=== PATIENT | female | born 1930 | race Caucasian/White ===

== ENCOUNTER 2017-08-23 10:41 | Inpatient (IN) | payer MEDICARE ==
[2017-08-23] MEDS ORDERED: NS 0.9% 1000 ML* 1,000 ML IV ONE (11:23)
[2017-08-23 11:59] LABS: ABS Basophils 0.1 10^3/ul (0-0.2); ABS Eosinophils 0 10^3/ul (0-0.6); ABS Lymphocytes 0.5 10^3/ul (1.0-4.8); ABS Monocytes 0.7 10^3/ul (0-0.8); ABS Neutrophils 13.7 10^3/ul (1.5-7.7); ABS Nucleated RBC 0 10^3/ul; Eosinophil % 0 % (0-6); Hematocrit 39 % (35-47); Hemoglobin 13.1 g/dl (12.0-16.0); Lymphocyte % 3.6 % (25-47); Mean Corpuscular HGB Conc 34 g/dl (31-36); Mean Corpuscular Hemoglobin 29 pg (27-31); Mean Corpuscular Volume 85 fL (80-97); Mean Platelet Volume 8 um3 (7.4-10.4); Nucleated Red Blood Cells % 0; Platelet Count 341 10^3/ul (150-450); Red Blood Count 4.55 10^6/ul (4.0-5.4); Red Cell Distribution Width 15 % (10.5-15)
[2017-08-23 12:14] LABS: EGFR Non-African American 61.3 (>60)
[2017-08-23 12:41] LABS: Urine Appearance Cloudy; Urine Blood 1+ (Negative); Urine Color Yellow; Urine Ketones 2+ (Negative); Urine Protein 2+(100 mg/dL) (Negative); Urine Urobilinogen Negative (Negative)
[2017-08-23] MEDS: KCL 10 MEQ/50 ML IVPREMIX* 10 MEQ/50 ML BAG IV SCH ×2 (13:21→22:58)
--- NOTE | 2017-08-23 13:22 | RAD ---
INDICATION: Abdominal pain COMPARISON: None TECHNIQUE: Decubitus and supine views of the abdomen are submitted. FINDINGS: Bones: There are no acute bony findings. Soft tissues: The soft tissues appear normal. The psoas margins are sharp. Bowel gas pattern: There are scattered air-filled loops small bowel but there is air within in the colon and there is no bowel dilatation. The findings could be related to an earlier partial small bowel obstruction. Suggest follow-up as clinically indicated. Calcifications: There are no abnormal calcifications. Other: None IMPRESSION: POSSIBLE EARLY OR PARTIAL SMALL BOWEL OBSTRUCTION. SUGGEST A FOLLOW-UP ABDOMINAL SERIES.
[2017-08-23] MEDS ORDERED: Potassium Chlor TAB* 20 MEQ TAB.ER PO ONE (16:09)
[2017-08-23] MEDS ORDERED: Magnesium Sulfate 1 GM IV* 1 GM/100 ML BAG IV ONE (16:09)
[2017-08-23] MEDS ORDERED: NS 0.9% 1000 ML* 1,000 ML IV SCH (16:15)
--- NOTE | 2017-08-23 17:00 | RAD ---
INDICATION: Cough. COMPARISON: Comparison is made with prior study from April 20, 2005. TECHNIQUE: A portable view of the chest was obtained. FINDINGS: Cardiac and mediastinal contours appear to be within normal limits. The lungs are hyperinflated and clear. No pleural effusion is seen. IMPRESSION: FINDINGS SUGGESTIVE OF COPD, NO EVIDENCE FOR ACUTE FINDING.
--- NOTE | 2017-08-23 18:18 | ED ---
Emmanuel Gan Nilda, scribed for Esteban Collins MD on 08/23/17 at 1123 . GI/ HPI - HPI Summary HPI Summary: This patient is an 87 year old F presenting to [facility] accompanied by daughter with a chief complaint of UTI symptoms for the past couple of days. The patient rates the pain 0/10 in severity. Symptoms aggravated and alleviated by nothing. Daughter reports nausea, vomiting (2x, today), lower abd pain, urinary retention (past couple of days), and increased confusion, but denies cough and fever. Pt states no PMHx UTI. - History of Current Complaint Chief Complaint: EDAbdPain Time Seen by Provider: 08/23/17 11:08 Stated Complaint: VOMITING Hx Obtained From: Patient, Family/Heat Treat Operator - daughter Onset/Duration: Started Days Ago, Still Present Timing: Constant Pain Intensity: 0 Location of Pain: LLQ Additional Signs & Symptoms: Positive: Other: - nausea, vomiting (2x), lower abd pain, urinary retention, and increased confusion, but denies cough and fever Aggravating Factor(s): Nothing Alleviating Factor(s): Nothing - Allergy/Home Medications Allergies/Adverse Reactions: Allergies Allergy/AdvReac Type Severity Reaction Status Date / Time No Known Allergies Allergy Verified 10/02/12 17:24 Home Medications: Home Medications NK [No Home Medications Reported] 08/23/17 [History Confirmed 08/23/17] PMH/Surg Hx/FS Hx/Imm Hx Endocrine/Hematology History: Denies: Hx Diabetes, Hx Thyroid Disease Cardiovascular History: Reports: Hx Hypertension Respiratory History: Denies: Hx Asthma, Hx Chronic Obstructive Pulmonary Disease (COPD) GI History: Denies: Hx Ulcer Infectious Disease History: No Infectious Disease History: Denies: Hx Hepatitis, Hx Human Immunodeficiency Virus (HIV), Traveled Outside the [place] in Last 30 Days - Family History Known Family History: Positive: Other - negative abd issues - Social History Occupation: Retired Lives: Alone Substance Use Type: Reports: None Review of Systems Negative: Fever Negative: Cough Positive: Abdominal Pain - LLQ, Vomiting, Nausea Positive: other - retention Neurological: Other - increased confusion All Other Systems Reviewed And Are Negative: Yes Physical Exam - Summary Physical Exam Summary: VITAL SIGNS: Reviewed. GENERAL: Patient is fragile, cachectic, unkept-appearing, elderly female who is lying comfortable in the stretcher. Patient is not in any acute respiratory distress. HEAD AND FACE: No signs of trauma. No ecchymosis, hematomas or skull depressions. No sinus tenderness. EYES: PERRLA, EOMI x 2, No injected conjunctiva, no nystagmus. EARS: Hearing grossly intact. Ear canals and tympanic membranes are within normal limits. MOUTH: Oropharynx within normal limits except for dry oral mucosa. NECK: Supple, trachea is midline, no adenopathy, no JVD, no carotid bruit, no c- spine tenderness, neck with full ROM. CHEST: Symmetric, no tenderness at palpation LUNGS: Clear to auscultation bilaterally. No wheezing or crackles. CVS: Regular rate and rhythm, S1 and S2 present, no murmurs or gallops appreciated. ABDOMEN: Soft, LLQ tenderness. No signs of distention. No rebound no guarding, and no masses palpated. Bowel sounds are normal. EXTREMITIES: FROM in all major joints, no edema, no cyanosis or clubbing. NEURO: Alert and oriented x 3. No acute neurological deficits. Speech is normal and follows commands. SKIN: Dry and warm Triage Information Reviewed: Yes Vital Signs On Initial Exam: Initial Vitals Temp Pulse Resp BP Pulse Ox 98.1 F 92 16 132/66 94 08/23/17 10:42 08/23/17 10:42 08/23/17 10:42 08/23/17 10:42 08/23/17 10:42 Vital Signs Reviewed: Yes Diagnostics - Vital Signs Vital Signs Temp Pulse Resp BP Pulse Ox 08/23/17 10:42 98.1 F 92 16 132/66 94 - Laboratory Lab Results: Lab Results 08/23/17 08/23/17 08/23/17 Range/Units 11:35 11:35 11:35 WBC 15.0 H (3.5-10.8) 10^3/ul RBC 4.55 (4.0-5.4) 10^6/ul Hgb 13.1 (12.0-16.0) g/dl Hct 39 (35-47) % MCV 85 (80-97) fL MCH 29 (27-31) pg MCHC 34 (31-36) g/dl RDW 15 (10.5-15) % Plt Count 341 (150-450) 10^3/ul MPV 8 (7.4-10.4) um3 Neut % (Auto) 91.0 H (38-83) % Lymph % (Auto) 3.6 L (25-47) % Gentry % (Auto) 4.9 (1-9) % Eos % (Auto) 0 (0-6) % Baso % (Auto) 0.5 (0-2) % Absolute Neuts (auto) 13.7 H (1.5-7.7) 10^3/ul Absolute Lymphs (auto) 0.5 L (1.0-4.8) 10^3/ul Absolute Monos (auto) 0.7 (0-0.8) 10^3/ul Absolute Eos (auto) 0 (0-0.6) 10^3/ul Absolute Basos (auto) 0.1 (0-0.2) 10^3/ul Absolute Nucleated RBC 0 10^3/ul Nucleated RBC % 0 APTT (26.0-36.3) seconds Sodium 129 L (133-145) mmol/L Potassium 3.1 L (3.5-5.0) mmol/L Chloride 92 L (101-111) mmol/L Carbon Dioxide 24 (22-32) mmol/L Anion Gap 13 H (2-11) mmol/L BUN 24 (6-24) mg/dL Creatinine 0.87 (0.51-0.95) mg/dL Est GFR ( Amer) 78.8 (>60) Est GFR (Non-Af Amer) 61.3 (>60) BUN/Creatinine Ratio 27.6 H (8-20) Glucose 91 (70-100) mg/dL Lactic Acid 0.9 (0.5-2.0) mmol/L Calcium 9.5 (8.6-10.3) mg/dL Magnesium 1.9 (1.9-2.7) mg/dL Total Bilirubin 2.70 H (0.2-1.0) mg/dL AST 32 (13-39) U/L ALT 12 (7-52) U/L Alkaline Phosphatase 59 (34-104) U/L Ammonia Total Creatine Kinase 631 H (10-223) U/L Troponin I 0.19 H* (<0.04) ng/mL C-Reactive Protein 147.52 H (< 5.00) mg/L B-Natriuretic Peptide ( - 100) pg/mL Total Protein 7.0 (6.4-8.9) g/dL Albumin 3.5 (3.2-5.2) g/dL Globulin 3.5 (2-4) g/dL Albumin/Globulin Ratio 1.0 (1-3) Lipase 11 (11.0-82.0) U/L Urine Color Urine Appearance Urine pH (5-9) Ur Specific [place] (1.010-1.030) Urine Protein (Negative) Urine Ketones (Negative) Urine Blood (Negative) Urine Nitrate (Negative) Urine Bilirubin (Negative) Urine Urobilinogen (Negative) Ur Leukocyte Esterase (Negative) Urine WBC (Auto) (Absent) Urine RBC (Auto) (Absent) Ur Squamous Epith Cells (Absent) Urine Bacteria (Absent) Hyaline Casts (Absent) Urine Glucose (Negative) 08/23/17 08/23/17 08/23/17 Range/Units 11:35 11:35 12:05 WBC (3.5-10.8) 10^3/ul RBC (4.0-5.4) 10^6/ul Hgb (12.0-16.0) g/dl Hct (35-47) % MCV (80-97) fL MCH (27-31) pg MCHC (31-36) g/dl RDW (10.5-15) % Plt Count (150-450) 10^3/ul MPV (7.4-10.4) um3 Neut % (Auto) (38-83) % Lymph % (Auto) (25-47) % Gentry % (Auto) (1-9) % Eos % (Auto) (0-6) % Baso % (Auto) (0-2) % Absolute Neuts (auto) (1.5-7.7) 10^3/ul Absolute Lymphs (auto) (1.0-4.8) 10^3/ul Absolute Monos (auto) (0-0.8) 10^3/ul Absolute Eos (auto) (0-0.6) 10^3/ul Absolute Basos (auto) (0-0.2) 10^3/ul Absolute Nucleated RBC 10^3/ul Nucleated RBC % APTT 27.7 (26.0-36.3) seconds Sodium (133-145) mmol/L Potassium (3.5-5.0) mmol/L Chloride (101-111) mmol/L Carbon Dioxide (22-32) mmol/L Anion Gap (2-11) mmol/L BUN (6-24) mg/dL Creatinine (0.51-0.95) mg/dL Est GFR ( Amer) (>60) Est GFR (Non-Af Amer) (>60) BUN/Creatinine Ratio (8-20) Glucose (70-100) mg/dL Lactic Acid (0.5-2.0) mmol/L Calcium (8.6-10.3) mg/dL Magnesium (1.9-2.7) mg/dL Total Bilirubin (0.2-1.0) mg/dL AST (13-39) U/L ALT (7-52) U/L Alkaline Phosphatase (34-104) U/L Ammonia TNP Total Creatine Kinase (10-223) U/L Troponin I (<0.04) ng/mL C-Reactive Protein (< 5.00) mg/L B-Natriuretic Peptide 287 H ( - 100) pg/mL Total Protein (6.4-8.9) g/dL Albumin (3.2-5.2) g/dL Globulin (2-4) g/dL Albumin/Globulin Ratio (1-3) Lipase (11.0-82.0) U/L Urine Color Yellow Urine Appearance Cloudy Urine pH 6.0 (5-9) Ur Specific [place] 1.020 (1.010-1.030) Urine Protein 2+(100 mg/dl) H (Negative) Urine Ketones 2+ H (Negative) Urine Blood 1+ H (Negative) Urine Nitrate Negative (Negative) Urine Bilirubin Negative (Negative) Urine Urobilinogen Negative (Negative) Ur Leukocyte Esterase Negative (Negative) Urine WBC (Auto) Trace(0-5/hpf) (Absent) Urine RBC (Auto) 3+(>10/hpf) H (Absent) Ur Squamous Epith Cells Present H (Absent) Urine Bacteria Absent (Absent) Hyaline Casts Present H (Absent) Urine Glucose Negative (Negative) 08/23/17 Range/Units 12:29 WBC (3.5-10.8) 10^3/ul RBC (4.0-5.4) 10^6/ul Hgb (12.0-16.0) g/dl Hct (35-47) % MCV (80-97) fL MCH (27-31) pg MCHC (31-36) g/dl RDW (10.5-15) % Plt Count (150-450) 10^3/ul MPV (7.4-10.4) um3 Neut % (Auto) (38-83) % Lymph % (Auto) (25-47) % Gentry % (Auto) (1-9) % Eos % (Auto) (0-6) % Baso % (Auto) (0-2) % Absolute Neuts (auto) (1.5-7.7) 10^3/ul Absolute Lymphs (auto) (1.0-4.8) 10^3/ul Absolute Monos (auto) (0-0.8) 10^3/ul Absolute Eos (auto) (0-0.6) 10^3/ul Absolute Basos (auto) (0-0.2) 10^3/ul Absolute Nucleated RBC 10^3/ul Nucleated RBC % APTT (26.0-36.3) seconds Sodium (133-145) mmol/L Potassium (3.5-5.0) mmol/L Chloride (101-111) mmol/L Carbon Dioxide (22-32) mmol/L Anion Gap (2-11) mmol/L BUN (6-24) mg/dL Creatinine (0.51-0.95) mg/dL Est GFR ( Amer) (>60) Est GFR (Non-Af Amer) (>60) BUN/Creatinine Ratio (8-20) Glucose (70-100) mg/dL Lactic Acid (0.5-2.0) mmol/L Calcium (8.6-10.3) mg/dL Magnesium (1.9-2.7) mg/dL Total Bilirubin (0.2-1.0) mg/dL AST (13-39) U/L ALT (7-52) U/L Alkaline Phosphatase (34-104) U/L Ammonia 38 Total Creatine Kinase (10-223) U/L Troponin I (<0.04) ng/mL C-Reactive Protein (< 5.00) mg/L B-Natriuretic Peptide ( - 100) pg/mL Total Protein (6.4-8.9) g/dL Albumin (3.2-5.2) g/dL Globulin (2-4) g/dL Albumin/Globulin Ratio (1-3) Lipase (11.0-82.0) U/L Urine Color Urine Appearance Urine pH (5-9) Ur Specific [place] (1.010-1.030) Urine Protein (Negative) Urine Ketones (Negative) Urine Blood (Negative) Urine Nitrate (Negative) Urine Bilirubin (Negative) Urine Urobilinogen (Negative) Ur Leukocyte Esterase (Negative) Urine WBC (Auto) (Absent) Urine RBC (Auto) (Absent) Ur Squamous Epith Cells (Absent) Urine Bacteria (Absent) Hyaline Casts (Absent) Urine Glucose (Negative) Result Diagrams: 08/23/17 11:35 08/23/17 11:35 Lab Statement: Any lab studies that have been ordered have been reviewed, and results considered in the medical decision making process. - Radiology CXR Radiology Interpretation Completed By: Radiologist - CXR, per radiologist, reveals findings suggestive of COPD. No evidence for acute finding. Dr. Collins has reviewed this radiology report. Abd XR Radiology Interpretation Completed By: Radiologist - Abd XR, per radiologist, reveals possible early or partial small bowel obstruction. Suggest a follow up abdominal series. Dr. Collins has reviewed this radiology report. - EKG 1129 Cardiac Rate: NL EKG Rhythm: Sinus Rhythm EKG Interpretation: no ST elevations GIGU Course/Dx - Course Assessment/Plan: In the ED course an IV access was obtained. Patient was placed in a pleasure craft sailor. Patient was started with IV fluids since she seem to be very dehydrated and cachectic. Labs without any significant abnormality except for increased WBCs Hyponatremia, hypokalemia, CPK 631, troponin 0.19 and BNP 287. UA negative for UTI but positive for dehydration. EKG shows a NSR w/o ST elevations. CXR impression: No acute pathology, but suggestive of COPD. In the ED course she is unable to urinate. Bladder scan more than 500 cc. She was placed in a urinary bladder catheter for he urinary retention. She was given potassium and magnesium. She was given ASA. I discuss my physical exam, findings and test results with Dr. Yoder from the hospitalist services and she agrees to admit patient to his services. Patient is hemodynamically stable alert. - Diagnoses Differential Diagnoses - Female: ACS, SC, Urinary Tract Infection Provider Diagnoses: increased troponin r/o ACS, FTT (failure to thrive) in adult, Hypokalemia, Hyponatremia - Physician Notifications Discussed Care Of Patient With: Taz Yoder - hospitalist Time Discussed With Above Provider: 13:03 Instructed by Provider To: Admit As Inpatient Discharge - Discharge Plan Condition: Stable Disposition: ADMITTED TO [facility] The documentation as recorded by the Emmanuel ortiz Nilda accurately reflects the service I personally performed and the decisions made by Dennis dowell Walter, MD.
[2017-08-23] MEDS: Haloperidol INJ IV/IM* 5 MG/ML AMP IM PRN (19:35)
[2017-08-23] MEDS ORDERED: Haloperidol INJ IV/IM* 5 MG/ML AMP IV ONE (20:14)
--- NOTE | 2017-08-23 21:22 | HP ---
AMENDED REPORT NOW INCLUDES COSIGNER DESIGNATION - ESIGNED BEFORE ADJUSTMENT ADMISSION HISTORY AND PHYSICAL: DATE OF ADMISSION: 08/23/17. PRIMARY CARE PHYSICIAN: Dr. Snow. ATTENDING PROVIDER: Dr. Yoder * (DICTATED BY EMERSON LORD, JULISSA) CHIEF COMPLAINT: Altered mental status and abdominal pain. HISTORY OF PRESENT ILLNESS: This is an 87-year-old female patient, who was brought in by her daughter for a complaint of acute change in mental status. I am not able to get a review of systems from the patient herself, she is quite confused at this time. However, I did call the daughter and tried to piece together from what the ER notes were and from what the daughter tells me. So, the patient approximately 24 to 36 hours ago began to have hallucinations and had several falls at home. Initially, she had called Dr. Snow's office to bring her in for a visit to her primary care provider; however, she became again additionally acutely confused. The patient was brought into the emergency department and found to be retaining urine with her abdominal pain and it looks like on her x-ray of her abdomen that maybe there was an old partial small bowel obstruction. She had a Yung catheter placed, which produced a large amount of urine which is now flowing freely. However, the patient has remained persistently confused. I have ordered a chest x- ray on the patient, which appears to be clear, some hyperinflation. She also has a white cell count and likely UTI. PAST MEDICAL HISTORY: None, as per the daughter. PAST SURGICAL HISTORY: None. PAST MEDICATIONS: None. ALLERGIES: No known drug allergies. REVIEW OF SYSTEMS: Unable to obtain secondary to the patient's mental status. PHYSICAL EXAMINATION GENERAL: Again, difficult to obtain, the patient is quite anxious, agitated at times trying to get out of the bed. VITAL SIGNS: Temperature 98.9, heart rate 88, respiratory rate 16, O2 saturation 96%, blood pressure 138/86. HEENT: The patient is atraumatic, normocephalic. PERRLA with nonicteric sclerae. NECK: Supple. No thyromegaly appreciated. No carotid bruit auscultated. LUNGS: Diminished at the bases. No adventitious breath sounds noted. CARDIOVASCULAR: S1, S2 present. No murmurs, gallops, or rubs. Rate and rhythm are regular. ABDOMEN: The patient would not let me palpate her abdomen. MUSCULOSKELETAL: She appears to have gross motor and sensation intact. However , she is weak when she stands up. She is trying to climb out of bed. NEUROLOGIC: She is grossly confused and hallucinating. LABORATORY DATA: WBC is 15.0, RBC is 4.55, hemoglobin 13.1, hematocrit 39, platelets 341. Sodium 129, potassium 3.1, chloride 92, CO2 24, BUN 24, creatinine 0.87, total bilirubin 2.70, AST 32, ALT 12, alk phos 59, ammonia 38, total creatinine kinase is 631, troponin I is 0.19 and 0.12. CRP 147.52, BNP 287. Protein 7.0, albumin 3.5. Urinalysis shows yellow cloudy urine, pH of 6, specific gravity 1.020, 2+ protein, 2+ ketones, 1+ blood, negative for nitrites or bilirubin, negative for leukocyte esterase, trace wbc's, 3+ rbc's, squamous epithelial cells, absent bacteria, and she does have hyaline casts. IMAGING: Chest x-ray does not appear to have any acute cardiopulmonary process. Abdomen appears to have either an old small bowel obstruction or a small bowel obstruction that is resolving. IMPRESSION: This is an acutely confused 87-year-old female that in the last 24 to 48 hours, that although she has had some history of some short-term memory deficit is now presenting with bizarre behavior. She has been admitted inpatient. PLAN: She has a Yung catheter inserted now. We will continue to screen her urine and may give her some ceftriaxone now to cover her urine. Follow cultures as needed. Her blood pressure is stable. She does not appear septic at this point. However, I am very concerned that with the falls and the patient does live at home by herself. She does appear to be very cachectic. Her BMI is only 18. She is 5 feet tall and weighs only 97 pounds. I am concerned that her nutritional status has been poor as well. The daughter tells me that she prepare meals for her, but she is not sure if she is eating them and with the falls, I think it is warranted that she should have a CAT scan of her head to make sure there is no acute intracranial process. Beyond that, we will see what these results reveal and then continue to treat accordingly. Right now, I would like to give the patient a little bit of Haldol. She is interfering with her care and climbing out of the bed, I am concerned that she may fall again, so she can have that every 6 hours as needed. The daughter, Angelica, who is her medical proxy will also bring her advanced directives and any paper work regarding code status. For now, she will stay full code until we hear otherwise. Rest of the patient's course will be determined by further diagnostics, laboratories, and any other input from other providers as warranted during this admission. We will continue to monitor the patient's status closely. This has been discussed with Dr. Darrion Yoder, the attending on this case. EMERSON LORD, TUMBLING BARREL PAINTER [id number]/CPS #: [id number] DARI
--- NOTE | 2017-08-23 22:09 | RAD ---
INDICATION: Altered mental status fall's. COMPARISON: There are no prior studies available for comparison. TECHNIQUE: Contiguous axial sections of the brain were obtained from the skull base to the vertex without contrast. The exam is extremely limited due to motion artifact. The patient was uncooperative for the study. FINDINGS: The ventricles and sulci are prominent consistent with diffuse atrophy. No gross focal abnormality or mass effect is seen. The paranasal sinuses and mastoid air cells appear clear. IMPRESSION: EXTREMELY LIMITED STUDY DUE TO MOTION ARTIFACT. NO GROSS ABNORMALITY OR MASS EFFECT IS SEEN.
[2017-08-23] MEDS: Acetaminophen TAB* 325 MG PO PRN (22:52)
[2017-08-24] MEDS: traMADol TAB* 50 MG PO PRN (00:36)
[2017-08-24 06:58] LABS: Hematocrit 34 % (35-47); Hemoglobin 11.4 g/dl (12.0-16.0); Mean Corpuscular HGB Conc 34 g/dl (31-36); Mean Corpuscular Hemoglobin 29 pg (27-31); Mean Corpuscular Volume 86 fL (80-97); Mean Platelet Volume 8 um3 (7.4-10.4); Platelet Count 315 10^3/ul (150-450); Red Blood Count 3.96 10^6/ul (4.0-5.4); Red Cell Distribution Width 15 % (10.5-15); White Blood Count 11.3 10^3/ul (3.5-10.8)
[2017-08-24 07:04] LABS: ABS Basophils 0.1 10^3/ul (0-0.2); ABS Eosinophils 0 10^3/ul (0-0.6); ABS Monocytes 0.9 10^3/ul (0-0.8); ABS Neutrophils 9.4 10^3/ul (1.5-7.7); ABS Nucleated RBC 0 10^3/ul; Eosinophil % 0.4 % (0-6); Lymphocyte % 8.6 % (25-47); Nucleated Red Blood Cells % 0.1
[2017-08-24 07:14] LABS: EGFR Non-African American 77.5 (>60)
--- NOTE | 2017-08-24 11:07 | RAD ---
INDICATION: Follow-up small bowel obstruction COMPARISON: Similar examination August 23, 2017 TECHNIQUE: Supine, upright and left lateral decubitus views of the abdomen were obtained. FINDINGS: The small bowel and colon do not appear to be pathologically distended. There is stool noted overlying the rectum measuring 5.3 cm in diameter. No free intraperitoneal air is seen. No grossly abnormal or pathologic appearing calcifications are noted. Visualized bones are within normal limits for the patient's age. IMPRESSION: Gas and stool is seen throughout the colon but there is no radiographic appearance of pathologic dilatation or free intraperitoneal air.
--- NOTE | 2017-08-24 11:30 | PN ---
Subjective Date of Service: 08/24/17 Interval History: Pt c/o sore throat. Objective Active Medications: Acetaminophen (Tylenol Tab*) 650 mg PO Q6H PRN PRN Reason: FEVER/PAIN Last Admin: 08/23/17 22:52 Dose: 650 mg Haloperidol Lactate (Haldol Inj Iv/Im*) 0.5 mg IM Q6H PRN PRN Reason: AGITATION Last Admin: 08/23/17 19:35 Dose: 0.5 mg Sodium Chloride (Ns 0.9% 1000 Ml*) 1,000 mls @ 75 mls/hr IV PER RATE JOSE M Last Admin: 08/23/17 16:33 Dose: 75 mls/hr Tramadol HCl (Ultram*) 50 mg PO Q6H PRN PRN Reason: PAIN Last Admin: 08/24/17 00:36 Dose: 50 mg Vital Signs - 8 hr 08/24/17 08/24/17 08/24/17 03:45 04:04 08:11 Temperature 97.8 F 98.2 F Pulse Rate 85 93 75 Respiratory 20 16 Rate Blood Pressure 172/98 144/64 151/68 (mmHg) O2 Sat by Pulse 99 97 Oximetry Oxygen Devices in Use Now: None Appearance: Alert, partly up in bed. In good spirits. Looks comfortable. Eyes: No Scleral Icterus Ears/Nose/Mouth/Throat: Clear Oropharnyx, Mucous Membranes Moist Neck: NL Appearance and Movements; NL JVP, No Thyroid Enlargement, Masses Respiratory: Symmetrical Chest Expansion and Respiratory Effort, Clear to Auscultation, Clear to Percussion Cardiovascular: RRR, No Edema, - - soft systolic murmur RSB Extremities: No Edema, No Clubbing, Cyanosis, - Skin: No Rash or Ulcers, No Nodules or Sclerosis, - Neurological: NL Sensation - Disoriented. Fair verbal skills. She did know her age. LIAO. No tremor. Result Diagrams: 08/24/17 06:27 08/24/17 06:27 Additional Lab and Data: Lab Results 08/23/17 08/23/17 08/23/17 Range/Units 11:35 11:35 11:35 WBC 15.0 H (3.5-10.8) 10^3/ul RBC 4.55 (4.0-5.4) 10^6/ul Hgb 13.1 (12.0-16.0) g/dl Hct 39 (35-47) % MCV 85 (80-97) fL MCH 29 (27-31) pg MCHC 34 (31-36) g/dl RDW 15 (10.5-15) % Plt Count 341 (150-450) 10^3/ul MPV 8 (7.4-10.4) um3 Neut % (Auto) 91.0 H (38-83) % Lymph % (Auto) 3.6 L (25-47) % [place] % (Auto) 4.9 (1-9) % Eos % (Auto) 0 (0-6) % Baso % (Auto) 0.5 (0-2) % Absolute Neuts (auto) 13.7 H (1.5-7.7) 10^3/ul Absolute Lymphs (auto) 0.5 L (1.0-4.8) 10^3/ul Absolute Monos (auto) 0.7 (0-0.8) 10^3/ul Absolute Eos (auto) 0 (0-0.6) 10^3/ul Absolute Basos (auto) 0.1 (0-0.2) 10^3/ul Absolute Nucleated RBC 0 10^3/ul Nucleated RBC % 0 APTT (26.0-36.3) seconds Sodium 129 L (133-145) mmol/L Potassium 3.1 L (3.5-5.0) mmol/L Chloride 92 L (101-111) mmol/L Carbon Dioxide 24 (22-32) mmol/L Anion Gap 13 H (2-11) mmol/L BUN 24 (6-24) mg/dL Creatinine 0.87 (0.51-0.95) mg/dL Est GFR ( Amer) 78.8 (>60) Est GFR (Non-Af Amer) 61.3 (>60) BUN/Creatinine Ratio 27.6 H (8-20) Glucose 91 (70-100) mg/dL Lactic Acid 0.9 (0.5-2.0) mmol/L Calcium 9.5 (8.6-10.3) mg/dL Magnesium 1.9 (1.9-2.7) mg/dL Total Bilirubin 2.70 H (0.2-1.0) mg/dL AST 32 (13-39) U/L ALT 12 (7-52) U/L Alkaline Phosphatase 59 (34-104) U/L Ammonia Total Creatine Kinase 631 H (10-223) U/L Troponin I 0.19 H* (<0.04) ng/mL C-Reactive Protein 147.52 H (< 5.00) mg/L B-Natriuretic Peptide ( - 100) pg/mL Total Protein 7.0 (6.4-8.9) g/dL Albumin 3.5 (3.2-5.2) g/dL Globulin 3.5 (2-4) g/dL Albumin/Globulin Ratio 1.0 (1-3) Lipase 11 (11.0-82.0) U/L Urine Color Urine Appearance Urine pH (5-9) Ur Specific [place] (1.010-1.030) Urine Protein (Negative) Urine Ketones (Negative) Urine Blood (Negative) Urine Nitrate (Negative) Urine Bilirubin (Negative) Urine Urobilinogen (Negative) Ur Leukocyte Esterase (Negative) Urine WBC (Auto) (Absent) Urine RBC (Auto) (Absent) Ur Squamous Epith Cells (Absent) Urine Bacteria (Absent) Hyaline Casts (Absent) Urine Glucose (Negative) 08/23/17 08/23/17 08/23/17 Range/Units 11:35 11:35 12:05 WBC (3.5-10.8) 10^3/ul RBC (4.0-5.4) 10^6/ul Hgb (12.0-16.0) g/dl Hct (35-47) % MCV (80-97) fL MCH (27-31) pg MCHC (31-36) g/dl RDW (10.5-15) % Plt Count (150-450) 10^3/ul MPV (7.4-10.4) um3 Neut % (Auto) (38-83) % Lymph % (Auto) (25-47) % [place] % (Auto) (1-9) % Eos % (Auto) (0-6) % Baso % (Auto) (0-2) % Absolute Neuts (auto) (1.5-7.7) 10^3/ul Absolute Lymphs (auto) (1.0-4.8) 10^3/ul Absolute Monos (auto) (0-0.8) 10^3/ul Absolute Eos (auto) (0-0.6) 10^3/ul Absolute Basos (auto) (0-0.2) 10^3/ul Absolute Nucleated RBC 10^3/ul Nucleated RBC % APTT 27.7 (26.0-36.3) seconds Sodium (133-145) mmol/L Potassium (3.5-5.0) mmol/L Chloride (101-111) mmol/L Carbon Dioxide (22-32) mmol/L Anion Gap (2-11) mmol/L BUN (6-24) mg/dL Creatinine (0.51-0.95) mg/dL Est GFR ( Amer) (>60) Est GFR (Non-Af Amer) (>60) BUN/Creatinine Ratio (8-20) Glucose (70-100) mg/dL Lactic Acid (0.5-2.0) mmol/L Calcium (8.6-10.3) mg/dL Magnesium (1.9-2.7) mg/dL Total Bilirubin (0.2-1.0) mg/dL AST (13-39) U/L ALT (7-52) U/L Alkaline Phosphatase (34-104) U/L Ammonia TNP Total Creatine Kinase (10-223) U/L Troponin I (<0.04) ng/mL C-Reactive Protein (< 5.00) mg/L B-Natriuretic Peptide 287 H ( - 100) pg/mL Total Protein (6.4-8.9) g/dL Albumin (3.2-5.2) g/dL Globulin (2-4) g/dL Albumin/Globulin Ratio (1-3) Lipase (11.0-82.0) U/L Urine Color Yellow Urine Appearance Cloudy Urine pH 6.0 (5-9) Ur Specific [place] 1.020 (1.010-1.030) Urine Protein 2+(100 mg/dl) H (Negative) Urine Ketones 2+ H (Negative) Urine Blood 1+ H (Negative) Urine Nitrate Negative (Negative) Urine Bilirubin Negative (Negative) Urine Urobilinogen Negative (Negative) Ur Leukocyte Esterase Negative (Negative) Urine WBC (Auto) Trace(0-5/hpf) (Absent) Urine RBC (Auto) 3+(>10/hpf) H (Absent) Ur Squamous Epith Cells Present H (Absent) Urine Bacteria Absent (Absent) Hyaline Casts Present H (Absent) Urine Glucose Negative (Negative) 08/23/17 Range/Units 12:29 WBC (3.5-10.8) 10^3/ul RBC (4.0-5.4) 10^6/ul Hgb (12.0-16.0) g/dl Hct (35-47) % MCV (80-97) fL MCH (27-31) pg MCHC (31-36) g/dl RDW (10.5-15) % Plt Count (150-450) 10^3/ul MPV (7.4-10.4) um3 Neut % (Auto) (38-83) % Lymph % (Auto) (25-47) % [place] % (Auto) (1-9) % Eos % (Auto) (0-6) % Baso % (Auto) (0-2) % Absolute Neuts (auto) (1.5-7.7) 10^3/ul Absolute Lymphs (auto) (1.0-4.8) 10^3/ul Absolute Monos (auto) (0-0.8) 10^3/ul Absolute Eos (auto) (0-0.6) 10^3/ul Absolute Basos (auto) (0-0.2) 10^3/ul Absolute Nucleated RBC 10^3/ul Nucleated RBC % APTT (26.0-36.3) seconds Sodium (133-145) mmol/L Potassium (3.5-5.0) mmol/L Chloride (101-111) mmol/L Carbon Dioxide (22-32) mmol/L Anion Gap (2-11) mmol/L BUN (6-24) mg/dL Creatinine (0.51-0.95) mg/dL Est GFR ( Amer) (>60) Est GFR (Non-Af Amer) (>60) BUN/Creatinine Ratio (8-20) Glucose (70-100) mg/dL Lactic Acid (0.5-2.0) mmol/L Calcium (8.6-10.3) mg/dL Magnesium (1.9-2.7) mg/dL Total Bilirubin (0.2-1.0) mg/dL AST (13-39) U/L ALT (7-52) U/L Alkaline Phosphatase (34-104) U/L Ammonia 38 Total Creatine Kinase (10-223) U/L Troponin I (<0.04) ng/mL C-Reactive Protein (< 5.00) mg/L B-Natriuretic Peptide ( - 100) pg/mL Total Protein (6.4-8.9) g/dL Albumin (3.2-5.2) g/dL Globulin (2-4) g/dL Albumin/Globulin Ratio (1-3) Lipase (11.0-82.0) U/L Urine Color Urine Appearance Urine pH (5-9) Ur Specific [place] (1.010-1.030) Urine Protein (Negative) Urine Ketones (Negative) Urine Blood (Negative) Urine Nitrate (Negative) Urine Bilirubin (Negative) Urine Urobilinogen (Negative) Ur Leukocyte Esterase (Negative) Urine WBC (Auto) (Absent) Urine RBC (Auto) (Absent) Ur Squamous Epith Cells (Absent) Urine Bacteria (Absent) Hyaline Casts (Absent) Urine Glucose (Negative) Assess/Plan/Problems-Billing Assessment: - Patient Problems (1) Dementia Current Visit: Yes Status: Acute Code(s): F03.90 - UNSPECIFIED DEMENTIA WITHOUT BEHAVIORAL DISTURBANCE SNOMED Code(s): 46065537 Comment: 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 Start quetiapine 25 mg q 6 PM. OT/PT eval. MRI brain to evaluate for possible CVA or other cause of somewhat abrupt increase in confusion. (2) Urinary retention Current Visit: Yes Status: Acute Code(s): R33.9 - RETENTION OF URINE, UNSPECIFIED SNOMED Code(s): 940525204 Comment: Patient had straight cath in ED with 600 ml drained, then Yung inserted. Urine C&S requested 2/3. Continue ceftriaxone for now.
[2017-08-24] MEDS ORDERED: QUEtiapine TAB* 25 MG PO SCH (18:00)
[2017-08-24] MEDS: Acetaminophen TAB* 325 MG PO PRN (22:48)
[2017-08-24] MEDS: QUEtiapine TAB* 25 MG PO SCH (22:50)
[2017-08-25] MEDS ORDERED: Magnesium Hydroxide LIQ* 30 ML UDC PO ONE (08:05)
--- NOTE | 2017-08-25 08:10 | PN ---
Subjective Date of Service: 08/25/17 Interval History: No c/o. Not clear if she would remember her problems. Objective Active Medications: Acetaminophen (Tylenol Tab*) 650 mg PO Q6H PRN PRN Reason: FEVER/PAIN Last Admin: 08/24/17 22:48 Dose: 650 mg Haloperidol Lactate (Haldol Inj Iv/Im*) 0.5 mg IM Q6H PRN PRN Reason: AGITATION Last Admin: 08/23/17 19:35 Dose: 0.5 mg Quetiapine Fumarate (Seroquel Tab*) 25 mg PO BEDTIME JOSE M Last Admin: 08/24/17 22:50 Dose: 25 mg Tramadol HCl (Ultram*) 50 mg PO Q6H PRN PRN Reason: PAIN Last Admin: 08/24/17 00:36 Dose: 50 mg Vital Signs - 8 hr 08/25/17 08/25/17 00:20 03:56 Temperature 98.2 F 98.3 F Pulse Rate 98 90 Respiratory 16 16 Rate Blood Pressure 148/51 146/67 (mmHg) O2 Sat by Pulse 92 95 Oximetry Oxygen Devices in Use Now: None Appearance: Alert, supine in bed. Neutral affect, passive. Looks comfortable. Eyes: No Scleral Icterus Respiratory: Clear to Auscultation, Clear to Percussion, Clear to Palpation Cardiovascular: NL Sounds; No Murmurs; No JVD, RRR, No Edema, - Abdominal: No Hepatosplenomegaly, - - scaphoid, soft, mild LUQ tenderness. Nl BS. No mass Extremities: No Edema, No Clubbing, Cyanosis, - Skin: No Rash or Ulcers, No Nodules or Sclerosis, - Neurological: NL Sensation - She gave her age as 37, could not name the present month. No tremor. Result Diagrams: 08/24/17 06:27 08/24/17 06:27 Additional Lab and Data: Lab Results 08/23/17 08/23/17 08/23/17 Range/Units 11:35 11:35 11:35 WBC 15.0 H (3.5-10.8) 10^3/ul RBC 4.55 (4.0-5.4) 10^6/ul Hgb 13.1 (12.0-16.0) g/dl Hct 39 (35-47) % MCV 85 (80-97) fL MCH 29 (27-31) pg MCHC 34 (31-36) g/dl RDW 15 (10.5-15) % Plt Count 341 (150-450) 10^3/ul MPV 8 (7.4-10.4) um3 Neut % (Auto) 91.0 H (38-83) % Lymph % (Auto) 3.6 L (25-47) % [place] % (Auto) 4.9 (1-9) % Eos % (Auto) 0 (0-6) % Baso % (Auto) 0.5 (0-2) % Absolute Neuts (auto) 13.7 H (1.5-7.7) 10^3/ul Absolute Lymphs (auto) 0.5 L (1.0-4.8) 10^3/ul Absolute Monos (auto) 0.7 (0-0.8) 10^3/ul Absolute Eos (auto) 0 (0-0.6) 10^3/ul Absolute Basos (auto) 0.1 (0-0.2) 10^3/ul Absolute Nucleated RBC 0 10^3/ul Nucleated RBC % 0 APTT (26.0-36.3) seconds Sodium 129 L (133-145) mmol/L Potassium 3.1 L (3.5-5.0) mmol/L Chloride 92 L (101-111) mmol/L Carbon Dioxide 24 (22-32) mmol/L Anion Gap 13 H (2-11) mmol/L BUN 24 (6-24) mg/dL Creatinine 0.87 (0.51-0.95) mg/dL Est GFR ( Amer) 78.8 (>60) Est GFR (Non-Af Amer) 61.3 (>60) BUN/Creatinine Ratio 27.6 H (8-20) Glucose 91 (70-100) mg/dL Lactic Acid 0.9 (0.5-2.0) mmol/L Calcium 9.5 (8.6-10.3) mg/dL Magnesium 1.9 (1.9-2.7) mg/dL Total Bilirubin 2.70 H (0.2-1.0) mg/dL AST 32 (13-39) U/L ALT 12 (7-52) U/L Alkaline Phosphatase 59 (34-104) U/L Ammonia Total Creatine Kinase 631 H (10-223) U/L Troponin I 0.19 H* (<0.04) ng/mL C-Reactive Protein 147.52 H (< 5.00) mg/L B-Natriuretic Peptide ( - 100) pg/mL Total Protein 7.0 (6.4-8.9) g/dL Albumin 3.5 (3.2-5.2) g/dL Globulin 3.5 (2-4) g/dL Albumin/Globulin Ratio 1.0 (1-3) Lipase 11 (11.0-82.0) U/L Urine Color Urine Appearance Urine pH (5-9) Ur Specific [place] (1.010-1.030) Urine Protein (Negative) Urine Ketones (Negative) Urine Blood (Negative) Urine Nitrate (Negative) Urine Bilirubin (Negative) Urine Urobilinogen (Negative) Ur Leukocyte Esterase (Negative) Urine WBC (Auto) (Absent) Urine RBC (Auto) (Absent) Ur Squamous Epith Cells (Absent) Urine Bacteria (Absent) Hyaline Casts (Absent) Urine Glucose (Negative) 08/23/17 08/23/17 08/23/17 Range/Units 11:35 11:35 12:05 WBC (3.5-10.8) 10^3/ul RBC (4.0-5.4) 10^6/ul Hgb (12.0-16.0) g/dl Hct (35-47) % MCV (80-97) fL MCH (27-31) pg MCHC (31-36) g/dl RDW (10.5-15) % Plt Count (150-450) 10^3/ul MPV (7.4-10.4) um3 Neut % (Auto) (38-83) % Lymph % (Auto) (25-47) % [place] % (Auto) (1-9) % Eos % (Auto) (0-6) % Baso % (Auto) (0-2) % Absolute Neuts (auto) (1.5-7.7) 10^3/ul Absolute Lymphs (auto) (1.0-4.8) 10^3/ul Absolute Monos (auto) (0-0.8) 10^3/ul Absolute Eos (auto) (0-0.6) 10^3/ul Absolute Basos (auto) (0-0.2) 10^3/ul Absolute Nucleated RBC 10^3/ul Nucleated RBC % APTT 27.7 (26.0-36.3) seconds Sodium (133-145) mmol/L Potassium (3.5-5.0) mmol/L Chloride (101-111) mmol/L Carbon Dioxide (22-32) mmol/L Anion Gap (2-11) mmol/L BUN (6-24) mg/dL Creatinine (0.51-0.95) mg/dL Est GFR ( Amer) (>60) Est GFR (Non-Af Amer) (>60) BUN/Creatinine Ratio (8-20) Glucose (70-100) mg/dL Lactic Acid (0.5-2.0) mmol/L Calcium (8.6-10.3) mg/dL Magnesium (1.9-2.7) mg/dL Total Bilirubin (0.2-1.0) mg/dL AST (13-39) U/L ALT (7-52) U/L Alkaline Phosphatase (34-104) U/L Ammonia TNP Total Creatine Kinase (10-223) U/L Troponin I (<0.04) ng/mL C-Reactive Protein (< 5.00) mg/L B-Natriuretic Peptide 287 H ( - 100) pg/mL Total Protein (6.4-8.9) g/dL Albumin (3.2-5.2) g/dL Globulin (2-4) g/dL Albumin/Globulin Ratio (1-3) Lipase (11.0-82.0) U/L Urine Color Yellow Urine Appearance Cloudy Urine pH 6.0 (5-9) Ur Specific [place] 1.020 (1.010-1.030) Urine Protein 2+(100 mg/dl) H (Negative) Urine Ketones 2+ H (Negative) Urine Blood 1+ H (Negative) Urine Nitrate Negative (Negative) Urine Bilirubin Negative (Negative) Urine Urobilinogen Negative (Negative) Ur Leukocyte Esterase Negative (Negative) Urine WBC (Auto) Trace(0-5/hpf) (Absent) Urine RBC (Auto) 3+(>10/hpf) H (Absent) Ur Squamous Epith Cells Present H (Absent) Urine Bacteria Absent (Absent) Hyaline Casts Present H (Absent) Urine Glucose Negative (Negative) 08/23/17 Range/Units 12:29 WBC (3.5-10.8) 10^3/ul RBC (4.0-5.4) 10^6/ul Hgb (12.0-16.0) g/dl Hct (35-47) % MCV (80-97) fL MCH (27-31) pg MCHC (31-36) g/dl RDW (10.5-15) % Plt Count (150-450) 10^3/ul MPV (7.4-10.4) um3 Neut % (Auto) (38-83) % Lymph % (Auto) (25-47) % [place] % (Auto) (1-9) % Eos % (Auto) (0-6) % Baso % (Auto) (0-2) % Absolute Neuts (auto) (1.5-7.7) 10^3/ul Absolute Lymphs (auto) (1.0-4.8) 10^3/ul Absolute Monos (auto) (0-0.8) 10^3/ul Absolute Eos (auto) (0-0.6) 10^3/ul Absolute Basos (auto) (0-0.2) 10^3/ul Absolute Nucleated RBC 10^3/ul Nucleated RBC % APTT (26.0-36.3) seconds Sodium (133-145) mmol/L Potassium (3.5-5.0) mmol/L Chloride (101-111) mmol/L Carbon Dioxide (22-32) mmol/L Anion Gap (2-11) mmol/L BUN (6-24) mg/dL Creatinine (0.51-0.95) mg/dL Est GFR ( Amer) (>60) Est GFR (Non-Af Amer) (>60) BUN/Creatinine Ratio (8-20) Glucose (70-100) mg/dL Lactic Acid (0.5-2.0) mmol/L Calcium (8.6-10.3) mg/dL Magnesium (1.9-2.7) mg/dL Total Bilirubin (0.2-1.0) mg/dL AST (13-39) U/L ALT (7-52) U/L Alkaline Phosphatase (34-104) U/L Ammonia 38 Total Creatine Kinase (10-223) U/L Troponin I (<0.04) ng/mL C-Reactive Protein (< 5.00) mg/L B-Natriuretic Peptide ( - 100) pg/mL Total Protein (6.4-8.9) g/dL Albumin (3.2-5.2) g/dL Globulin (2-4) g/dL Albumin/Globulin Ratio (1-3) Lipase (11.0-82.0) U/L Urine Color Urine Appearance Urine pH (5-9) Ur Specific [place] (1.010-1.030) Urine Protein (Negative) Urine Ketones (Negative) Urine Blood (Negative) Urine Nitrate (Negative) Urine Bilirubin (Negative) Urine Urobilinogen (Negative) Ur Leukocyte Esterase (Negative) Urine WBC (Auto) (Absent) Urine RBC (Auto) (Absent) Ur Squamous Epith Cells (Absent) Urine Bacteria (Absent) Hyaline Casts (Absent) Urine Glucose (Negative) Assess/Plan/Problems-Billing Assessment: - Patient Problems (1) Dementia Current Visit: Yes Status: Acute Code(s): F03.90 - UNSPECIFIED DEMENTIA WITHOUT BEHAVIORAL DISTURBANCE SNOMED Code(s): 23532534 Comment: 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 Start quetiapine 25 mg q 6 PM. OT/PT eval. MRI brain to evaluate for possible CVA or other cause of somewhat abrupt increase in confusion. (2) Urinary retention Current Visit: Yes Status: Acute Code(s): R33.9 - RETENTION OF URINE, UNSPECIFIED SNOMED Code(s): 815451452 Comment: Patient had straight cath in ED with 600 ml drained, then Yung inserted. Urine C&S requested 2/3. Continue ceftriaxone for now. (3) Constipation Current Visit: Yes Status: Acute Code(s): K59.00 - CONSTIPATION, UNSPECIFIED SNOMED Code(s): 88345126 Comment: Unknown date of last BM. MOM once, then PEG 17 gm q hs. This may be the cause of he abdominal tenderness.
[2017-08-25] MEDS ORDERED: Magnesium CITRATE* 300 ML BTL PO ONE (13:09)
[2017-08-25] MEDS: QUEtiapine TAB* 25 MG PO SCH (20:23)
[2017-08-25] MEDS: Acetaminophen TAB* 325 MG PO PRN (20:24)
[2017-08-25] MEDS: traMADol TAB* 50 MG PO PRN (22:50)
[2017-08-26 05:41] LABS: ABS Basophils 0.2 10^3/ul (0-0.2); ABS Eosinophils 0.1 10^3/ul (0-0.6); ABS Neutrophils 8.3 10^3/ul (1.5-7.7); ABS Nucleated RBC 0 10^3/ul; Eosinophil % 0.9 % (0-6); Hematocrit 33 % (35-47); Lymphocyte % 9.4 % (25-47); Mean Corpuscular HGB Conc 34 g/dl (31-36); Mean Corpuscular Hemoglobin 29 pg (27-31); Mean Corpuscular Volume 85 fL (80-97); Mean Platelet Volume 8 um3 (7.4-10.4); Nucleated Red Blood Cells % 0.1; Platelet Count 313 10^3/ul (150-450); Red Blood Count 3.85 10^6/ul (4.0-5.4); Red Cell Distribution Width 14 % (10.5-15); White Blood Count 10.6 10^3/ul (3.5-10.8)
[2017-08-26 05:55] LABS: EGFR Non-African American 99.9 (>60)
[2017-08-26] MEDS ORDERED: Potassium Chlor TAB* 20 MEQ TAB.ER PO SCH (09:45)
--- NOTE | 2017-08-26 09:48 | PN ---
Subjective Date of Service: 08/26/17 Interval History: No c/o. No major behavior problems reported by the edging machine feeder. Objective Active Medications: Acetaminophen (Tylenol Tab*) 650 mg PO Q6H PRN PRN Reason: FEVER/PAIN Last Admin: 08/25/17 20:24 Dose: 650 mg Haloperidol Lactate (Haldol Inj Iv/Im*) 0.5 mg IM Q6H PRN PRN Reason: AGITATION Last Admin: 08/23/17 19:35 Dose: 0.5 mg Polyethylene Glycol/Electrolytes (Miralax*) 17 gm PO BEDTIME PRN PRN Reason: CONSTIPATION Potassium Chloride (Klor Con Er Tab*) 20 meq PO BID JOSE M Quetiapine Fumarate (Seroquel Tab*) 12.5 mg PO BEDTIME JOSE M Tramadol HCl (Ultram*) 50 mg PO Q6H PRN PRN Reason: PAIN Last Admin: 08/25/17 22:50 Dose: 50 mg Vital Signs - 8 hr 08/26/17 08/26/17 07:30 08:19 Temperature 98.5 F Pulse Rate 69 Respiratory 16 16 Rate Blood Pressure 107/46 (mmHg) O2 Sat by Pulse 98 Oximetry Oxygen Devices in Use Now: None Appearance: Alert, partly up in bed. In good spirits but passive. Looks comfortable. Eyes: No Scleral Icterus Extremities: No Edema, No Clubbing, Cyanosis Skin: No Rash or Ulcers, No Nodules or Sclerosis Neurological: NL Sensation - LIAO. Fair verbal skills. No tremor. Disoriented. Result Diagrams: 08/26/17 04:44 08/26/17 04:44 Additional Lab and Data: Lab Results 08/23/17 08/23/17 08/23/17 Range/Units 11:35 11:35 11:35 WBC 15.0 H (3.5-10.8) 10^3/ul RBC 4.55 (4.0-5.4) 10^6/ul Hgb 13.1 (12.0-16.0) g/dl Hct 39 (35-47) % MCV 85 (80-97) fL MCH 29 (27-31) pg MCHC 34 (31-36) g/dl RDW 15 (10.5-15) % Plt Count 341 (150-450) 10^3/ul MPV 8 (7.4-10.4) um3 Neut % (Auto) 91.0 H (38-83) % Lymph % (Auto) 3.6 L (25-47) % [place] % (Auto) 4.9 (1-9) % Eos % (Auto) 0 (0-6) % Baso % (Auto) 0.5 (0-2) % Absolute Neuts (auto) 13.7 H (1.5-7.7) 10^3/ul Absolute Lymphs (auto) 0.5 L (1.0-4.8) 10^3/ul Absolute Monos (auto) 0.7 (0-0.8) 10^3/ul Absolute Eos (auto) 0 (0-0.6) 10^3/ul Absolute Basos (auto) 0.1 (0-0.2) 10^3/ul Absolute Nucleated RBC 0 10^3/ul Nucleated RBC % 0 APTT (26.0-36.3) seconds Sodium 129 L (133-145) mmol/L Potassium 3.1 L (3.5-5.0) mmol/L Chloride 92 L (101-111) mmol/L Carbon Dioxide 24 (22-32) mmol/L Anion Gap 13 H (2-11) mmol/L BUN 24 (6-24) mg/dL Creatinine 0.87 (0.51-0.95) mg/dL Est GFR ( Amer) 78.8 (>60) Est GFR (Non-Af Amer) 61.3 (>60) BUN/Creatinine Ratio 27.6 H (8-20) Glucose 91 (70-100) mg/dL Lactic Acid 0.9 (0.5-2.0) mmol/L Calcium 9.5 (8.6-10.3) mg/dL Magnesium 1.9 (1.9-2.7) mg/dL Total Bilirubin 2.70 H (0.2-1.0) mg/dL AST 32 (13-39) U/L ALT 12 (7-52) U/L Alkaline Phosphatase 59 (34-104) U/L Ammonia Total Creatine Kinase 631 H (10-223) U/L Troponin I 0.19 H* (<0.04) ng/mL C-Reactive Protein 147.52 H (< 5.00) mg/L B-Natriuretic Peptide ( - 100) pg/mL Total Protein 7.0 (6.4-8.9) g/dL Albumin 3.5 (3.2-5.2) g/dL Globulin 3.5 (2-4) g/dL Albumin/Globulin Ratio 1.0 (1-3) Lipase 11 (11.0-82.0) U/L Urine Color Urine Appearance Urine pH (5-9) Ur Specific [place] (1.010-1.030) Urine Protein (Negative) Urine Ketones (Negative) Urine Blood (Negative) Urine Nitrate (Negative) Urine Bilirubin (Negative) Urine Urobilinogen (Negative) Ur Leukocyte Esterase (Negative) Urine WBC (Auto) (Absent) Urine RBC (Auto) (Absent) Ur Squamous Epith Cells (Absent) Urine Bacteria (Absent) Hyaline Casts (Absent) Urine Glucose (Negative) 08/23/17 08/23/17 08/23/17 Range/Units 11:35 11:35 12:05 WBC (3.5-10.8) 10^3/ul RBC (4.0-5.4) 10^6/ul Hgb (12.0-16.0) g/dl Hct (35-47) % MCV (80-97) fL MCH (27-31) pg MCHC (31-36) g/dl RDW (10.5-15) % Plt Count (150-450) 10^3/ul MPV (7.4-10.4) um3 Neut % (Auto) (38-83) % Lymph % (Auto) (25-47) % [place] % (Auto) (1-9) % Eos % (Auto) (0-6) % Baso % (Auto) (0-2) % Absolute Neuts (auto) (1.5-7.7) 10^3/ul Absolute Lymphs (auto) (1.0-4.8) 10^3/ul Absolute Monos (auto) (0-0.8) 10^3/ul Absolute Eos (auto) (0-0.6) 10^3/ul Absolute Basos (auto) (0-0.2) 10^3/ul Absolute Nucleated RBC 10^3/ul Nucleated RBC % APTT 27.7 (26.0-36.3) seconds Sodium (133-145) mmol/L Potassium (3.5-5.0) mmol/L Chloride (101-111) mmol/L Carbon Dioxide (22-32) mmol/L Anion Gap (2-11) mmol/L BUN (6-24) mg/dL Creatinine (0.51-0.95) mg/dL Est GFR ( Amer) (>60) Est GFR (Non-Af Amer) (>60) BUN/Creatinine Ratio (8-20) Glucose (70-100) mg/dL Lactic Acid (0.5-2.0) mmol/L Calcium (8.6-10.3) mg/dL Magnesium (1.9-2.7) mg/dL Total Bilirubin (0.2-1.0) mg/dL AST (13-39) U/L ALT (7-52) U/L Alkaline Phosphatase (34-104) U/L Ammonia TNP Total Creatine Kinase (10-223) U/L Troponin I (<0.04) ng/mL C-Reactive Protein (< 5.00) mg/L B-Natriuretic Peptide 287 H ( - 100) pg/mL Total Protein (6.4-8.9) g/dL Albumin (3.2-5.2) g/dL Globulin (2-4) g/dL Albumin/Globulin Ratio (1-3) Lipase (11.0-82.0) U/L Urine Color Yellow Urine Appearance Cloudy Urine pH 6.0 (5-9) Ur Specific [place] 1.020 (1.010-1.030) Urine Protein 2+(100 mg/dl) H (Negative) Urine Ketones 2+ H (Negative) Urine Blood 1+ H (Negative) Urine Nitrate Negative (Negative) Urine Bilirubin Negative (Negative) Urine Urobilinogen Negative (Negative) Ur Leukocyte Esterase Negative (Negative) Urine WBC (Auto) Trace(0-5/hpf) (Absent) Urine RBC (Auto) 3+(>10/hpf) H (Absent) Ur Squamous Epith Cells Present H (Absent) Urine Bacteria Absent (Absent) Hyaline Casts Present H (Absent) Urine Glucose Negative (Negative) 08/23/17 Range/Units 12:29 WBC (3.5-10.8) 10^3/ul RBC (4.0-5.4) 10^6/ul Hgb (12.0-16.0) g/dl Hct (35-47) % MCV (80-97) fL MCH (27-31) pg MCHC (31-36) g/dl RDW (10.5-15) % Plt Count (150-450) 10^3/ul MPV (7.4-10.4) um3 Neut % (Auto) (38-83) % Lymph % (Auto) (25-47) % [place] % (Auto) (1-9) % Eos % (Auto) (0-6) % Baso % (Auto) (0-2) % Absolute Neuts (auto) (1.5-7.7) 10^3/ul Absolute Lymphs (auto) (1.0-4.8) 10^3/ul Absolute Monos (auto) (0-0.8) 10^3/ul Absolute Eos (auto) (0-0.6) 10^3/ul Absolute Basos (auto) (0-0.2) 10^3/ul Absolute Nucleated RBC 10^3/ul Nucleated RBC % APTT (26.0-36.3) seconds Sodium (133-145) mmol/L Potassium (3.5-5.0) mmol/L Chloride (101-111) mmol/L Carbon Dioxide (22-32) mmol/L Anion Gap (2-11) mmol/L BUN (6-24) mg/dL Creatinine (0.51-0.95) mg/dL Est GFR ( Amer) (>60) Est GFR (Non-Af Amer) (>60) BUN/Creatinine Ratio (8-20) Glucose (70-100) mg/dL Lactic Acid (0.5-2.0) mmol/L Calcium (8.6-10.3) mg/dL Magnesium (1.9-2.7) mg/dL Total Bilirubin (0.2-1.0) mg/dL AST (13-39) U/L ALT (7-52) U/L Alkaline Phosphatase (34-104) U/L Ammonia 38 Total Creatine Kinase (10-223) U/L Troponin I (<0.04) ng/mL C-Reactive Protein (< 5.00) mg/L B-Natriuretic Peptide ( - 100) pg/mL Total Protein (6.4-8.9) g/dL Albumin (3.2-5.2) g/dL Globulin (2-4) g/dL Albumin/Globulin Ratio (1-3) Lipase (11.0-82.0) U/L Urine Color Urine Appearance Urine pH (5-9) Ur Specific [place] (1.010-1.030) Urine Protein (Negative) Urine Ketones (Negative) Urine Blood (Negative) Urine Nitrate (Negative) Urine Bilirubin (Negative) Urine Urobilinogen (Negative) Ur Leukocyte Esterase (Negative) Urine WBC (Auto) (Absent) Urine RBC (Auto) (Absent) Ur Squamous Epith Cells (Absent) Urine Bacteria (Absent) Hyaline Casts (Absent) Urine Glucose (Negative) Microbiology and Other Data: Microbiology 08/24/17 11:30 Urine Culture - Final Urine No Growth (<1,000 CFU/mL) Assess/Plan/Problems-Billing Assessment: - Patient Problems (1) Dementia Current Visit: Yes Status: Acute Code(s): F03.90 - UNSPECIFIED DEMENTIA WITHOUT BEHAVIORAL DISTURBANCE SNOMED Code(s): 45289357 Comment: 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 Received quetiapine 25 mg hs 2/, will decrease to 12. 5 mg. OT/ PT eval. MRI brain to evaluate for possible CVA or other cause of somewhat abrupt increase in confusion. (2) Urinary retention Current Visit: Yes Status: Acute Code(s): R33.9 - RETENTION OF URINE, UNSPECIFIED SNOMED Code(s): 085278982 Comment: Patient had straight cath in ED with 600 ml drained, then Yung inserted. Urine C&S no growth. She did not get an antibiotic. (3) Constipation Current Visit: Yes Status: Acute Code(s): K59.00 - CONSTIPATION, UNSPECIFIED SNOMED Code(s): 31786540 Comment: BM after 300 ml magnesium citrate. PEG 17 gm q hs.
--- NOTE | 2017-08-26 15:50 | PN ---
Progress Note - Progress Note Date of Service: 08/26/17 Note: I spoke to the daughter in person about end of life.care. The daughter understands that the best treatment for the patient is comfort measures only. She will need some time to adjust to this news but does accept Hospice referral. The nurse will addres DNR with the daughter.
--- NOTE | 2017-08-26 16:36 | RAD ---
HISTORY: Change in mental status, hallucinations COMPARISONS: None TECHNIQUE: The following sequences were obtained of the head: Sagittal T1-weighted images, axial T2-weighted images, axial FLAIR images, axial susceptibility weighted images, axial T1-weighted images. Additionally, axial diffusion-weighted images were obtained with calculated apparent diffusion coefficients. FINDINGS: HEMORRHAGE/INFARCT: There is no hemorrhage or acute infarct. MASSES/SHIFT: There is no mass or shift. EXTRA-AXIAL SPACES/MENINGES: There are no extra-axial fluid collections. SULCI AND VENTRICLES: There is diffuse and proportional enlargement of the sulci and ventricles. CEREBRUM: There are multiple scattered small foci of elevated T2/FLAIR signal within the periventricular and subcortical white matter. BRAINSTEM: There are no focal parenchymal abnormalities. CEREBELLUM: There are no focal parenchymal abnormalities. The cerebellar tonsils are normal in size and position. SELLA: The sella is normal. PINEAL: The pineal region is clear. CP ANGLE/TEMPORAL BONES: The labyrinthine structures are grossly normal. VESSELS: Normal flow-voids are noted within the visualized vertebral vasculature. DIFFUSION ABNORMALITIES: There are no diffusion abnormalities. PARANASAL SINUSES/MASTOIDS: The paranasal sinuses are clear. ORBITS: The orbits are unremarkable. BONES AND SOFT TISSUE: No bone or soft tissue abnormalities are noted. OTHER: None IMPRESSION: 1. DIFFUSE INVOLUTIONAL CHANGE. 2. THERE ARE MULTIPLE FOCI OF ELEVATED T2/FLAIR SIGNAL WITHIN THE PERIVENTRICULAR AND SUBCORTICAL WHITE MATTER. WHILE THESE FINDINGS ARE NONSPECIFIC, THEY CAN BE SEEN IN ASSOCIATION WITH MIGRAINE HEADACHE, THE SEQUELA OF PREVIOUS INFECTION OR INFLAMMATION, AND CHRONIC SMALL VESSEL ISCHEMIA. DEMYELINATING DISEASE IS ALSO WITHIN THE DIFFERENTIAL, BUT IS CONSIDERED LESS LIKELY IN THE ABSENCE OF THE APPROPRIATE CLINICAL PRESENTATION.
[2017-08-26] MEDS: QUEtiapine TAB* 25 MG PO SCH (20:10)
[2017-08-27] MEDS: Potassium Chlor TAB* 20 MEQ TAB.ER PO SCH (09:35)
[2017-08-27] MEDS: Acetaminophen TAB* 325 MG PO PRN (09:45)
--- NOTE | 2017-08-27 18:26 | PN ---
Subjective Date of Service: 08/27/17 Interval History: Feels "okay" today but doesn't know what is wrong with her. Cannot localize pain. Family History: Unchanged from Admission Social History: Unchanged from Admission Past Medical History: Unchanged from Admission Objective Active Medications: Acetaminophen (Tylenol Tab*) 650 mg PO Q6H PRN PRN Reason: FEVER/PAIN Last Admin: 08/27/17 09:45 Dose: 650 mg Haloperidol Lactate (Haldol Inj Iv/Im*) 0.5 mg IM Q6H PRN PRN Reason: AGITATION Last Admin: 08/23/17 19:35 Dose: 0.5 mg Polyethylene Glycol/Electrolytes (Miralax*) 17 gm PO BEDTIME PRN PRN Reason: CONSTIPATION Potassium Chloride (Klor Con Er Tab*) 20 meq PO DAILY JOSE M Last Admin: 08/27/17 09:35 Dose: 20 meq Quetiapine Fumarate (Seroquel Tab*) 12.5 mg PO BEDTIME JOSE M Last Admin: 08/26/17 20:10 Dose: 12.5 mg Tramadol HCl (Ultram*) 50 mg PO Q6H PRN PRN Reason: PAIN Last Admin: 08/25/17 22:50 Dose: 50 mg Vital Signs - 8 hr 08/27/17 15:27 Temperature 97.8 F Pulse Rate 77 Respiratory 18 Rate Blood Pressure 123/53 (mmHg) O2 Sat by Pulse 98 Oximetry Oxygen Devices in Use Now: None Appearance: alert, oriented x 2 Eyes: No Scleral Icterus Ears/Nose/Mouth/Throat: NL Teeth, Lips, Gums Neck: NL Appearance and Movements; NL JVP Respiratory: Symmetrical Chest Expansion and Respiratory Effort, Clear to Auscultation Cardiovascular: NL Sounds; No Murmurs; No JVD, RRR Abdominal: - - mildly tender to palpation diffusely Lymphatic: No Cervical Adenopathy Extremities: No Edema Skin: No Rash or Ulcers Neurological: - - forgetful Result Diagrams: 08/26/17 04:44 08/26/17 04:44 Additional Lab and Data: Lab Results 08/23/17 08/23/17 08/23/17 Range/Units 11:35 11:35 11:35 WBC 15.0 H (3.5-10.8) 10^3/ul RBC 4.55 (4.0-5.4) 10^6/ul Hgb 13.1 (12.0-16.0) g/dl Hct 39 (35-47) % MCV 85 (80-97) fL MCH 29 (27-31) pg MCHC 34 (31-36) g/dl RDW 15 (10.5-15) % Plt Count 341 (150-450) 10^3/ul MPV 8 (7.4-10.4) um3 Neut % (Auto) 91.0 H (38-83) % Lymph % (Auto) 3.6 L (25-47) % [place] % (Auto) 4.9 (1-9) % Eos % (Auto) 0 (0-6) % Baso % (Auto) 0.5 (0-2) % Absolute Neuts (auto) 13.7 H (1.5-7.7) 10^3/ul Absolute Lymphs (auto) 0.5 L (1.0-4.8) 10^3/ul Absolute Monos (auto) 0.7 (0-0.8) 10^3/ul Absolute Eos (auto) 0 (0-0.6) 10^3/ul Absolute Basos (auto) 0.1 (0-0.2) 10^3/ul Absolute Nucleated RBC 0 10^3/ul Nucleated RBC % 0 APTT (26.0-36.3) seconds Sodium 129 L (133-145) mmol/L Potassium 3.1 L (3.5-5.0) mmol/L Chloride 92 L (101-111) mmol/L Carbon Dioxide 24 (22-32) mmol/L Anion Gap 13 H (2-11) mmol/L BUN 24 (6-24) mg/dL Creatinine 0.87 (0.51-0.95) mg/dL Est GFR ( Amer) 78.8 (>60) Est GFR (Non-Af Amer) 61.3 (>60) BUN/Creatinine Ratio 27.6 H (8-20) Glucose 91 (70-100) mg/dL Lactic Acid 0.9 (0.5-2.0) mmol/L Calcium 9.5 (8.6-10.3) mg/dL Magnesium 1.9 (1.9-2.7) mg/dL Total Bilirubin 2.70 H (0.2-1.0) mg/dL AST 32 (13-39) U/L ALT 12 (7-52) U/L Alkaline Phosphatase 59 (34-104) U/L Ammonia Total Creatine Kinase 631 H (10-223) U/L Troponin I 0.19 H* (<0.04) ng/mL C-Reactive Protein 147.52 H (< 5.00) mg/L B-Natriuretic Peptide ( - 100) pg/mL Total Protein 7.0 (6.4-8.9) g/dL Albumin 3.5 (3.2-5.2) g/dL Globulin 3.5 (2-4) g/dL Albumin/Globulin Ratio 1.0 (1-3) Lipase 11 (11.0-82.0) U/L Urine Color Urine Appearance Urine pH (5-9) Ur Specific [place] (1.010-1.030) Urine Protein (Negative) Urine Ketones (Negative) Urine Blood (Negative) Urine Nitrate (Negative) Urine Bilirubin (Negative) Urine Urobilinogen (Negative) Ur Leukocyte Esterase (Negative) Urine WBC (Auto) (Absent) Urine RBC (Auto) (Absent) Ur Squamous Epith Cells (Absent) Urine Bacteria (Absent) Hyaline Casts (Absent) Urine Glucose (Negative) 08/23/17 08/23/17 08/23/17 Range/Units 11:35 11:35 12:05 WBC (3.5-10.8) 10^3/ul RBC (4.0-5.4) 10^6/ul Hgb (12.0-16.0) g/dl Hct (35-47) % MCV (80-97) fL MCH (27-31) pg MCHC (31-36) g/dl RDW (10.5-15) % Plt Count (150-450) 10^3/ul MPV (7.4-10.4) um3 Neut % (Auto) (38-83) % Lymph % (Auto) (25-47) % [place] % (Auto) (1-9) % Eos % (Auto) (0-6) % Baso % (Auto) (0-2) % Absolute Neuts (auto) (1.5-7.7) 10^3/ul Absolute Lymphs (auto) (1.0-4.8) 10^3/ul Absolute Monos (auto) (0-0.8) 10^3/ul Absolute Eos (auto) (0-0.6) 10^3/ul Absolute Basos (auto) (0-0.2) 10^3/ul Absolute Nucleated RBC 10^3/ul Nucleated RBC % APTT 27.7 (26.0-36.3) seconds Sodium (133-145) mmol/L Potassium (3.5-5.0) mmol/L Chloride (101-111) mmol/L Carbon Dioxide (22-32) mmol/L Anion Gap (2-11) mmol/L BUN (6-24) mg/dL Creatinine (0.51-0.95) mg/dL Est GFR ( Amer) (>60) Est GFR (Non-Af Amer) (>60) BUN/Creatinine Ratio (8-20) Glucose (70-100) mg/dL Lactic Acid (0.5-2.0) mmol/L Calcium (8.6-10.3) mg/dL Magnesium (1.9-2.7) mg/dL Total Bilirubin (0.2-1.0) mg/dL AST (13-39) U/L ALT (7-52) U/L Alkaline Phosphatase (34-104) U/L Ammonia TNP Total Creatine Kinase (10-223) U/L Troponin I (<0.04) ng/mL C-Reactive Protein (< 5.00) mg/L B-Natriuretic Peptide 287 H ( - 100) pg/mL Total Protein (6.4-8.9) g/dL Albumin (3.2-5.2) g/dL Globulin (2-4) g/dL Albumin/Globulin Ratio (1-3) Lipase (11.0-82.0) U/L Urine Color Yellow Urine Appearance Cloudy Urine pH 6.0 (5-9) Ur Specific [place] 1.020 (1.010-1.030) Urine Protein 2+(100 mg/dl) H (Negative) Urine Ketones 2+ H (Negative) Urine Blood 1+ H (Negative) Urine Nitrate Negative (Negative) Urine Bilirubin Negative (Negative) Urine Urobilinogen Negative (Negative) Ur Leukocyte Esterase Negative (Negative) Urine WBC (Auto) Trace(0-5/hpf) (Absent) Urine RBC (Auto) 3+(>10/hpf) H (Absent) Ur Squamous Epith Cells Present H (Absent) Urine Bacteria Absent (Absent) Hyaline Casts Present H (Absent) Urine Glucose Negative (Negative) 08/23/17 Range/Units 12:29 WBC (3.5-10.8) 10^3/ul RBC (4.0-5.4) 10^6/ul Hgb (12.0-16.0) g/dl Hct (35-47) % MCV (80-97) fL MCH (27-31) pg MCHC (31-36) g/dl RDW (10.5-15) % Plt Count (150-450) 10^3/ul MPV (7.4-10.4) um3 Neut % (Auto) (38-83) % Lymph % (Auto) (25-47) % [place] % (Auto) (1-9) % Eos % (Auto) (0-6) % Baso % (Auto) (0-2) % Absolute Neuts (auto) (1.5-7.7) 10^3/ul Absolute Lymphs (auto) (1.0-4.8) 10^3/ul Absolute Monos (auto) (0-0.8) 10^3/ul Absolute Eos (auto) (0-0.6) 10^3/ul Absolute Basos (auto) (0-0.2) 10^3/ul Absolute Nucleated RBC 10^3/ul Nucleated RBC % APTT (26.0-36.3) seconds Sodium (133-145) mmol/L Potassium (3.5-5.0) mmol/L Chloride (101-111) mmol/L Carbon Dioxide (22-32) mmol/L Anion Gap (2-11) mmol/L BUN (6-24) mg/dL Creatinine (0.51-0.95) mg/dL Est GFR ( Amer) (>60) Est GFR (Non-Af Amer) (>60) BUN/Creatinine Ratio (8-20) Glucose (70-100) mg/dL Lactic Acid (0.5-2.0) mmol/L Calcium (8.6-10.3) mg/dL Magnesium (1.9-2.7) mg/dL Total Bilirubin (0.2-1.0) mg/dL AST (13-39) U/L ALT (7-52) U/L Alkaline Phosphatase (34-104) U/L Ammonia 38 Total Creatine Kinase (10-223) U/L Troponin I (<0.04) ng/mL C-Reactive Protein (< 5.00) mg/L B-Natriuretic Peptide ( - 100) pg/mL Total Protein (6.4-8.9) g/dL Albumin (3.2-5.2) g/dL Globulin (2-4) g/dL Albumin/Globulin Ratio (1-3) Lipase (11.0-82.0) U/L Urine Color Urine Appearance Urine pH (5-9) Ur Specific [place] (1.010-1.030) Urine Protein (Negative) Urine Ketones (Negative) Urine Blood (Negative) Urine Nitrate (Negative) Urine Bilirubin (Negative) Urine Urobilinogen (Negative) Ur Leukocyte Esterase (Negative) Urine WBC (Auto) (Absent) Urine RBC (Auto) (Absent) Ur Squamous Epith Cells (Absent) Urine Bacteria (Absent) Hyaline Casts (Absent) Urine Glucose (Negative) Microbiology and Other Data: Microbiology 08/24/17 11:30 Urine Culture - Final Urine No Growth (<1,000 CFU/mL) Assess/Plan/Problems-Billing Assessment: - Patient Problems (1) Vascular dementia Current Visit: Yes Status: Acute Code(s): F01.50 - VASCULAR DEMENTIA WITHOUT BEHAVIORAL DISTURBANCE SNOMED Code(s): 066135284 Comment: MRI supports findings of likely vascular dementia, and her history of a sudden decline recently fits the picture of a "stepwise" decline. Still, we will rule out a infectious or metabolic etiology, as her daughter is not yet satisfied with a "comfort care" approach until we do so. (2) Abdominal pain Current Visit: Yes Status: Acute Code(s): R10.9 - UNSPECIFIED ABDOMINAL PAIN SNOMED Code(s): 63991189 Comment: Check lactate, stool studies (has been drinking water from the cistern with a green film on it). (3) Urinary retention Current Visit: Yes Status: Acute Code(s): R33.9 - RETENTION OF URINE, UNSPECIFIED SNOMED Code(s): 125180804 Comment: Patient had straight cath in ED with 600 ml drained, then Yung inserted. Urine C&S no growth. She did not get an antibiotic.
[2017-08-27] MEDS: QUEtiapine TAB* 25 MG PO SCH (20:19)
--- NOTE | 2017-08-27 21:19 | CONSULT ---
Palliative / Hospice Consult Ordering Provider: Taz Yoder - Subjective Code Status: DNR Advance Directives Location: In Chart [facility] Part A Completed: Yes Date: 08/27/17 [facility] Part E Completed:: Yes Date: 08/27/17 HCP Completed: Yes - daughter Nola Ambrose - History or Present Illness History or Present Illness: This 87 year old woman was brought to the ER 08/23/16 with AMS including hallucinations, falling and abdominal pain, and was found to have urinary retention relieved with Yung cath, as well as a suspected partial or old small bowel obstruction. The bladder and bowel problem have resolved, but the patient' s mental status has not significantly improved, and she is taking almost nothing p.o.. Palliative consult was requested to consider hospice enrolment. 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 She has been living independently in her home, with some meals prepared by her daughter, until a week ago. She has no PMH other than HTN, for which she was started on antihpertensive medication 5 years ago, but these were discontinued as her daughter thought they might be causing problems with her memory and mentation. It was about that time that the patient began to have difficulty with word finding, and and she has also been frustrated by some physical limitations in trying to maintain her usual active lifestyle. Her daughter does report a istory of migrane headaches. THe patient' s brain MRI, done yesterday, shows involutional change as well as multiple foci of T2/flair signal compatible with migraines, infection, inflammation, demyelinating disease, ischemic events, etc. The patient has an albumin of 3.1, and a weight of 97 lb. at 5'0", for a BMI of 18. She has been losing weight slowly over the past few years, according to her daughter, but this has not been monitored, as Mrs. Vidal was a patient of Dr. Biggs, and apparently his records have not been delivered to her new PCP, Dr. Snow. Lab Values: Laboratory Last Values WBC 10.6 10^3/ul (3.5-10.8) 08/26/17 04:44 RBC 3.85 10^6/ul (4.0-5.4) L 08/26/17 04:44 Hgb 11.0 g/dl (12.0-16.0) L 08/26/17 04:44 Hct 33 % (35-47) L 08/26/17 04:44 MCV 85 fL (80-97) 08/26/17 04:44 MCH 29 pg (27-31) 08/26/17 04:44 MCHC 34 g/dl (31-36) 08/26/17 04:44 RDW 14 % (10.5-15) 08/26/17 04:44 Plt Count 313 10^3/ul (150-450) 08/26/17 04:44 MPV 8 um3 (7.4-10.4) 08/26/17 04:44 Neut % (Auto) 78.7 % (38-83) 08/26/17 04:44 Lymph % (Auto) 9.4 % (25-47) L 08/26/17 04:44 [place] % (Auto) 9.5 % (1-9) H 08/26/17 04:44 Eos % (Auto) 0.9 % (0-6) 08/26/17 04:44 Baso % (Auto) 1.5 % (0-2) 08/26/17 04:44 Absolute Neuts (auto) 8.3 10^3/ul (1.5-7.7) H 08/26/17 04:44 Absolute Lymphs (auto) 1.0 10^3/ul (1.0-4.8) 08/26/17 04:44 Absolute Monos (auto) 1.0 10^3/ul (0-0.8) H 08/26/17 04:44 Absolute Eos (auto) 0.1 10^3/ul (0-0.6) 08/26/17 04:44 Absolute Basos (auto) 0.2 10^3/ul (0-0.2) 08/26/17 04:44 Absolute Nucleated RBC 0 10^3/ul 08/26/17 04:44 Nucleated RBC % 0.1 08/26/17 04:44 APTT 27.7 seconds (26.0-36.3) 08/23/17 11:35 Sodium 139 mmol/L (133-145) 08/26/17 04:44 Potassium 3.1 mmol/L (3.5-5.0) L 08/26/17 04:44 Chloride 102 mmol/L (101-111) 08/26/17 04:44 Carbon Dioxide 33 mmol/L (22-32) H 08/26/17 04:44 Anion Gap 4 mmol/L (2-11) 08/26/17 04:44 BUN 17 mg/dL (6-24) 08/26/17 04:44 Creatinine 0.57 mg/dL (0.51-0.95) 08/26/17 04:44 Est GFR ( Amer) 128.4 (>60) 08/26/17 04:44 Est GFR (Non-Af Amer) 99.9 (>60) 08/26/17 04:44 BUN/Creatinine Ratio 29.8 (8-20) H 08/26/17 04:44 Glucose 111 mg/dL (70-100) H 08/26/17 04:44 Lactic Acid 0.9 mmol/L (0.5-2.0) 08/23/17 11:35 Calcium 8.5 mg/dL (8.6-10.3) L 08/26/17 04:44 Magnesium 1.9 mg/dL (1.9-2.7) 08/23/17 11:35 Total Bilirubin 2.00 mg/dL (0.2-1.0) H 08/24/17 06:27 AST 31 U/L (13-39) 08/24/17 06:27 ALT 12 U/L (7-52) 08/24/17 06:27 Alkaline Phosphatase 55 U/L (34-104) 08/24/17 06:27 Ammonia 38 mol/L (16-53) 08/23/17 12:29 Total Creatine Kinase 631 U/L (10-223) H 08/23/17 11:35 Troponin I 0.12 ng/mL (<0.04) H* 08/23/17 14:43 C-Reactive Protein 147.52 mg/L (< 5.00) H 08/23/17 11:35 B-Natriuretic Peptide 287 pg/mL (-100) H 08/23/17 11:35 Total Protein 6.0 g/dL (6.4-8.9) L 08/24/17 06:27 Albumin 3.1 g/dL (3.2-5.2) L 08/24/17 06:27 Globulin 2.9 g/dL (2-4) 08/24/17 06:27 Albumin/Globulin Ratio 1.1 (1-3) 08/24/17 06:27 Lipase 11 U/L (11.0-82.0) 08/23/17 11:35 Urine Color Yellow 08/23/17 12:05 Urine Appearance Cloudy 08/23/17 12:05 Urine pH 6.0 (5-9) 08/23/17 12:05 Ur Specific [place] 1.020 (1.010-1.030) 08/23/17 12:05 Urine Protein 2+(100 mg/dl) (Negative) H 08/23/17 12:05 Urine Ketones 2+ (Negative) H 08/23/17 12:05 Urine Blood 1+ (Negative) H 08/23/17 12:05 Urine Nitrate Negative (Negative) 08/23/17 12:05 Urine Bilirubin Negative (Negative) 08/23/17 12:05 Urine Urobilinogen Negative (Negative) 08/23/17 12:05 Ur Leukocyte Esterase Negative (Negative) 08/23/17 12:05 Urine WBC (Auto) Trace(0-5/hpf) (Absent) 08/23/17 12:05 Urine RBC (Auto) 3+(>10/hpf) (Absent) H 08/23/17 12:05 Ur Squamous Epith Cells Present (Absent) H 08/23/17 12:05 Urine Bacteria Absent (Absent) 08/23/17 12:05 Hyaline Casts Present (Absent) H 08/23/17 12:05 Urine Glucose Negative (Negative) 08/23/17 12:05 - Objective Active Medications: Acetaminophen (Tylenol Tab*) 650 mg PO Q6H PRN PRN Reason: FEVER/PAIN Last Admin: 08/27/17 09:45 Dose: 650 mg Haloperidol Lactate (Haldol Inj Iv/Im*) 0.5 mg IM Q6H PRN PRN Reason: AGITATION Last Admin: 08/23/17 19:35 Dose: 0.5 mg Polyethylene Glycol/Electrolytes (Miralax*) 17 gm PO BEDTIME PRN PRN Reason: CONSTIPATION Potassium Chloride (Klor Con Er Tab*) 20 meq PO DAILY JOSE M Last Admin: 08/27/17 09:35 Dose: 20 meq Quetiapine Fumarate (Seroquel Tab*) 12.5 mg PO BEDTIME JOSE M Last Admin: 08/27/17 20:19 Dose: 12.5 mg Tramadol HCl (Ultram*) 50 mg PO Q6H PRN PRN Reason: PAIN Last Admin: 08/25/17 22:50 Dose: 50 mg Vital Signs: Vital Signs: Temp Pulse Resp BP Pulse Ox 97.8 F 77 18 123/53 98 08/27/17 15:27 08/27/17 15:27 08/27/17 15:27 08/27/17 15:27 08/27/17 15:27 Patient Weight: Weight 97 lb Intake and Output: Intake & Output 08/25/17 08/26/17 08/27/17 08/28/17 06:59 06:59 06:59 06:59 Intake Total 1845 1220 337 657 Output Total 1075 350 200 200 Balance 770 870 137 457 Weight 97 lb Intake: IV Fluids 1015 Oral 830 1220 337 657 Output: Yung 1075 350 200 200 Other: Estimated Void Medium # Bowel Movements 0 2 Estimated Stool Amount Large ADLs: Meal Record Start: 08/23/17 14: 54 Freq: DAILY@0900,1400,1800 Status: Active Protocol: Document 08/23/17 21:52 [id number] (Rec: 08/23/17 21:53 [id number] TELE-C11) Document 08/24/17 09:00 [id number] (Rec: 08/24/17 18:35 [id number] TELE-C03) Document 08/24/17 14:00 [id number] (Rec: 08/24/17 18:35 [id number] TELE-C03) Document 08/24/17 18:00 [id number] (Rec: 08/24/17 23:07 [id number] TELE-C03) Document 08/25/17 09:00 [id number] (Rec: 08/25/17 10:19 [id number] TELE-C03) Document 08/25/17 14:00 [id number] (Rec: 08/25/17 17:07 [id number] TELE-C06) Document 08/25/17 18:00 [id number] (Rec: 08/25/17 20:17 [id number] TELE-C03) Document 08/26/17 09:00 [id number] (Rec: 08/26/17 12:51 [id number] TELE-C03) Document 08/26/17 12:52 [id number] (Rec: 08/26/17 12:52 [id number] TELE-C03) Document 08/26/17 18:00 [id number] (Rec: 08/26/17 18:19 [id number] TELE-C07) Document 08/27/17 09:00 [id number] (Rec: 08/27/17 12:11 [id number] TELE-C11) Document 08/27/17 13:22 [id number] (Rec: 08/27/17 13:22 [id number] TELE-C11) Document 08/27/17 18:00 [id number] (Rec: 08/27/17 18:57 [id number] TELE-C01) Intake and Output Start: 08/23/17 14: 54 Freq: DAILY@0600,1400,2200 Status: Active Protocol: Document 08/23/17 22:00 [id number] (Rec: 08/23/17 22:33 [id number] TELE-C11) Document 08/24/17 06:00 [id number] (Rec: 08/24/17 06:26 [id number] TELE-C32) Document 08/24/17 14:00 [id number] (Rec: 08/24/17 19:15 [id number] TELE-C03) Document 08/24/17 22:00 [id number] (Rec: 08/24/17 23:10 [id number] TELE-C03) Document 08/25/17 04:56 [id number] (Rec: 08/25/17 04:56 [id number] TELE-C35) Document 08/25/17 14:00 [id number] (Rec: 08/25/17 17:07 [id number] TELE-C06) Document 08/25/17 18:59 [id number] (Rec: 08/25/17 18:59 [id number] TELE-M04) Document 08/25/17 22:00 [id number] (Rec: 08/25/17 22:27 [id number] TELE-C03) Document 08/26/17 06:00 [id number] (Rec: 08/26/17 06:41 [id number] TELE-C08) Document 08/26/17 13:48 [id number] (Rec: 08/26/17 13:51 [id number] TELE-C11) Document 08/26/17 14:17 [id number] (Rec: 08/26/17 14:17 [id number] TELE-C10) Document 08/26/17 22:00 [id number] (Rec: 08/26/17 22:14 [id number] TELE-C01) Document 08/27/17 05:26 [id number] (Rec: 08/27/17 05:29 [id number] TELE-C32) Document 08/27/17 14:00 [id number] (Rec: 08/27/17 14:31 [id number] TELE-C11) General Impression: Nonverbal, calm elderly woman lying quietly in bed. Head: Symmetrical Eyes: No Scleral Icterus Ears/Nose/Mouth/Throat: NL Teeth, Lips, Gums Neck: NL Appearance and Movements; NL JVP Cardiovascular: NL Sounds; No Murmurs; No JVD, RRR Respiratory: Symmetrical Chest Expansion and Respiratory Effort Abdominal: No Hepatosplenomegaly Extremities: No Edema Neurological: - - minimally interactive, disoriented - Assessment Assessment: This elderly woman has had a slow weight loss over the last 2 to 3 years, but still has an albumin of 3.1, and now has been hospitlaized for UTI and abdominal pain of uncertain etiology, and has had an associated cognitive impairment that appears very much like Alzheimer's dementia. She is not taking much p.o., but probably enough to maintain herself for at least several months. The patient is in fact taking fluids, and I saw her drink water with a straw without difficulty, and she is eating about 1/3 of her recommended daily caloric intake. She will probably decline unless this improves quite a bit. 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 She will visit LTC facilities to make this decision. At the time I spoke with her, she was uncertain about whether she would want hospice services for her mother, because she is hoping she will continue to improve and reattain her baseline status of mental function. If she does not, she may be eligible for hospice services on the basis of her weight loss and debility. I spent some time going over the [facility] form with the patient's daughter and recording her wishes. - Plan Consult Plan (MU): Palliative - Time On Unit Date of Evaluation: 08/27/17 Hospice Consult Time in: 14:15 Hospice Consult Time Out: 15:15 Hospice Consult Time Total: 60 > 50% of Time Spend In Counseling or Coordinating Care: Yes
[2017-08-28 07:30] LABS: Hematocrit 36 % (35-47); Hemoglobin 12.1 g/dl (12.0-16.0); Mean Corpuscular HGB Conc 34 g/dl (31-36); Mean Corpuscular Hemoglobin 29 pg (27-31); Mean Corpuscular Volume 85 fL (80-97); Mean Platelet Volume 8 um3 (7.4-10.4); Platelet Count 341 10^3/ul (150-450); Red Blood Count 4.16 10^6/ul (4.0-5.4); Red Cell Distribution Width 14 % (10.5-15); White Blood Count 13.3 10^3/ul (3.5-10.8)
[2017-08-28 07:36] LABS: EGFR Non-African American 113.5 (>60)
[2017-08-28 08:59] LABS: ABS Basophils 0.1 10^3/ul (0-0.2); ABS Eosinophils 0.1 10^3/ul (0-0.6); ABS Lymphocytes 0.9 10^3/ul (1.0-4.8); ABS Monocytes 0.9 10^3/ul (0-0.8); ABS Neutrophils 11.3 10^3/ul (1.5-7.7); ABS Nucleated RBC 0 10^3/ul; Eosinophil % 0.5 % (0-6); Nucleated Red Blood Cells % 0
[2017-08-28] MEDS: Potassium Chlor TAB* 20 MEQ TAB.ER PO SCH (10:41)
[2017-08-28] MEDS: Clotrimazole TROCHE* 10 MG TROCHE PO SCH ×4 (10:50→21:54)
--- NOTE | 2017-08-28 15:00 | PN ---
Subjective Date of Service: 08/28/17 Interval History: no overnight events, no complaints. she is not sure where she is. Family History: Unchanged from Admission Social History: Unchanged from Admission Past Medical History: Unchanged from Admission Objective Active Medications: Acetaminophen (Tylenol Tab*) 650 mg PO Q6H PRN PRN Reason: FEVER/PAIN Last Admin: 08/27/17 09:45 Dose: 650 mg Clotrimazole (Mycelex Gabby*) 10 mg PO FIVE TIMES DAILY [facility] Last Admin: 08/28/17 13:57 Dose: 10 mg Haloperidol Lactate (Haldol Inj Iv/Im*) 0.5 mg IM Q6H PRN PRN Reason: AGITATION Last Admin: 08/23/17 19:35 Dose: 0.5 mg Polyethylene Glycol/Electrolytes (Miralax*) 17 gm PO BEDTIME PRN PRN Reason: CONSTIPATION Potassium Chloride (Klor Con Er Tab*) 20 meq PO DAILY [facility] Last Admin: 08/28/17 10:41 Dose: 20 meq Quetiapine Fumarate (Seroquel Tab*) 12.5 mg PO BEDTIME JOSE M Last Admin: 08/27/17 20:19 Dose: 12.5 mg Tramadol HCl (Ultram*) 50 mg PO Q6H PRN PRN Reason: PAIN Last Admin: 08/25/17 22:50 Dose: 50 mg Vital Signs - 8 hr 08/28/17 08/28/17 07:46 11:16 Temperature 98.6 F Pulse Rate 85 Respiratory 18 18 Rate Blood Pressure 140/56 (mmHg) O2 Sat by Pulse 96 Oximetry Oxygen Devices in Use Now: None Appearance: elderly, no distress Eyes: No Scleral Icterus Ears/Nose/Mouth/Throat: NL Teeth, Lips, Gums Neck: NL Appearance and Movements; NL JVP Respiratory: Symmetrical Chest Expansion and Respiratory Effort Cardiovascular: NL Sounds; No Murmurs; No JVD, RRR Abdominal: - - grimaces when I palpate her abdomen, worst in the LLQ with voluntary guarding Lymphatic: No Cervical Adenopathy Extremities: No Edema Skin: No Rash or Ulcers Neurological: - - poor short and custodial memory, follows commands and answers simple questions Result Diagrams: 08/28/17 07:01 08/28/17 07:01 Additional Lab and Data: Lab Results 08/23/17 08/23/17 08/23/17 Range/Units 11:35 11:35 11:35 WBC 15.0 H (3.5-10.8) 10^3/ul RBC 4.55 (4.0-5.4) 10^6/ul Hgb 13.1 (12.0-16.0) g/dl Hct 39 (35-47) % MCV 85 (80-97) fL MCH 29 (27-31) pg MCHC 34 (31-36) g/dl RDW 15 (10.5-15) % Plt Count 341 (150-450) 10^3/ul MPV 8 (7.4-10.4) um3 Neut % (Auto) 91.0 H (38-83) % Lymph % (Auto) 3.6 L (25-47) % [place] % (Auto) 4.9 (1-9) % Eos % (Auto) 0 (0-6) % Baso % (Auto) 0.5 (0-2) % Absolute Neuts (auto) 13.7 H (1.5-7.7) 10^3/ul Absolute Lymphs (auto) 0.5 L (1.0-4.8) 10^3/ul Absolute Monos (auto) 0.7 (0-0.8) 10^3/ul Absolute Eos (auto) 0 (0-0.6) 10^3/ul Absolute Basos (auto) 0.1 (0-0.2) 10^3/ul Absolute Nucleated RBC 0 10^3/ul Nucleated RBC % 0 APTT (26.0-36.3) seconds Sodium 129 L (133-145) mmol/L Potassium 3.1 L (3.5-5.0) mmol/L Chloride 92 L (101-111) mmol/L Carbon Dioxide 24 (22-32) mmol/L Anion Gap 13 H (2-11) mmol/L BUN 24 (6-24) mg/dL Creatinine 0.87 (0.51-0.95) mg/dL Est GFR ( Amer) 78.8 (>60) Est GFR (Non-Af Amer) 61.3 (>60) BUN/Creatinine Ratio 27.6 H (8-20) Glucose 91 (70-100) mg/dL Lactic Acid 0.9 (0.5-2.0) mmol/L Calcium 9.5 (8.6-10.3) mg/dL Magnesium 1.9 (1.9-2.7) mg/dL Total Bilirubin 2.70 H (0.2-1.0) mg/dL AST 32 (13-39) U/L ALT 12 (7-52) U/L Alkaline Phosphatase 59 (34-104) U/L Ammonia Total Creatine Kinase 631 H (10-223) U/L Troponin I 0.19 H* (<0.04) ng/mL C-Reactive Protein 147.52 H (< 5.00) mg/L B-Natriuretic Peptide ( - 100) pg/mL Total Protein 7.0 (6.4-8.9) g/dL Albumin 3.5 (3.2-5.2) g/dL Globulin 3.5 (2-4) g/dL Albumin/Globulin Ratio 1.0 (1-3) Lipase 11 (11.0-82.0) U/L Urine Color Urine Appearance Urine pH (5-9) Ur Specific [place] (1.010-1.030) Urine Protein (Negative) Urine Ketones (Negative) Urine Blood (Negative) Urine Nitrate (Negative) Urine Bilirubin (Negative) Urine Urobilinogen (Negative) Ur Leukocyte Esterase (Negative) Urine WBC (Auto) (Absent) Urine RBC (Auto) (Absent) Ur Squamous Epith Cells (Absent) Urine Bacteria (Absent) Hyaline Casts (Absent) Urine Glucose (Negative) 08/23/17 08/23/17 08/23/17 Range/Units 11:35 11:35 12:05 WBC (3.5-10.8) 10^3/ul RBC (4.0-5.4) 10^6/ul Hgb (12.0-16.0) g/dl Hct (35-47) % MCV (80-97) fL MCH (27-31) pg MCHC (31-36) g/dl RDW (10.5-15) % Plt Count (150-450) 10^3/ul MPV (7.4-10.4) um3 Neut % (Auto) (38-83) % Lymph % (Auto) (25-47) % [place] % (Auto) (1-9) % Eos % (Auto) (0-6) % Baso % (Auto) (0-2) % Absolute Neuts (auto) (1.5-7.7) 10^3/ul Absolute Lymphs (auto) (1.0-4.8) 10^3/ul Absolute Monos (auto) (0-0.8) 10^3/ul Absolute Eos (auto) (0-0.6) 10^3/ul Absolute Basos (auto) (0-0.2) 10^3/ul Absolute Nucleated RBC 10^3/ul Nucleated RBC % APTT 27.7 (26.0-36.3) seconds Sodium (133-145) mmol/L Potassium (3.5-5.0) mmol/L Chloride (101-111) mmol/L Carbon Dioxide (22-32) mmol/L Anion Gap (2-11) mmol/L BUN (6-24) mg/dL Creatinine (0.51-0.95) mg/dL Est GFR ( Amer) (>60) Est GFR (Non-Af Amer) (>60) BUN/Creatinine Ratio (8-20) Glucose (70-100) mg/dL Lactic Acid (0.5-2.0) mmol/L Calcium (8.6-10.3) mg/dL Magnesium (1.9-2.7) mg/dL Total Bilirubin (0.2-1.0) mg/dL AST (13-39) U/L ALT (7-52) U/L Alkaline Phosphatase (34-104) U/L Ammonia TNP Total Creatine Kinase (10-223) U/L Troponin I (<0.04) ng/mL C-Reactive Protein (< 5.00) mg/L B-Natriuretic Peptide 287 H ( - 100) pg/mL Total Protein (6.4-8.9) g/dL Albumin (3.2-5.2) g/dL Globulin (2-4) g/dL Albumin/Globulin Ratio (1-3) Lipase (11.0-82.0) U/L Urine Color Yellow Urine Appearance Cloudy Urine pH 6.0 (5-9) Ur Specific [place] 1.020 (1.010-1.030) Urine Protein 2+(100 mg/dl) H (Negative) Urine Ketones 2+ H (Negative) Urine Blood 1+ H (Negative) Urine Nitrate Negative (Negative) Urine Bilirubin Negative (Negative) Urine Urobilinogen Negative (Negative) Ur Leukocyte Esterase Negative (Negative) Urine WBC (Auto) Trace(0-5/hpf) (Absent) Urine RBC (Auto) 3+(>10/hpf) H (Absent) Ur Squamous Epith Cells Present H (Absent) Urine Bacteria Absent (Absent) Hyaline Casts Present H (Absent) Urine Glucose Negative (Negative) 08/23/17 Range/Units 12:29 WBC (3.5-10.8) 10^3/ul RBC (4.0-5.4) 10^6/ul Hgb (12.0-16.0) g/dl Hct (35-47) % MCV (80-97) fL MCH (27-31) pg MCHC (31-36) g/dl RDW (10.5-15) % Plt Count (150-450) 10^3/ul MPV (7.4-10.4) um3 Neut % (Auto) (38-83) % Lymph % (Auto) (25-47) % [place] % (Auto) (1-9) % Eos % (Auto) (0-6) % Baso % (Auto) (0-2) % Absolute Neuts (auto) (1.5-7.7) 10^3/ul Absolute Lymphs (auto) (1.0-4.8) 10^3/ul Absolute Monos (auto) (0-0.8) 10^3/ul Absolute Eos (auto) (0-0.6) 10^3/ul Absolute Basos (auto) (0-0.2) 10^3/ul Absolute Nucleated RBC 10^3/ul Nucleated RBC % APTT (26.0-36.3) seconds Sodium (133-145) mmol/L Potassium (3.5-5.0) mmol/L Chloride (101-111) mmol/L Carbon Dioxide (22-32) mmol/L Anion Gap (2-11) mmol/L BUN (6-24) mg/dL Creatinine (0.51-0.95) mg/dL Est GFR ( Amer) (>60) Est GFR (Non-Af Amer) (>60) BUN/Creatinine Ratio (8-20) Glucose (70-100) mg/dL Lactic Acid (0.5-2.0) mmol/L Calcium (8.6-10.3) mg/dL Magnesium (1.9-2.7) mg/dL Total Bilirubin (0.2-1.0) mg/dL AST (13-39) U/L ALT (7-52) U/L Alkaline Phosphatase (34-104) U/L Ammonia 38 Total Creatine Kinase (10-223) U/L Troponin I (<0.04) ng/mL C-Reactive Protein (< 5.00) mg/L B-Natriuretic Peptide ( - 100) pg/mL Total Protein (6.4-8.9) g/dL Albumin (3.2-5.2) g/dL Globulin (2-4) g/dL Albumin/Globulin Ratio (1-3) Lipase (11.0-82.0) U/L Urine Color Urine Appearance Urine pH (5-9) Ur Specific [place] (1.010-1.030) Urine Protein (Negative) Urine Ketones (Negative) Urine Blood (Negative) Urine Nitrate (Negative) Urine Bilirubin (Negative) Urine Urobilinogen (Negative) Ur Leukocyte Esterase (Negative) Urine WBC (Auto) (Absent) Urine RBC (Auto) (Absent) Ur Squamous Epith Cells (Absent) Urine Bacteria (Absent) Hyaline Casts (Absent) Urine Glucose (Negative) Microbiology and Other Data: Microbiology 08/24/17 11:30 Urine Culture - Final Urine No Growth (<1,000 CFU/mL) Assess/Plan/Problems-Billing Assessment: - Patient Problems (1) Vascular dementia Current Visit: Yes Status: Acute Code(s): F01.50 - VASCULAR DEMENTIA WITHOUT BEHAVIORAL DISTURBANCE SNOMED Code(s): 820658782 Comment: MRI supports findings of likely vascular dementia, and her history of a sudden decline recently fits the picture of a "stepwise" decline. Still, we will rule out a infectious or metabolic etiology, as her daughter is not yet ready for a "comfort care" approach until we do so. (2) Abdominal pain Current Visit: Yes Status: Acute Code(s): R10.9 - UNSPECIFIED ABDOMINAL PAIN SNOMED Code(s): 17648368 Comment: Lactate is normal. Stool studies are pending (has been drinking water from the cistern with a green film on it). Check CT abdomen/pelvis given abdominal pain and leukocytosis (3) Urinary retention Current Visit: Yes Status: Acute Code(s): R33.9 - RETENTION OF URINE, UNSPECIFIED SNOMED Code(s): 230162614 Comment: Patient had straight cath in ED with 600 ml drained, then Yung inserted. Urine C&S no growth. She did not get an antibiotic. Status and Disposition: awaiting stool studies and CT abd/pelvis. If unremarkable, her symptoms are likely explained by worsening vascular dementia, and we will proceed with hospice referrals.
[2017-08-28] MEDS ORDERED: Iohexol 300* (CONTRAST) 10 ML SDV IV ONE (16:58)
--- NOTE | 2017-08-28 20:24 | RAD ---
CLINICAL HISTORY: Abdominal pain and leukocytosis COMPARISON: None TECHNIQUE: Multiple contiguous axial CT scans were obtained of the abdomen and pelvis after the administration of intravenous contrast. Coronal and sagittal multiplanar reformations are submitted for review. Oral contrast was not administered. Delayed images were obtained through the abdomen and pelvis. FINDINGS: The study is limited by patient motion artifact. LUNG BASES: There are moderate bilateral pleural effusions with compressive atelectasis of the lung bases bilaterally. LIVER: The liver is normal in shape, size, contour, and attenuation. BILE DUCTS: There is no intrahepatic or extrahepatic biliary dilatation. GALLBLADDER: The gallbladder is normal, without pericholecystic inflammatory change. PANCREAS: The pancreas is normal, without mass or ductal dilatation. SPLEEN: Normal in size and appearance. UPPER GI TRACT: Evaluation of the gastrointestinal tract is limited by incomplete gastric distention. The upper GI tract is unremarkable. SMALL BOWEL AND MESENTERY: The small bowel is normal in contour, course, and caliber. There is no obstruction or dilatation. COLON: There is inflammatory change along the sigmoid colon with a loculated gas and fluid collection along the antimesenteric margin of the sigmoid colon. This measures approximately 5.8 x 1.4 cm transversely and approximately 5 cm in cranial caudal dimension. There is large amount of stool within the colon. ADRENALS: Normal bilaterally. KIDNEYS: There is an extrarenal pelvis on the right. There is a simple cyst of the midpole the left kidney. There is no appreciable hydronephrosis or nephrolithiasis. BLADDER: The bladder is collapsed around a Yung catheter. PELVIC ORGANS: The uterus and adnexa are grossly normal for technique. AORTA: There is calcific atherosclerotic disease of the abdominal aorta and its branches, without aneurysmal dilatation IVC: Unremarkable LYMPH NODES: There is no lymphadenopathy by size criteria. ABDOMINAL WALL: There is no evidence for abdominal wall hernia. BONES AND SOFT TISSUES: There is diffuse osteopenia. Degenerative changes noted of the spine and hips. OTHER: None IMPRESSION: 1. THERE IS AN APPROXIMATELY 5-6 CM CM LOCULATED GAS AND FLUID COLLECTION ALONG THE SIGMOID COLON, CONSISTENT WITH ABSCESS, POSSIBLY SECONDARY TO DIVERTICULITIS. THE PRESENCE OF GAS INDICATES DILATATION WITH A HOLLOW VISCUS. 2. ATHEROSCLEROSIS. 3. BILATERAL PLEURAL EFFUSIONS. PRELIMINARY FINDINGS WERE DISCUSSED WITH DR. DUKES AT APPROXIMATELY 8:20 PM ON AUGUST 28, 2017.
--- NOTE | 2017-08-28 20:35 | PN ---
Progress Note - Progress Note Date of Service: 08/28/17 Note: Radiology called reporting 5-6cm brigido-sigmoid abscess, likely 2nd diverticulitis. Case reviewed w/ J MD Trey surgery who felt percutaneous drainage & ABX would be the best route for her. He will arrange surgical evaluation in the AM. Start piperacillin/tazobactam. CT guided abdominal abscess drainage ordered for AM. NPO x/ meds w/ sips clears after midnight.
[2017-08-28] MEDS ORDERED: Piperacillin/Tazobac ADVAN(*) 3.375 GM in NS 0.9% 100 ML* 100 ML IVPB ONE (21:00)
[2017-08-28] MEDS: QUEtiapine TAB* 25 MG PO SCH (21:54)
[2017-08-28] MEDS: Haloperidol INJ IV/IM* 5 MG/ML AMP IM PRN (23:23)
[2017-08-29] MEDS ORDERED: Piperacillin/Tazobactam 13.5 GM IV 24 hour continuous infusion IVPB SCH ×2 (01:00)
[2017-08-29] MEDS: Clotrimazole TROCHE* 10 MG TROCHE PO SCH ×6 (06:21→20:55)
[2017-08-29] MEDS: Potassium Chlor TAB* 20 MEQ TAB.ER PO SCH (10:10)
[2017-08-29 10:11] LABS: INR 1.03 (0.77-1.02)
--- NOTE | 2017-08-29 11:52 | PN ---
Subjective Date of Service: 08/29/17 Interval History: She offers no c/o but I suspect would not remember her recent sx's. Family History: Unchanged from Admission Social History: Unchanged from Admission Past Medical History: Unchanged from Admission Objective Active Medications: Acetaminophen (Tylenol Tab*) 650 mg PO Q6H PRN PRN Reason: FEVER/PAIN Last Admin: 08/27/17 09:45 Dose: 650 mg Clotrimazole (Mycelex Gabby*) 10 mg PO FIVE TIMES DAILY [facility] Last Admin: 08/29/17 10:10 Dose: Not Given Haloperidol Lactate (Haldol Inj Iv/Im*) 0.5 mg IM Q6H PRN PRN Reason: AGITATION Last Admin: 08/28/17 23:23 Dose: 0.5 mg Piperacillin Sod/Tazobactam (Sod 13.5 gm/ Sodium Chloride) 500 mls @ 20.833 mls /hr IVPB Q24H [facility] Stop: 08/30/17 00:59 Last Admin: 08/29/17 01:17 Dose: 20.833 mls/hr Piperacillin Sod/Tazobactam (Sod 3.375 gm/ Sodium Chloride) 100 mls @ 25 mls/ hr IVPB Q8H [facility] Polyethylene Glycol/Electrolytes (Miralax*) 17 gm PO BEDTIME PRN PRN Reason: CONSTIPATION Quetiapine Fumarate (Seroquel Tab*) 12.5 mg PO BEDTIME [facility] Last Admin: 08/28/17 21:54 Dose: 12.5 mg Tramadol HCl (Ultram*) 50 mg PO Q6H PRN PRN Reason: PAIN Last Admin: 08/25/17 22:50 Dose: 50 mg Vital Signs - 8 hr 08/29/17 08/29/17 07:40 11:10 Temperature 98.6 F Pulse Rate 84 Respiratory 22 24 Rate Blood Pressure 142/58 (mmHg) O2 Sat by Pulse 97 Oximetry Oxygen Devices in Use Now: None Appearance: Lethargic, partly up in bed. Passive. Looks comfortable. Eyes: No Scleral Icterus Respiratory: Symmetrical Chest Expansion and Respiratory Effort, Clear to Auscultation, Clear to Percussion Cardiovascular: NL Sounds; No Murmurs; No JVD, RRR, No Edema, - Abdominal: No Hepatosplenomegaly, - - soft, mod tender L abdomen. Nl BS. Not distended. Extremities: No Edema, No Clubbing, Cyanosis, - Skin: No Rash or Ulcers, No Nodules or Sclerosis, - Neurological: NL Sensation - LIAO. Very passive. Fair verbal skills. Cooperative. Disoriented. Result Diagrams: 08/28/17 07:01 08/28/17 07:01 Additional Lab and Data: Lab Results 08/23/17 08/23/17 08/23/17 Range/Units 11:35 11:35 11:35 WBC 15.0 H (3.5-10.8) 10^3/ul RBC 4.55 (4.0-5.4) 10^6/ul Hgb 13.1 (12.0-16.0) g/dl Hct 39 (35-47) % MCV 85 (80-97) fL MCH 29 (27-31) pg MCHC 34 (31-36) g/dl RDW 15 (10.5-15) % Plt Count 341 (150-450) 10^3/ul MPV 8 (7.4-10.4) um3 Neut % (Auto) 91.0 H (38-83) % Lymph % (Auto) 3.6 L (25-47) % [place] % (Auto) 4.9 (1-9) % Eos % (Auto) 0 (0-6) % Baso % (Auto) 0.5 (0-2) % Absolute Neuts (auto) 13.7 H (1.5-7.7) 10^3/ul Absolute Lymphs (auto) 0.5 L (1.0-4.8) 10^3/ul Absolute Monos (auto) 0.7 (0-0.8) 10^3/ul Absolute Eos (auto) 0 (0-0.6) 10^3/ul Absolute Basos (auto) 0.1 (0-0.2) 10^3/ul Absolute Nucleated RBC 0 10^3/ul Nucleated RBC % 0 APTT (26.0-36.3) seconds Sodium 129 L (133-145) mmol/L Potassium 3.1 L (3.5-5.0) mmol/L Chloride 92 L (101-111) mmol/L Carbon Dioxide 24 (22-32) mmol/L Anion Gap 13 H (2-11) mmol/L BUN 24 (6-24) mg/dL Creatinine 0.87 (0.51-0.95) mg/dL Est GFR ( Amer) 78.8 (>60) Est GFR (Non-Af Amer) 61.3 (>60) BUN/Creatinine Ratio 27.6 H (8-20) Glucose 91 (70-100) mg/dL Lactic Acid 0.9 (0.5-2.0) mmol/L Calcium 9.5 (8.6-10.3) mg/dL Magnesium 1.9 (1.9-2.7) mg/dL Total Bilirubin 2.70 H (0.2-1.0) mg/dL AST 32 (13-39) U/L ALT 12 (7-52) U/L Alkaline Phosphatase 59 (34-104) U/L Ammonia Total Creatine Kinase 631 H (10-223) U/L Troponin I 0.19 H* (<0.04) ng/mL C-Reactive Protein 147.52 H (< 5.00) mg/L B-Natriuretic Peptide ( - 100) pg/mL Total Protein 7.0 (6.4-8.9) g/dL Albumin 3.5 (3.2-5.2) g/dL Globulin 3.5 (2-4) g/dL Albumin/Globulin Ratio 1.0 (1-3) Lipase 11 (11.0-82.0) U/L Urine Color Urine Appearance Urine pH (5-9) Ur Specific [place] (1.010-1.030) Urine Protein (Negative) Urine Ketones (Negative) Urine Blood (Negative) Urine Nitrate (Negative) Urine Bilirubin (Negative) Urine Urobilinogen (Negative) Ur Leukocyte Esterase (Negative) Urine WBC (Auto) (Absent) Urine RBC (Auto) (Absent) Ur Squamous Epith Cells (Absent) Urine Bacteria (Absent) Hyaline Casts (Absent) Urine Glucose (Negative) 08/23/17 08/23/17 08/23/17 Range/Units 11:35 11:35 12:05 WBC (3.5-10.8) 10^3/ul RBC (4.0-5.4) 10^6/ul Hgb (12.0-16.0) g/dl Hct (35-47) % MCV (80-97) fL MCH (27-31) pg MCHC (31-36) g/dl RDW (10.5-15) % Plt Count (150-450) 10^3/ul MPV (7.4-10.4) um3 Neut % (Auto) (38-83) % Lymph % (Auto) (25-47) % [place] % (Auto) (1-9) % Eos % (Auto) (0-6) % Baso % (Auto) (0-2) % Absolute Neuts (auto) (1.5-7.7) 10^3/ul Absolute Lymphs (auto) (1.0-4.8) 10^3/ul Absolute Monos (auto) (0-0.8) 10^3/ul Absolute Eos (auto) (0-0.6) 10^3/ul Absolute Basos (auto) (0-0.2) 10^3/ul Absolute Nucleated RBC 10^3/ul Nucleated RBC % APTT 27.7 (26.0-36.3) seconds Sodium (133-145) mmol/L Potassium (3.5-5.0) mmol/L Chloride (101-111) mmol/L Carbon Dioxide (22-32) mmol/L Anion Gap (2-11) mmol/L BUN (6-24) mg/dL Creatinine (0.51-0.95) mg/dL Est GFR ( Amer) (>60) Est GFR (Non-Af Amer) (>60) BUN/Creatinine Ratio (8-20) Glucose (70-100) mg/dL Lactic Acid (0.5-2.0) mmol/L Calcium (8.6-10.3) mg/dL Magnesium (1.9-2.7) mg/dL Total Bilirubin (0.2-1.0) mg/dL AST (13-39) U/L ALT (7-52) U/L Alkaline Phosphatase (34-104) U/L Ammonia TNP Total Creatine Kinase (10-223) U/L Troponin I (<0.04) ng/mL C-Reactive Protein (< 5.00) mg/L B-Natriuretic Peptide 287 H ( - 100) pg/mL Total Protein (6.4-8.9) g/dL Albumin (3.2-5.2) g/dL Globulin (2-4) g/dL Albumin/Globulin Ratio (1-3) Lipase (11.0-82.0) U/L Urine Color Yellow Urine Appearance Cloudy Urine pH 6.0 (5-9) Ur Specific [place] 1.020 (1.010-1.030) Urine Protein 2+(100 mg/dl) H (Negative) Urine Ketones 2+ H (Negative) Urine Blood 1+ H (Negative) Urine Nitrate Negative (Negative) Urine Bilirubin Negative (Negative) Urine Urobilinogen Negative (Negative) Ur Leukocyte Esterase Negative (Negative) Urine WBC (Auto) Trace(0-5/hpf) (Absent) Urine RBC (Auto) 3+(>10/hpf) H (Absent) Ur Squamous Epith Cells Present H (Absent) Urine Bacteria Absent (Absent) Hyaline Casts Present H (Absent) Urine Glucose Negative (Negative) 08/23/17 Range/Units 12:29 WBC (3.5-10.8) 10^3/ul RBC (4.0-5.4) 10^6/ul Hgb (12.0-16.0) g/dl Hct (35-47) % MCV (80-97) fL MCH (27-31) pg MCHC (31-36) g/dl RDW (10.5-15) % Plt Count (150-450) 10^3/ul MPV (7.4-10.4) um3 Neut % (Auto) (38-83) % Lymph % (Auto) (25-47) % [place] % (Auto) (1-9) % Eos % (Auto) (0-6) % Baso % (Auto) (0-2) % Absolute Neuts (auto) (1.5-7.7) 10^3/ul Absolute Lymphs (auto) (1.0-4.8) 10^3/ul Absolute Monos (auto) (0-0.8) 10^3/ul Absolute Eos (auto) (0-0.6) 10^3/ul Absolute Basos (auto) (0-0.2) 10^3/ul Absolute Nucleated RBC 10^3/ul Nucleated RBC % APTT (26.0-36.3) seconds Sodium (133-145) mmol/L Potassium (3.5-5.0) mmol/L Chloride (101-111) mmol/L Carbon Dioxide (22-32) mmol/L Anion Gap (2-11) mmol/L BUN (6-24) mg/dL Creatinine (0.51-0.95) mg/dL Est GFR ( Amer) (>60) Est GFR (Non-Af Amer) (>60) BUN/Creatinine Ratio (8-20) Glucose (70-100) mg/dL Lactic Acid (0.5-2.0) mmol/L Calcium (8.6-10.3) mg/dL Magnesium (1.9-2.7) mg/dL Total Bilirubin (0.2-1.0) mg/dL AST (13-39) U/L ALT (7-52) U/L Alkaline Phosphatase (34-104) U/L Ammonia 38 Total Creatine Kinase (10-223) U/L Troponin I (<0.04) ng/mL C-Reactive Protein (< 5.00) mg/L B-Natriuretic Peptide ( - 100) pg/mL Total Protein (6.4-8.9) g/dL Albumin (3.2-5.2) g/dL Globulin (2-4) g/dL Albumin/Globulin Ratio (1-3) Lipase (11.0-82.0) U/L Urine Color Urine Appearance Urine pH (5-9) Ur Specific [place] (1.010-1.030) Urine Protein (Negative) Urine Ketones (Negative) Urine Blood (Negative) Urine Nitrate (Negative) Urine Bilirubin (Negative) Urine Urobilinogen (Negative) Ur Leukocyte Esterase (Negative) Urine WBC (Auto) (Absent) Urine RBC (Auto) (Absent) Ur Squamous Epith Cells (Absent) Urine Bacteria (Absent) Hyaline Casts (Absent) Urine Glucose (Negative) Microbiology and Other Data: Microbiology 08/24/17 11:30 Urine Culture - Final Urine No Growth (<1,000 CFU/mL) Assess/Plan/Problems-Billing Assessment: - Patient Problems (1) Dementia Current Visit: Yes Status: Acute Code(s): F03.90 - UNSPECIFIED DEMENTIA WITHOUT BEHAVIORAL DISTURBANCE SNOMED Code(s): 70854472 Comment: 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 Received quetiapine 25 mg hs /, will decrease to 12. 5 mg. OT/ PT eval. MRI showed only chronic small vessel disease. Stop quetiapine 08/29, not clear if it is of benefit. Continbue PRN IM 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 (2) Urinary retention Current Visit: Yes Status: Acute Code(s): R33.9 - RETENTION OF URINE, UNSPECIFIED SNOMED Code(s): 497987106 Comment: Patient had straight cath in ED with 600 ml drained, then Yung inserted. Urine C&S no growth. She did not get an antibiotic. (3) Constipation Current Visit: Yes Status: Acute Code(s): K59.00 - CONSTIPATION, UNSPECIFIED SNOMED Code(s): 72939830 Comment: BM after 300 ml magnesium citrate. PEG 17 gm q hs. (4) Vascular dementia Current Visit: Yes Status: Acute Code(s): F01.50 - VASCULAR DEMENTIA WITHOUT BEHAVIORAL DISTURBANCE SNOMED Code(s): 710954128 Comment: MRI supports findings of likely vascular dementia, and her history of a sudden decline recently fits the picture of a "stepwise" decline. Still, we will rule out a infectious or metabolic etiology, as her daughter is not yet ready for a "comfort care" approach until we do so. (5) Colonic diverticular abscess Current Visit: Yes Status: Acute Code(s): K57.20 - DVTRCLI OF LG INT W PERFORATION AND ABSCESS W/O BLEEDING SNOMED Code(s): 763444797 Comment: Scheduled for IR drainage 08/29. Continue pip/quique. US abd pending. Status and Disposition: awaiting stool studies and CT abd/pelvis. If unremarkable, her symptoms are likely explained by worsening vascular dementia, and we will proceed with hospice referrals.
--- NOTE | 2017-08-29 13:48 | RAD ---
INDICATION: Left lower quadrant abscess COMPARISON: CT abdomen pelvis August 28, 2017 TECHNIQUE: Real time ultrasound images of the left lower quadrant were acquired in fuentes scale and Doppler color flow. FINDINGS: Limited portable ultrasound of left lower quadrant shows an avascular fluid collection external to the bowel measuring approximately 5.9 x 5.1 x 4.9 cm. This corresponds to findings identified on the recent CT of the abdomen and pelvis. IMPRESSION: Sonographic findings are consistent with a left lower quadrant. Extracolonic abscess that appears to be accessible percutaneously.
[2017-08-29] MEDS ORDERED: Ondansetron INJ* 2 MG/ML VIAL ONE (14:27)
[2017-08-29] MEDS ORDERED: fentaNYL* 50 MCG/ML 2 ML VIAL (100 MCG VIAL) ONE (14:27)
--- NOTE | 2017-08-29 16:47 | RAD ---
CPT II Codes: 6045F INDICATION: Left lower quadrant abdominal collection COMPARISON: CT abdomen pelvis August 28, 2017 FLUOROSCOPY TIME: 15 seconds ANESTHESIA AND OTHER PERIOPERATIVE MEDICATIONS: 1% lidocaine locally. 25 mcg IV fentanyl. PROCEDURE NOTE AND IMAGING FINDINGS: The benefits and risks of the procedure explained to the patient. The patient consented to the procedure. Preliminary sonographic exam demonstrates what appears to be fluid in the left lower quadrant with air-fluid levels. Color flow analysis does not show any pulsating arteries in the intended percutaneous biopsy tract or in the immediate vicinity of the planned drain placement. There is no peristalsis. The patient was brought to the fluoroscopy suite and positioned in the supine position. A formal time out was preformed with the technologist and nursing staff. The intended percutaneous abscess drain site was prepped and draped in the usual sterile fashion. The patient was given intravenous sedation and local anesthesia with 1% lidocaine. Using ultrasound guidance the collection was accessed percutaneously with a 5-[place] [facility] needle and catheter system. The needle was removed and approximately 1 mL of thick purulent material is aspirated. Through the catheter contrast was injected revealing the collection is more solid than fluid. Contrast is seen insinuating around but not within the bowel in the left lower quadrant. Under sonographic control a second portion of the collection was accessed with an 18-gauge needle but no fluid could readily be aspirated. It was determined during the procedure that what appeared to be a fluid collection was more "phlegmon" and a percutaneous drainage catheter was not indicated. Both the catheter and needle were removed and the site was dressed with sterile gauze and Tegaderm. The patient tolerated the procedure well without incident. IMPRESSION: The planned left lower quadrant percutaneous abscess drain was converted to simple aspiration after was discovered that the left lower quadrant collection was mostly "phlegmon" as opposed to a fluid collection. A drainage catheter was not indicated. A 1 mL sample of intravenous material was aspirated and sent to the laboratory for culture and sensitivity.
--- NOTE | 2017-08-29 18:14 | PN ---
Progress Note - Progress Note Date of Service: 08/29/17 SOAP: Subjective: Chart reviewed and I examined patient tonight I reviewed CT and ultrasounds I discussed care with Melony Britton NP who saw her earlier today in surgical consultation Objective: PEX: Abdomen is soft and slightly distended. She has tenderness in the left lower quadrant with some guarding. There is no generalized peritonitis. Assessment: LLQ abdomen abscess-probably secondary to diverticular perforation--collection not able to be drained today by IR as was felt to be more of a phlegmonous process that true abscess. Malnutrition Dementia Plan: I discussed all of the above with her daughter (Santiago) on the phone tonight. This is a complicated problem with her age and associated medical conditions as well as dementia and I think she a very high risk for any form of surgical intervention. Her daughter would also like to avoid surgery at all cost and I think the prudent course of initial treatment is IV antibiotics for a course with close observation and probable serial CT scans. If this is truly a phlegmon rather than an abscess this may respond nicely to this treatment. If her condition worsens, we will re-assess and proceed accordingly. Surgery would most likely be an exploratory laparotomy with a colostomy. Her daughter is going to talk with family as well. For now recommendation is IV abx and diet as tolerated.
[2017-08-29] MEDS: Acetaminophen TAB* 325 MG PO PRN (18:20)
--- NOTE | 2017-08-30 00:19 | CONS ---
CC: Yakov Goetz MD, [facility] * SURGICAL CONSULTATION NOTE: DATE OF CONSULT: 08/29/17 ATTENDING PHYSICIAN: Yakov Goetz MD LOCATION: This patient was evaluated on , 08/29/17 at [facility] in room 405. TIME SPENT: Sixty minutes with greater than 50% in [id number] history taking and coordination of care. CHIEF COMPLAINT: Abdominal pain, possible diverticular abscess. HISTORY OF PRESENT ILLNESS: The patient is a frail 87-year-old female who was brought to the emergency room on 08/23/17 by her daughter. Her daughter states that prior to this admission, her mother had been living independently; her daughter called her on the morning of 08/22/17, and her mother did not answer the phone, so her daughter went to her mother's house and found her on the floor. Apparently, she was awake, but very confused; she was complaining of nausea and vomited several times before her daughter brought her to the emergency room on 08/23/17. On admission, her white blood cell count was elevated at 15.4. She was found to be in urinary retention. Apparently, her abdominal pain persisted and a CAT scan of the abdomen and pelvis was obtained on 08/28/17, which revealed a 5 to 6 cm loculated gas and fluid collection along the sigmoid colon consistent with abscess possibly secondary to diverticulitis. The case was reviewed by the hospitalist with Dr. Roby Yang and recommendations were made for intravenous antibiotics and percutaneous drainage. Today, Dr. Monroe attempted percutaneous drainage, but according to the patient's daughter, the collection was not amenable to drainage and a small amount of fluid was obtained for culture. As of yesterday, the patient's white blood cell count was 13.3 and she has been afebrile throughout the admission. The nurses report that she had 2 bowel movements on 08/26/17. Today, the patient reports pain in the left lower quadrant of the abdomen, she is not sure if she is passing flatus. She does feel hungry. PAST MEDICAL HISTORY: No significant medical conditions according to her daughter, Nola. PAST SURGICAL HISTORY: None. PAST MEDICATIONS: None. ALLERGIES: Possibly DOXYCYCLINE and DIAZEPAM. FAMILY HISTORY: Unchanged from admission. SOCIAL HISTORY: Unchanged from admission. REVIEW OF SYSTEMS: Constitutional: She has had weight loss over the past year. Endocrine: No diabetes or thyroid disease. Respiratory: No shortness of breath or chronic cough. Cardiovascular: No chest pain or palpitations. Gastrointestinal: As described in history of present illness. Genitourinary: Recent urinary retention. Musculoskeletal: No joint or back pain. She is very weak. Neurologic: Awake, but has difficulty answering questions. She is mildly confused, but very cooperative. PHYSICAL EXAMINATION: General Survey: The patient is an 87-year-old female, very frail and ill appearing, in no acute distress. Height 5 feet 1 inch, weight 97 pounds, body mass index 18. Blood pressure 128/60, pulse 80 and regular, respiratory rate 18, temperature 98.3 tympanic, O2 saturation 96% on room air. HEENT: Benign. Neck: Supple. No cervical lymphadenopathy. Lungs: Decreased breath sounds at the bases. No rales or rhonchi noted. Heart: Regular rate and rhythm. No murmurs or rubs appreciated. Abdomen: Hypoactive bowel sounds. Soft, nondistended. Tender in the left lower quadrant. No obvious masses or organomegaly. Pelvic and rectal exams deferred. Extremities are without edema or skin ulcerations. Neurologic: Awake, mildly confused but cooperative. IMPRESSION: This is a very frail 87-year-old female with a loculated collection along the sigmoid colon consistent with abscess possibly secondary to diverticulitis which was not amenable to percutaneous drainage today; however , a small amount of fluid or tissue was submitted for culture. PLAN: I discussed the findings with Dr. Yoder from the hospitalist service and recommended continuing with IV Zosyn, clear liquid diet. I will update Dr. Goetz and we will follow her with you; her daughter verbalized concern about being very high risk for any type of surgical procedure and currently she has a DNR status. As previously mentioned, time spent was 60 minutes with greater than 50% spent in [id number] history taking and coordination of care. SRIRAM MENA NP [id number]/[facility] #: [id number] DARI
[2017-08-30] MEDS: Clotrimazole TROCHE* 10 MG TROCHE PO SCH ×5 (04:41→21:15)
[2017-08-30] MEDS: ZOSYN 3.375 GM Q8H per EXTENDED INFUSION IVPB SCH ×6 (04:41→21:14)
[2017-08-30] MEDS: Polyethylene Glycol 3350* 17 GM PACKET PO PRN ×2 (05:22→23:37)
[2017-08-30 06:04] LABS: ABS Basophils 0.1 10^3/ul (0-0.2); ABS Eosinophils 0.3 10^3/ul (0-0.6); ABS Neutrophils 10.1 10^3/ul (1.5-7.7); ABS Nucleated RBC 0 10^3/ul; Eosinophil % 2.2 % (0-6); Hematocrit 33 % (35-47); Hemoglobin 11.2 g/dl (12.0-16.0); Lymphocyte % 7.6 % (25-47); Mean Corpuscular HGB Conc 34 g/dl (31-36); Mean Corpuscular Hemoglobin 29 pg (27-31); Mean Corpuscular Volume 85 fL (80-97); Mean Platelet Volume 7 um3 (7.4-10.4); Nucleated Red Blood Cells % 0.1; Platelet Count 376 10^3/ul (150-450); Red Blood Count 3.89 10^6/ul (4.0-5.4); Red Cell Distribution Width 15 % (10.5-15); White Blood Count 12.5 10^3/ul (3.5-10.8)
[2017-08-30] MEDS ORDERED: NS 0.9% 1000 ML* 1,000 ML IV SCH (06:15)
[2017-08-30] MEDS: Acetaminophen TAB* 325 MG PO PRN (10:48)
--- NOTE | 2017-08-30 12:17 | PN ---
Progress Note - Progress Note Date of Service: 08/30/17 SOAP: Subjective: Patient seen and examined at bedside. Not a great historian, but she denies any pain. She would like to go home. Objective: Awake and alert, appears comfortable VSS, Tmax 99.2 Abdomen soft, NT, ND. No guarding or rebound. Ext. without edema I/O's noted Assessment: Intra-abdominal abscess, likely secondary to perforated diverticulitis, stable clinically Plan: Continue IV Abx No signs of acute abdomen Not a surgical candidate at this point, family aware according to Dr. Goetz' s note yesterday
--- NOTE | 2017-08-30 15:15 | PN ---
Subjective Date of Service: 08/30/17 Interval History: No c/o. Denies pain. Family History: Unchanged from Admission Social History: Unchanged from Admission Past Medical History: Unchanged from Admission Objective Active Medications: Acetaminophen (Tylenol Tab*) 650 mg PO Q6H PRN PRN Reason: FEVER/PAIN Last Admin: 08/29/17 18:20 Dose: 650 mg Clotrimazole (Mycelex Gabby*) 10 mg PO FIVE TIMES DAILY [facility] Last Admin: 08/30/17 13:25 Dose: 10 mg Haloperidol Lactate (Haldol Inj Iv/Im*) 0.5 mg IM Q6H PRN PRN Reason: AGITATION Last Admin: 08/28/17 23:23 Dose: 0.5 mg Piperacillin Sod/Tazobactam (Sod 3.375 gm/ Sodium Chloride) 100 mls @ 25 mls/ hr IVPB Q8H [facility] Last Admin: 08/30/17 13:25 Dose: 25 mls/hr Sodium Chloride (Ns 0.9% 1000 Ml*) 1,000 mls @ 40 mls/hr IV .PER RATE [facility] Polyethylene Glycol/Electrolytes (Miralax*) 17 gm PO BEDTIME PRN PRN Reason: CONSTIPATION Last Admin: 08/30/17 05:22 Dose: 17 gm Tramadol HCl (Ultram*) 50 mg PO Q6H PRN PRN Reason: PAIN Last Admin: 08/25/17 22:50 Dose: 50 mg Oxygen Devices in Use Now: None Appearance: Alert, partly up in bed. In fair sprits but very passive. Looks comfortable. Eyes: No Scleral Icterus Respiratory: Symmetrical Chest Expansion and Respiratory Effort, Clear to Auscultation, Clear to Percussion Cardiovascular: NL Sounds; No Murmurs; No JVD, RRR, No Edema, - Abdominal: NL Sounds; No Tenderness; No Distention, No Hepatosplenomegaly, - Extremities: No Edema, No Clubbing, Cyanosis, - Skin: No Rash or Ulcers, No Nodules or Sclerosis, - Neurological: NL Sensation - SHe can states her full name and age but gave "March" as the present month and could not guess the present year. She was holding a hand-made card signed [place] and said she did not know who Melanie was. Result Diagrams: 08/30/17 05:35 08/28/17 07:01 Additional Lab and Data: Lab Results 08/23/17 08/23/17 08/23/17 Range/Units 11:35 11:35 11:35 WBC 15.0 H (3.5-10.8) 10^3/ul RBC 4.55 (4.0-5.4) 10^6/ul Hgb 13.1 (12.0-16.0) g/dl Hct 39 (35-47) % MCV 85 (80-97) fL MCH 29 (27-31) pg MCHC 34 (31-36) g/dl RDW 15 (10.5-15) % Plt Count 341 (150-450) 10^3/ul MPV 8 (7.4-10.4) um3 Neut % (Auto) 91.0 H (38-83) % Lymph % (Auto) 3.6 L (25-47) % [place] % (Auto) 4.9 (1-9) % Eos % (Auto) 0 (0-6) % Baso % (Auto) 0.5 (0-2) % Absolute Neuts (auto) 13.7 H (1.5-7.7) 10^3/ul Absolute Lymphs (auto) 0.5 L (1.0-4.8) 10^3/ul Absolute Monos (auto) 0.7 (0-0.8) 10^3/ul Absolute Eos (auto) 0 (0-0.6) 10^3/ul Absolute Basos (auto) 0.1 (0-0.2) 10^3/ul Absolute Nucleated RBC 0 10^3/ul Nucleated RBC % 0 APTT (26.0-36.3) seconds Sodium 129 L (133-145) mmol/L Potassium 3.1 L (3.5-5.0) mmol/L Chloride 92 L (101-111) mmol/L Carbon Dioxide 24 (22-32) mmol/L Anion Gap 13 H (2-11) mmol/L BUN 24 (6-24) mg/dL Creatinine 0.87 (0.51-0.95) mg/dL Est GFR ( Amer) 78.8 (>60) Est GFR (Non-Af Amer) 61.3 (>60) BUN/Creatinine Ratio 27.6 H (8-20) Glucose 91 (70-100) mg/dL Lactic Acid 0.9 (0.5-2.0) mmol/L Calcium 9.5 (8.6-10.3) mg/dL Magnesium 1.9 (1.9-2.7) mg/dL Total Bilirubin 2.70 H (0.2-1.0) mg/dL AST 32 (13-39) U/L ALT 12 (7-52) U/L Alkaline Phosphatase 59 (34-104) U/L Ammonia Total Creatine Kinase 631 H (10-223) U/L Troponin I 0.19 H* (<0.04) ng/mL C-Reactive Protein 147.52 H (< 5.00) mg/L B-Natriuretic Peptide ( - 100) pg/mL Total Protein 7.0 (6.4-8.9) g/dL Albumin 3.5 (3.2-5.2) g/dL Globulin 3.5 (2-4) g/dL Albumin/Globulin Ratio 1.0 (1-3) Lipase 11 (11.0-82.0) U/L Urine Color Urine Appearance Urine pH (5-9) Ur Specific [place] (1.010-1.030) Urine Protein (Negative) Urine Ketones (Negative) Urine Blood (Negative) Urine Nitrate (Negative) Urine Bilirubin (Negative) Urine Urobilinogen (Negative) Ur Leukocyte Esterase (Negative) Urine WBC (Auto) (Absent) Urine RBC (Auto) (Absent) Ur Squamous Epith Cells (Absent) Urine Bacteria (Absent) Hyaline Casts (Absent) Urine Glucose (Negative) 08/23/17 08/23/17 08/23/17 Range/Units 11:35 11:35 12:05 WBC (3.5-10.8) 10^3/ul RBC (4.0-5.4) 10^6/ul Hgb (12.0-16.0) g/dl Hct (35-47) % MCV (80-97) fL MCH (27-31) pg MCHC (31-36) g/dl RDW (10.5-15) % Plt Count (150-450) 10^3/ul MPV (7.4-10.4) um3 Neut % (Auto) (38-83) % Lymph % (Auto) (25-47) % [place] % (Auto) (1-9) % Eos % (Auto) (0-6) % Baso % (Auto) (0-2) % Absolute Neuts (auto) (1.5-7.7) 10^3/ul Absolute Lymphs (auto) (1.0-4.8) 10^3/ul Absolute Monos (auto) (0-0.8) 10^3/ul Absolute Eos (auto) (0-0.6) 10^3/ul Absolute Basos (auto) (0-0.2) 10^3/ul Absolute Nucleated RBC 10^3/ul Nucleated RBC % APTT 27.7 (26.0-36.3) seconds Sodium (133-145) mmol/L Potassium (3.5-5.0) mmol/L Chloride (101-111) mmol/L Carbon Dioxide (22-32) mmol/L Anion Gap (2-11) mmol/L BUN (6-24) mg/dL Creatinine (0.51-0.95) mg/dL Est GFR ( Amer) (>60) Est GFR (Non-Af Amer) (>60) BUN/Creatinine Ratio (8-20) Glucose (70-100) mg/dL Lactic Acid (0.5-2.0) mmol/L Calcium (8.6-10.3) mg/dL Magnesium (1.9-2.7) mg/dL Total Bilirubin (0.2-1.0) mg/dL AST (13-39) U/L ALT (7-52) U/L Alkaline Phosphatase (34-104) U/L Ammonia TNP Total Creatine Kinase (10-223) U/L Troponin I (<0.04) ng/mL C-Reactive Protein (< 5.00) mg/L B-Natriuretic Peptide 287 H ( - 100) pg/mL Total Protein (6.4-8.9) g/dL Albumin (3.2-5.2) g/dL Globulin (2-4) g/dL Albumin/Globulin Ratio (1-3) Lipase (11.0-82.0) U/L Urine Color Yellow Urine Appearance Cloudy Urine pH 6.0 (5-9) Ur Specific [place] 1.020 (1.010-1.030) Urine Protein 2+(100 mg/dl) H (Negative) Urine Ketones 2+ H (Negative) Urine Blood 1+ H (Negative) Urine Nitrate Negative (Negative) Urine Bilirubin Negative (Negative) Urine Urobilinogen Negative (Negative) Ur Leukocyte Esterase Negative (Negative) Urine WBC (Auto) Trace(0-5/hpf) (Absent) Urine RBC (Auto) 3+(>10/hpf) H (Absent) Ur Squamous Epith Cells Present H (Absent) Urine Bacteria Absent (Absent) Hyaline Casts Present H (Absent) Urine Glucose Negative (Negative) 08/23/17 Range/Units 12:29 WBC (3.5-10.8) 10^3/ul RBC (4.0-5.4) 10^6/ul Hgb (12.0-16.0) g/dl Hct (35-47) % MCV (80-97) fL MCH (27-31) pg MCHC (31-36) g/dl RDW (10.5-15) % Plt Count (150-450) 10^3/ul MPV (7.4-10.4) um3 Neut % (Auto) (38-83) % Lymph % (Auto) (25-47) % [place] % (Auto) (1-9) % Eos % (Auto) (0-6) % Baso % (Auto) (0-2) % Absolute Neuts (auto) (1.5-7.7) 10^3/ul Absolute Lymphs (auto) (1.0-4.8) 10^3/ul Absolute Monos (auto) (0-0.8) 10^3/ul Absolute Eos (auto) (0-0.6) 10^3/ul Absolute Basos (auto) (0-0.2) 10^3/ul Absolute Nucleated RBC 10^3/ul Nucleated RBC % APTT (26.0-36.3) seconds Sodium (133-145) mmol/L Potassium (3.5-5.0) mmol/L Chloride (101-111) mmol/L Carbon Dioxide (22-32) mmol/L Anion Gap (2-11) mmol/L BUN (6-24) mg/dL Creatinine (0.51-0.95) mg/dL Est GFR ( Amer) (>60) Est GFR (Non-Af Amer) (>60) BUN/Creatinine Ratio (8-20) Glucose (70-100) mg/dL Lactic Acid (0.5-2.0) mmol/L Calcium (8.6-10.3) mg/dL Magnesium (1.9-2.7) mg/dL Total Bilirubin (0.2-1.0) mg/dL AST (13-39) U/L ALT (7-52) U/L Alkaline Phosphatase (34-104) U/L Ammonia 38 Total Creatine Kinase (10-223) U/L Troponin I (<0.04) ng/mL C-Reactive Protein (< 5.00) mg/L B-Natriuretic Peptide ( - 100) pg/mL Total Protein (6.4-8.9) g/dL Albumin (3.2-5.2) g/dL Globulin (2-4) g/dL Albumin/Globulin Ratio (1-3) Lipase (11.0-82.0) U/L Urine Color Urine Appearance Urine pH (5-9) Ur Specific [place] (1.010-1.030) Urine Protein (Negative) Urine Ketones (Negative) Urine Blood (Negative) Urine Nitrate (Negative) Urine Bilirubin (Negative) Urine Urobilinogen (Negative) Ur Leukocyte Esterase (Negative) Urine WBC (Auto) (Absent) Urine RBC (Auto) (Absent) Ur Squamous Epith Cells (Absent) Urine Bacteria (Absent) Hyaline Casts (Absent) Urine Glucose (Negative) Microbiology and Other Data: Microbiology 08/24/17 11:30 Urine Culture - Final Urine No Growth (<1,000 CFU/mL) Assess/Plan/Problems-Billing Assessment: - Patient Problems (1) Dementia Current Visit: Yes Status: Acute Code(s): F03.90 - UNSPECIFIED DEMENTIA WITHOUT BEHAVIORAL DISTURBANCE SNOMED Code(s): 61542487 Comment: 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 Received quetiapine 25 mg hs 08/25, will decrease to 12. 5 mg. OT/ PT eval. MRI showed only chronic small vessel disease. Stop quetiapine 08/29, not clear if it is of benefit. Continue PRN IM 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 Three calorie counts 08/26 through 08/28 were 510, 400, 440 calories. Prealbumin for 08/31. (2) Urinary retention Current Visit: Yes Status: Acute Code(s): R33.9 - RETENTION OF URINE, UNSPECIFIED SNOMED Code(s): 575657363 Comment: Patient had straight cath in ED with 600 ml drained, then Yung inserted. Urine C&S no growth. She did not get an antibiotic. (3) Constipation Current Visit: Yes Status: Acute Code(s): K59.00 - CONSTIPATION, UNSPECIFIED SNOMED Code(s): 01766232 Comment: BM after 300 ml magnesium citrate. PEG 17 gm q hs. (4) Vascular dementia Current Visit: Yes Status: Acute Code(s): F01.50 - VASCULAR DEMENTIA WITHOUT BEHAVIORAL DISTURBANCE SNOMED Code(s): 647903241 Comment: MRI supports findings of likely vascular dementia, and her history of a sudden decline recently fits the picture of a "stepwise" decline. Still, we will rule out a infectious or metabolic etiology, as her daughter is not yet ready for a "comfort care" approach until we do so. (5) Colonic diverticular abscess Current Visit: Yes Status: Acute Code(s): K57.20 - DVTRCLI OF LG INT W PERFORATION AND ABSCESS W/O BLEEDING SNOMED Code(s): 374078390 Comment: Scheduled for IR drainage 08/29. Continue pip/quique. US abd pending showed fluid collection external to the bowel. Aspiration on 08/29 yielded 1 ml of purulent thick fluid. Injection of contrast was done. Discussed with Dr. Goetz 08/29--pt not a surgical candidate. Status and Disposition: awaiting stool studies and CT abd/pelvis. If unremarkable, her symptoms are likely explained by worsening vascular dementia, and we will proceed with hospice referrals.
[2017-08-31] MEDS: ZOSYN 3.375 GM Q8H per EXTENDED INFUSION IVPB SCH ×6 (05:05→22:27)
[2017-08-31] MEDS: Clotrimazole TROCHE* 10 MG TROCHE PO SCH ×5 (05:43→22:30)
[2017-08-31] MEDS: NS 0.9% 1000 ML* 1,000 ML IV SCH (07:18)
[2017-08-31 08:57] LABS: EGFR Non-African American 97.9 (>60)
--- NOTE | 2017-08-31 12:56 | PN ---
Subjective Date of Service: 08/31/17 Interval History: No patient c/o. She is not hungry. She states she doesn't eat breakfast and is not hungry for lunch now either. No pain. Family History: Unchanged from Admission Social History: Unchanged from Admission Past Medical History: Unchanged from Admission Objective Active Medications: Acetaminophen (Tylenol Tab*) 650 mg PO Q6H PRN PRN Reason: FEVER/PAIN Last Admin: 08/29/17 18:20 Dose: 650 mg Clotrimazole (Mycelex Gabby*) 10 mg PO FIVE TIMES DAILY REPLACED BY [facility] Last Admin: 08/31/17 10:34 Dose: 10 mg Haloperidol Lactate (Haldol Inj Iv/Im*) 0.5 mg IM Q6H PRN PRN Reason: AGITATION Last Admin: 08/28/17 23:23 Dose: 0.5 mg Piperacillin Sod/Tazobactam (Sod 3.375 gm/ Sodium Chloride) 100 mls @ 25 mls/ hr IVPB Q8H REPLACED BY [facility] Last Admin: 08/31/17 05:05 Dose: 25 mls/hr Sodium Chloride (Ns 0.9% 1000 Ml*) 1,000 mls @ 40 mls/hr IV .PER RATE REPLACED BY [facility] Last Admin: 08/31/17 07:18 Dose: 40 mls/hr Polyethylene Glycol/Electrolytes (Miralax*) 17 gm PO BEDTIME PRN PRN Reason: CONSTIPATION Last Admin: 08/30/17 23:37 Dose: 17 gm Tramadol HCl (Ultram*) 50 mg PO Q6H PRN PRN Reason: PAIN Last Admin: 08/25/17 22:50 Dose: 50 mg Vital Signs - 8 hr 08/31/17 05:14 Blood Pressure 152/65 (mmHg) Oxygen Devices in Use Now: None Appearance: Alert, in a chair. In good spirits. Looks comfortable. Eyes: No Scleral Icterus Respiratory: Symmetrical Chest Expansion and Respiratory Effort, Clear to Auscultation, Clear to Percussion Cardiovascular: NL Sounds; No Murmurs; No JVD, RRR, No Edema, - Abdominal: - - Soft, nl BS. ?? abdominal tenderness Extremities: No Edema, No Clubbing, Cyanosis, - Skin: No Rash or Ulcers, No Nodules or Sclerosis, - Neurological: NL Sensation - Alert, disoriented, poor verbal skills. No tremor. Result Diagrams: 08/30/17 05:35 08/31/17 08:16 Additional Lab and Data: Lab Results 08/23/17 08/23/17 08/23/17 Range/Units 11:35 11:35 11:35 WBC 15.0 H (3.5-10.8) 10^3/ul RBC 4.55 (4.0-5.4) 10^6/ul Hgb 13.1 (12.0-16.0) g/dl Hct 39 (35-47) % MCV 85 (80-97) fL MCH 29 (27-31) pg MCHC 34 (31-36) g/dl RDW 15 (10.5-15) % Plt Count 341 (150-450) 10^3/ul MPV 8 (7.4-10.4) um3 Neut % (Auto) 91.0 H (38-83) % Lymph % (Auto) 3.6 L (25-47) % Randall % (Auto) 4.9 (1-9) % Eos % (Auto) 0 (0-6) % Baso % (Auto) 0.5 (0-2) % Absolute Neuts (auto) 13.7 H (1.5-7.7) 10^3/ul Absolute Lymphs (auto) 0.5 L (1.0-4.8) 10^3/ul Absolute Monos (auto) 0.7 (0-0.8) 10^3/ul Absolute Eos (auto) 0 (0-0.6) 10^3/ul Absolute Basos (auto) 0.1 (0-0.2) 10^3/ul Absolute Nucleated RBC 0 10^3/ul Nucleated RBC % 0 APTT (26.0-36.3) seconds Sodium 129 L (133-145) mmol/L Potassium 3.1 L (3.5-5.0) mmol/L Chloride 92 L (101-111) mmol/L Carbon Dioxide 24 (22-32) mmol/L Anion Gap 13 H (2-11) mmol/L BUN 24 (6-24) mg/dL Creatinine 0.87 (0.51-0.95) mg/dL Est GFR ( Amer) 78.8 (>60) Est GFR (Non-Af Amer) 61.3 (>60) BUN/Creatinine Ratio 27.6 H (8-20) Glucose 91 (70-100) mg/dL Lactic Acid 0.9 (0.5-2.0) mmol/L Calcium 9.5 (8.6-10.3) mg/dL Magnesium 1.9 (1.9-2.7) mg/dL Total Bilirubin 2.70 H (0.2-1.0) mg/dL AST 32 (13-39) U/L ALT 12 (7-52) U/L Alkaline Phosphatase 59 (34-104) U/L Ammonia Total Creatine Kinase 631 H (10-223) U/L Troponin I 0.19 H* (<0.04) ng/mL C-Reactive Protein 147.52 H (< 5.00) mg/L B-Natriuretic Peptide ( - 100) pg/mL Total Protein 7.0 (6.4-8.9) g/dL Albumin 3.5 (3.2-5.2) g/dL Globulin 3.5 (2-4) g/dL Albumin/Globulin Ratio 1.0 (1-3) Lipase 11 (11.0-82.0) U/L Urine Color Urine Appearance Urine pH (5-9) Ur Specific [place] (1.010-1.030) Urine Protein (Negative) Urine Ketones (Negative) Urine Blood (Negative) Urine Nitrate (Negative) Urine Bilirubin (Negative) Urine Urobilinogen (Negative) Ur Leukocyte Esterase (Negative) Urine WBC (Auto) (Absent) Urine RBC (Auto) (Absent) Ur Squamous Epith Cells (Absent) Urine Bacteria (Absent) Hyaline Casts (Absent) Urine Glucose (Negative) 08/23/17 08/23/17 08/23/17 Range/Units 11:35 11:35 12:05 WBC (3.5-10.8) 10^3/ul RBC (4.0-5.4) 10^6/ul Hgb (12.0-16.0) g/dl Hct (35-47) % MCV (80-97) fL MCH (27-31) pg MCHC (31-36) g/dl RDW (10.5-15) % Plt Count (150-450) 10^3/ul MPV (7.4-10.4) um3 Neut % (Auto) (38-83) % Lymph % (Auto) (25-47) % Randall % (Auto) (1-9) % Eos % (Auto) (0-6) % Baso % (Auto) (0-2) % Absolute Neuts (auto) (1.5-7.7) 10^3/ul Absolute Lymphs (auto) (1.0-4.8) 10^3/ul Absolute Monos (auto) (0-0.8) 10^3/ul Absolute Eos (auto) (0-0.6) 10^3/ul Absolute Basos (auto) (0-0.2) 10^3/ul Absolute Nucleated RBC 10^3/ul Nucleated RBC % APTT 27.7 (26.0-36.3) seconds Sodium (133-145) mmol/L Potassium (3.5-5.0) mmol/L Chloride (101-111) mmol/L Carbon Dioxide (22-32) mmol/L Anion Gap (2-11) mmol/L BUN (6-24) mg/dL Creatinine (0.51-0.95) mg/dL Est GFR ( Amer) (>60) Est GFR (Non-Af Amer) (>60) BUN/Creatinine Ratio (8-20) Glucose (70-100) mg/dL Lactic Acid (0.5-2.0) mmol/L Calcium (8.6-10.3) mg/dL Magnesium (1.9-2.7) mg/dL Total Bilirubin (0.2-1.0) mg/dL AST (13-39) U/L ALT (7-52) U/L Alkaline Phosphatase (34-104) U/L Ammonia TNP Total Creatine Kinase (10-223) U/L Troponin I (<0.04) ng/mL C-Reactive Protein (< 5.00) mg/L B-Natriuretic Peptide 287 H ( - 100) pg/mL Total Protein (6.4-8.9) g/dL Albumin (3.2-5.2) g/dL Globulin (2-4) g/dL Albumin/Globulin Ratio (1-3) Lipase (11.0-82.0) U/L Urine Color Yellow Urine Appearance Cloudy Urine pH 6.0 (5-9) Ur Specific [place] 1.020 (1.010-1.030) Urine Protein 2+(100 mg/dl) H (Negative) Urine Ketones 2+ H (Negative) Urine Blood 1+ H (Negative) Urine Nitrate Negative (Negative) Urine Bilirubin Negative (Negative) Urine Urobilinogen Negative (Negative) Ur Leukocyte Esterase Negative (Negative) Urine WBC (Auto) Trace(0-5/hpf) (Absent) Urine RBC (Auto) 3+(>10/hpf) H (Absent) Ur Squamous Epith Cells Present H (Absent) Urine Bacteria Absent (Absent) Hyaline Casts Present H (Absent) Urine Glucose Negative (Negative) 08/23/17 Range/Units 12:29 WBC (3.5-10.8) 10^3/ul RBC (4.0-5.4) 10^6/ul Hgb (12.0-16.0) g/dl Hct (35-47) % MCV (80-97) fL MCH (27-31) pg MCHC (31-36) g/dl RDW (10.5-15) % Plt Count (150-450) 10^3/ul MPV (7.4-10.4) um3 Neut % (Auto) (38-83) % Lymph % (Auto) (25-47) % Randall % (Auto) (1-9) % Eos % (Auto) (0-6) % Baso % (Auto) (0-2) % Absolute Neuts (auto) (1.5-7.7) 10^3/ul Absolute Lymphs (auto) (1.0-4.8) 10^3/ul Absolute Monos (auto) (0-0.8) 10^3/ul Absolute Eos (auto) (0-0.6) 10^3/ul Absolute Basos (auto) (0-0.2) 10^3/ul Absolute Nucleated RBC 10^3/ul Nucleated RBC % APTT (26.0-36.3) seconds Sodium (133-145) mmol/L Potassium (3.5-5.0) mmol/L Chloride (101-111) mmol/L Carbon Dioxide (22-32) mmol/L Anion Gap (2-11) mmol/L BUN (6-24) mg/dL Creatinine (0.51-0.95) mg/dL Est GFR ( Amer) (>60) Est GFR (Non-Af Amer) (>60) BUN/Creatinine Ratio (8-20) Glucose (70-100) mg/dL Lactic Acid (0.5-2.0) mmol/L Calcium (8.6-10.3) mg/dL Magnesium (1.9-2.7) mg/dL Total Bilirubin (0.2-1.0) mg/dL AST (13-39) U/L ALT (7-52) U/L Alkaline Phosphatase (34-104) U/L Ammonia 38 Total Creatine Kinase (10-223) U/L Troponin I (<0.04) ng/mL C-Reactive Protein (< 5.00) mg/L B-Natriuretic Peptide ( - 100) pg/mL Total Protein (6.4-8.9) g/dL Albumin (3.2-5.2) g/dL Globulin (2-4) g/dL Albumin/Globulin Ratio (1-3) Lipase (11.0-82.0) U/L Urine Color Urine Appearance Urine pH (5-9) Ur Specific [place] (1.010-1.030) Urine Protein (Negative) Urine Ketones (Negative) Urine Blood (Negative) Urine Nitrate (Negative) Urine Bilirubin (Negative) Urine Urobilinogen (Negative) Ur Leukocyte Esterase (Negative) Urine WBC (Auto) (Absent) Urine RBC (Auto) (Absent) Ur Squamous Epith Cells (Absent) Urine Bacteria (Absent) Hyaline Casts (Absent) Urine Glucose (Negative) Microbiology and Other Data: Microbiology 08/24/17 11:30 Urine Culture - Final Urine No Growth (<1,000 CFU/mL) Assess/Plan/Problems-Billing Assessment: - Patient Problems (1) Dementia Current Visit: Yes Status: Acute Code(s): F03.90 - UNSPECIFIED DEMENTIA WITHOUT BEHAVIORAL DISTURBANCE SNOMED Code(s): 88907641 Comment: 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 Received quetiapine 25 mg hs 08/25, will decrease to 12. 5 mg. OT/ PT eval. MRI showed only chronic small vessel disease. Stop quetiapine 08/29, not clear if it is of benefit. Continue PRN IM 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 Three calorie counts 08/26 through 08/28 were 510, 400, 440 calories. Prealbumin was 6 on 08/31. I spoke at [facility] with her daughter on 08/31 about end of life care. Deb agrees on comfort care but is not ready to stop IV fluids yet. (2) Urinary retention Current Visit: Yes Status: Acute Code(s): R33.9 - RETENTION OF URINE, UNSPECIFIED SNOMED Code(s): 699436929 Comment: Patient had straight cath in ED with 600 ml drained, then Yung inserted. Urine C&S no growth. She did not get an antibiotic. (3) Constipation Current Visit: Yes Status: Acute Code(s): K59.00 - CONSTIPATION, UNSPECIFIED SNOMED Code(s): 51451919 Comment: BM after 300 ml magnesium citrate. PEG 17 gm q hs. (4) Vascular dementia Current Visit: Yes Status: Acute Code(s): F01.50 - VASCULAR DEMENTIA WITHOUT BEHAVIORAL DISTURBANCE SNOMED Code(s): 086634950 Comment: MRI supports findings of likely vascular dementia, and her history of a sudden decline recently fits the picture of a "stepwise" decline. Still, we will rule out a infectious or metabolic etiology, as her daughter is not yet ready for a "comfort care" approach until we do so. (5) Colonic diverticular abscess Current Visit: Yes Status: Acute Code(s): K57.20 - DVTRCLI OF LG INT W PERFORATION AND ABSCESS W/O BLEEDING SNOMED Code(s): 181755895 Comment: Continue pip/quique. US abd pending showed fluid collection external to the bowel. Aspiration on 08/29 yielded 1 ml of purulent thick fluid. Injection of contrast was done. Discussed with Dr. Goetz 08/29--pt not a surgical candidate. I would stop antibiotic on 09/02 if not sooner. Status and Disposition: awaiting stool studies and CT abd/pelvis. If unremarkable, her symptoms are likely explained by worsening vascular dementia, and we will proceed with hospice referrals.
[2017-09-01] MEDS: Haloperidol INJ IV/IM* 5 MG/ML AMP IM PRN (01:17)
[2017-09-01] MEDS: ZOSYN 3.375 GM Q8H per EXTENDED INFUSION IVPB SCH ×4 (05:01→12:44)
[2017-09-01] MEDS: Clotrimazole TROCHE* 10 MG TROCHE PO SCH ×5 (06:12→21:28)
[2017-09-01] MEDS: NS 0.9% 1000 ML* 1,000 ML IV SCH (12:03)
[2017-09-01] MEDS ORDERED: Magnesium CITRATE* 300 ML BTL PO ONE (13:34)
--- NOTE | 2017-09-01 16:03 | PN ---
Subjective Date of Service: 09/01/17 Interval History: Pt seen with daughter present Pt has no complaints eating very little denies abdominal pain Family History: Unchanged from Admission Social History: Unchanged from Admission Past Medical History: Unchanged from Admission Objective Active Medications: Acetaminophen (Tylenol Tab*) 650 mg PO Q6H PRN PRN Reason: FEVER/PAIN Last Admin: 08/29/17 18:20 Dose: 650 mg Ciprofloxacin (Cipro Tab*) 500 mg PO Q12HR JOSE M Clotrimazole (Mycelex Gabby*) 10 mg PO FIVE TIMES DAILY JOSE M Last Admin: 09/01/17 12:45 Dose: 10 mg Haloperidol Lactate (Haldol Inj Iv/Im*) 0.5 mg IM Q6H PRN PRN Reason: AGITATION Last Admin: 09/01/17 01:17 Dose: 0.5 mg Metronidazole (Flagyl Tab*) 500 mg PO TID [facility] Polyethylene Glycol/Electrolytes (Miralax*) 17 gm PO BEDTIME PRN PRN Reason: CONSTIPATION Last Admin: 08/30/17 23:37 Dose: 17 gm Tramadol HCl (Ultram*) 50 mg PO Q6H PRN PRN Reason: PAIN Last Admin: 08/25/17 22:50 Dose: 50 mg Vital Signs - 8 hr 09/01/17 08:00 Respiratory 20 Rate Oxygen Devices in Use Now: None Appearance: thin, NAD Eyes: No Scleral Icterus, PERRLA Ears/Nose/Mouth/Throat: - - dry MM Neck: NL Appearance and Movements; NL JVP, Trachea Midline Respiratory: Symmetrical Chest Expansion and Respiratory Effort Cardiovascular: RRR Abdominal: - - TTP throughout, no rebound/guarding Neurological: - - AOx1 to self Result Diagrams: 08/30/17 05:35 08/31/17 08:16 Additional Lab and Data: Lab Results 08/23/17 08/23/17 08/23/17 Range/Units 11:35 11:35 11:35 WBC 15.0 H (3.5-10.8) 10^3/ul RBC 4.55 (4.0-5.4) 10^6/ul Hgb 13.1 (12.0-16.0) g/dl Hct 39 (35-47) % MCV 85 (80-97) fL MCH 29 (27-31) pg MCHC 34 (31-36) g/dl RDW 15 (10.5-15) % Plt Count 341 (150-450) 10^3/ul MPV 8 (7.4-10.4) um3 Neut % (Auto) 91.0 H (38-83) % Lymph % (Auto) 3.6 L (25-47) % [place] % (Auto) 4.9 (1-9) % Eos % (Auto) 0 (0-6) % Baso % (Auto) 0.5 (0-2) % Absolute Neuts (auto) 13.7 H (1.5-7.7) 10^3/ul Absolute Lymphs (auto) 0.5 L (1.0-4.8) 10^3/ul Absolute Monos (auto) 0.7 (0-0.8) 10^3/ul Absolute Eos (auto) 0 (0-0.6) 10^3/ul Absolute Basos (auto) 0.1 (0-0.2) 10^3/ul Absolute Nucleated RBC 0 10^3/ul Nucleated RBC % 0 APTT (26.0-36.3) seconds Sodium 129 L (133-145) mmol/L Potassium 3.1 L (3.5-5.0) mmol/L Chloride 92 L (101-111) mmol/L Carbon Dioxide 24 (22-32) mmol/L Anion Gap 13 H (2-11) mmol/L BUN 24 (6-24) mg/dL Creatinine 0.87 (0.51-0.95) mg/dL Est GFR ( Amer) 78.8 (>60) Est GFR (Non-Af Amer) 61.3 (>60) BUN/Creatinine Ratio 27.6 H (8-20) Glucose 91 (70-100) mg/dL Lactic Acid 0.9 (0.5-2.0) mmol/L Calcium 9.5 (8.6-10.3) mg/dL Magnesium 1.9 (1.9-2.7) mg/dL Total Bilirubin 2.70 H (0.2-1.0) mg/dL AST 32 (13-39) U/L ALT 12 (7-52) U/L Alkaline Phosphatase 59 (34-104) U/L Ammonia Total Creatine Kinase 631 H (10-223) U/L Troponin I 0.19 H* (<0.04) ng/mL C-Reactive Protein 147.52 H (< 5.00) mg/L B-Natriuretic Peptide ( - 100) pg/mL Total Protein 7.0 (6.4-8.9) g/dL Albumin 3.5 (3.2-5.2) g/dL Globulin 3.5 (2-4) g/dL Albumin/Globulin Ratio 1.0 (1-3) Lipase 11 (11.0-82.0) U/L Urine Color Urine Appearance Urine pH (5-9) Ur Specific [place] (1.010-1.030) Urine Protein (Negative) Urine Ketones (Negative) Urine Blood (Negative) Urine Nitrate (Negative) Urine Bilirubin (Negative) Urine Urobilinogen (Negative) Ur Leukocyte Esterase (Negative) Urine WBC (Auto) (Absent) Urine RBC (Auto) (Absent) Ur Squamous Epith Cells (Absent) Urine Bacteria (Absent) Hyaline Casts (Absent) Urine Glucose (Negative) 08/23/17 08/23/17 08/23/17 Range/Units 11:35 11:35 12:05 WBC (3.5-10.8) 10^3/ul RBC (4.0-5.4) 10^6/ul Hgb (12.0-16.0) g/dl Hct (35-47) % MCV (80-97) fL MCH (27-31) pg MCHC (31-36) g/dl RDW (10.5-15) % Plt Count (150-450) 10^3/ul MPV (7.4-10.4) um3 Neut % (Auto) (38-83) % Lymph % (Auto) (25-47) % [place] % (Auto) (1-9) % Eos % (Auto) (0-6) % Baso % (Auto) (0-2) % Absolute Neuts (auto) (1.5-7.7) 10^3/ul Absolute Lymphs (auto) (1.0-4.8) 10^3/ul Absolute Monos (auto) (0-0.8) 10^3/ul Absolute Eos (auto) (0-0.6) 10^3/ul Absolute Basos (auto) (0-0.2) 10^3/ul Absolute Nucleated RBC 10^3/ul Nucleated RBC % APTT 27.7 (26.0-36.3) seconds Sodium (133-145) mmol/L Potassium (3.5-5.0) mmol/L Chloride (101-111) mmol/L Carbon Dioxide (22-32) mmol/L Anion Gap (2-11) mmol/L BUN (6-24) mg/dL Creatinine (0.51-0.95) mg/dL Est GFR ( Amer) (>60) Est GFR (Non-Af Amer) (>60) BUN/Creatinine Ratio (8-20) Glucose (70-100) mg/dL Lactic Acid (0.5-2.0) mmol/L Calcium (8.6-10.3) mg/dL Magnesium (1.9-2.7) mg/dL Total Bilirubin (0.2-1.0) mg/dL AST (13-39) U/L ALT (7-52) U/L Alkaline Phosphatase (34-104) U/L Ammonia TNP Total Creatine Kinase (10-223) U/L Troponin I (<0.04) ng/mL C-Reactive Protein (< 5.00) mg/L B-Natriuretic Peptide 287 H ( - 100) pg/mL Total Protein (6.4-8.9) g/dL Albumin (3.2-5.2) g/dL Globulin (2-4) g/dL Albumin/Globulin Ratio (1-3) Lipase (11.0-82.0) U/L Urine Color Yellow Urine Appearance Cloudy Urine pH 6.0 (5-9) Ur Specific [place] 1.020 (1.010-1.030) Urine Protein 2+(100 mg/dl) H (Negative) Urine Ketones 2+ H (Negative) Urine Blood 1+ H (Negative) Urine Nitrate Negative (Negative) Urine Bilirubin Negative (Negative) Urine Urobilinogen Negative (Negative) Ur Leukocyte Esterase Negative (Negative) Urine WBC (Auto) Trace(0-5/hpf) (Absent) Urine RBC (Auto) 3+(>10/hpf) H (Absent) Ur Squamous Epith Cells Present H (Absent) Urine Bacteria Absent (Absent) Hyaline Casts Present H (Absent) Urine Glucose Negative (Negative) 08/23/17 Range/Units 12:29 WBC (3.5-10.8) 10^3/ul RBC (4.0-5.4) 10^6/ul Hgb (12.0-16.0) g/dl Hct (35-47) % MCV (80-97) fL MCH (27-31) pg MCHC (31-36) g/dl RDW (10.5-15) % Plt Count (150-450) 10^3/ul MPV (7.4-10.4) um3 Neut % (Auto) (38-83) % Lymph % (Auto) (25-47) % [place] % (Auto) (1-9) % Eos % (Auto) (0-6) % Baso % (Auto) (0-2) % Absolute Neuts (auto) (1.5-7.7) 10^3/ul Absolute Lymphs (auto) (1.0-4.8) 10^3/ul Absolute Monos (auto) (0-0.8) 10^3/ul Absolute Eos (auto) (0-0.6) 10^3/ul Absolute Basos (auto) (0-0.2) 10^3/ul Absolute Nucleated RBC 10^3/ul Nucleated RBC % APTT (26.0-36.3) seconds Sodium (133-145) mmol/L Potassium (3.5-5.0) mmol/L Chloride (101-111) mmol/L Carbon Dioxide (22-32) mmol/L Anion Gap (2-11) mmol/L BUN (6-24) mg/dL Creatinine (0.51-0.95) mg/dL Est GFR ( Amer) (>60) Est GFR (Non-Af Amer) (>60) BUN/Creatinine Ratio (8-20) Glucose (70-100) mg/dL Lactic Acid (0.5-2.0) mmol/L Calcium (8.6-10.3) mg/dL Magnesium (1.9-2.7) mg/dL Total Bilirubin (0.2-1.0) mg/dL AST (13-39) U/L ALT (7-52) U/L Alkaline Phosphatase (34-104) U/L Ammonia 38 Total Creatine Kinase (10-223) U/L Troponin I (<0.04) ng/mL C-Reactive Protein (< 5.00) mg/L B-Natriuretic Peptide ( - 100) pg/mL Total Protein (6.4-8.9) g/dL Albumin (3.2-5.2) g/dL Globulin (2-4) g/dL Albumin/Globulin Ratio (1-3) Lipase (11.0-82.0) U/L Urine Color Urine Appearance Urine pH (5-9) Ur Specific [place] (1.010-1.030) Urine Protein (Negative) Urine Ketones (Negative) Urine Blood (Negative) Urine Nitrate (Negative) Urine Bilirubin (Negative) Urine Urobilinogen (Negative) Ur Leukocyte Esterase (Negative) Urine WBC (Auto) (Absent) Urine RBC (Auto) (Absent) Ur Squamous Epith Cells (Absent) Urine Bacteria (Absent) Hyaline Casts (Absent) Urine Glucose (Negative) Microbiology and Other Data: Microbiology 08/24/17 11:30 Urine Culture - Final Urine No Growth (<1,000 CFU/mL) Assess/Plan/Problems-Billing Assessment: 87 yo F p/w altered mental status ultimately found with diverticular abscess vs phlegmon s/p failure percutaneous drainage - Patient Problems (1) Colonic diverticular abscess Comment: IV removed by pt. Daughter would like to continue abx but not replace IV Aspiration on 08/29 yielded 1 ml of purulent thick fluid. Dr. Yoder discussed with Dr. Goetz 08/29--pt not a surgical candidate. (2) Dementia Comment: Behavior disturbances/sundowning Three calorie counts 08/26 through 08/28 were 510, 400, 440 calories. Prealbumin was 6 on 08/31. Daughter agrees to comfort care stating "above all else I want her to be comfortable" She would like to continue PO abx. 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 She would like another hospice referral. She does not think she can care for her mother at home. (3) Urinary retention Current Visit: Yes Status: Acute Code(s): R33.9 - RETENTION OF URINE, UNSPECIFIED SNOMED Code(s): 694862036 Comment: Patient had straight cath in ED with 600 ml drained, then Yung inserted. Urine C&S no growth. She did not get an antibiotic. (4) DVT prophylaxis Comment: none for comfort Status and Disposition: plan to NH potentially with hospice
[2017-09-01] MEDS: Polyethylene Glycol 3350* 17 GM PACKET PO PRN (21:27)
[2017-09-01] MEDS: metroNIDAZOLE TAB* 250 MG PO SCH (21:27)
[2017-09-01] MEDS: Ciprofloxacin TAB* 500 MG PO SCH (21:27)
[2017-09-02] MEDS: Clotrimazole TROCHE* 10 MG TROCHE PO SCH ×6 (05:39→20:03)
--- NOTE | 2017-09-02 09:47 | PN ---
Subjective Date of Service: 09/02/17 Interval History: Patient without complaints Family History: Unchanged from Admission Social History: Unchanged from Admission Past Medical History: Unchanged from Admission Objective Active Medications: Acetaminophen (Tylenol Tab*) 650 mg PO Q6H PRN PRN Reason: FEVER/PAIN Last Admin: 08/29/17 18:20 Dose: 650 mg Ciprofloxacin (Cipro Tab*) 500 mg PO Q12HR [facility] Last Admin: 09/01/17 21:27 Dose: 500 mg Clotrimazole (Mycelex Gabby*) 10 mg PO FIVE TIMES DAILY [facility] Last Admin: 09/02/17 05:44 Dose: Not Given Haloperidol Lactate (Haldol Inj Iv/Im*) 0.5 mg IM Q6H PRN PRN Reason: AGITATION Last Admin: 09/01/17 01:17 Dose: 0.5 mg Metronidazole (Flagyl Tab*) 500 mg PO TID [facility] Last Admin: 09/01/17 21:27 Dose: 500 mg Polyethylene Glycol/Electrolytes (Miralax*) 17 gm PO BEDTIME PRN PRN Reason: CONSTIPATION Last Admin: 09/01/17 21:27 Dose: 17 gm Vital Signs - 8 hr 09/02/17 09/02/17 09/02/17 03:14 07:49 08:32 Temperature 96.0 F 98.0 F Pulse Rate 76 73 Respiratory 18 18 18 Rate Blood Pressure 151/62 141/61 (mmHg) O2 Sat by Pulse 96 96 Oximetry Oxygen Devices in Use Now: None Appearance: stated age, NAD Eyes: No Scleral Icterus, PERRLA Ears/Nose/Mouth/Throat: - - dry MM Neck: NL Appearance and Movements; NL JVP, Trachea Midline Respiratory: Symmetrical Chest Expansion and Respiratory Effort Cardiovascular: RRR Abdominal: - - tender over IR access Neurological: - - AOx1 to self Result Diagrams: 08/30/17 05:35 08/31/17 08:16 Additional Lab and Data: Lab Results 08/23/17 08/23/17 08/23/17 Range/Units 11:35 11:35 11:35 WBC 15.0 H (3.5-10.8) 10^3/ul RBC 4.55 (4.0-5.4) 10^6/ul Hgb 13.1 (12.0-16.0) g/dl Hct 39 (35-47) % MCV 85 (80-97) fL MCH 29 (27-31) pg MCHC 34 (31-36) g/dl RDW 15 (10.5-15) % Plt Count 341 (150-450) 10^3/ul MPV 8 (7.4-10.4) um3 Neut % (Auto) 91.0 H (38-83) % Lymph % (Auto) 3.6 L (25-47) % Sibley % (Auto) 4.9 (1-9) % Eos % (Auto) 0 (0-6) % Baso % (Auto) 0.5 (0-2) % Absolute Neuts (auto) 13.7 H (1.5-7.7) 10^3/ul Absolute Lymphs (auto) 0.5 L (1.0-4.8) 10^3/ul Absolute Monos (auto) 0.7 (0-0.8) 10^3/ul Absolute Eos (auto) 0 (0-0.6) 10^3/ul Absolute Basos (auto) 0.1 (0-0.2) 10^3/ul Absolute Nucleated RBC 0 10^3/ul Nucleated RBC % 0 APTT (26.0-36.3) seconds Sodium 129 L (133-145) mmol/L Potassium 3.1 L (3.5-5.0) mmol/L Chloride 92 L (101-111) mmol/L Carbon Dioxide 24 (22-32) mmol/L Anion Gap 13 H (2-11) mmol/L BUN 24 (6-24) mg/dL Creatinine 0.87 (0.51-0.95) mg/dL Est GFR ( Amer) 78.8 (>60) Est GFR (Non-Af Amer) 61.3 (>60) BUN/Creatinine Ratio 27.6 H (8-20) Glucose 91 (70-100) mg/dL Lactic Acid 0.9 (0.5-2.0) mmol/L Calcium 9.5 (8.6-10.3) mg/dL Magnesium 1.9 (1.9-2.7) mg/dL Total Bilirubin 2.70 H (0.2-1.0) mg/dL AST 32 (13-39) U/L ALT 12 (7-52) U/L Alkaline Phosphatase 59 (34-104) U/L Ammonia Total Creatine Kinase 631 H (10-223) U/L Troponin I 0.19 H* (<0.04) ng/mL C-Reactive Protein 147.52 H (< 5.00) mg/L B-Natriuretic Peptide ( - 100) pg/mL Total Protein 7.0 (6.4-8.9) g/dL Albumin 3.5 (3.2-5.2) g/dL Globulin 3.5 (2-4) g/dL Albumin/Globulin Ratio 1.0 (1-3) Lipase 11 (11.0-82.0) U/L Urine Color Urine Appearance Urine pH (5-9) Ur Specific [place] (1.010-1.030) Urine Protein (Negative) Urine Ketones (Negative) Urine Blood (Negative) Urine Nitrate (Negative) Urine Bilirubin (Negative) Urine Urobilinogen (Negative) Ur Leukocyte Esterase (Negative) Urine WBC (Auto) (Absent) Urine RBC (Auto) (Absent) Ur Squamous Epith Cells (Absent) Urine Bacteria (Absent) Hyaline Casts (Absent) Urine Glucose (Negative) 08/23/17 08/23/17 08/23/17 Range/Units 11:35 11:35 12:05 WBC (3.5-10.8) 10^3/ul RBC (4.0-5.4) 10^6/ul Hgb (12.0-16.0) g/dl Hct (35-47) % MCV (80-97) fL MCH (27-31) pg MCHC (31-36) g/dl RDW (10.5-15) % Plt Count (150-450) 10^3/ul MPV (7.4-10.4) um3 Neut % (Auto) (38-83) % Lymph % (Auto) (25-47) % Sibley % (Auto) (1-9) % Eos % (Auto) (0-6) % Baso % (Auto) (0-2) % Absolute Neuts (auto) (1.5-7.7) 10^3/ul Absolute Lymphs (auto) (1.0-4.8) 10^3/ul Absolute Monos (auto) (0-0.8) 10^3/ul Absolute Eos (auto) (0-0.6) 10^3/ul Absolute Basos (auto) (0-0.2) 10^3/ul Absolute Nucleated RBC 10^3/ul Nucleated RBC % APTT 27.7 (26.0-36.3) seconds Sodium (133-145) mmol/L Potassium (3.5-5.0) mmol/L Chloride (101-111) mmol/L Carbon Dioxide (22-32) mmol/L Anion Gap (2-11) mmol/L BUN (6-24) mg/dL Creatinine (0.51-0.95) mg/dL Est GFR ( Amer) (>60) Est GFR (Non-Af Amer) (>60) BUN/Creatinine Ratio (8-20) Glucose (70-100) mg/dL Lactic Acid (0.5-2.0) mmol/L Calcium (8.6-10.3) mg/dL Magnesium (1.9-2.7) mg/dL Total Bilirubin (0.2-1.0) mg/dL AST (13-39) U/L ALT (7-52) U/L Alkaline Phosphatase (34-104) U/L Ammonia TNP Total Creatine Kinase (10-223) U/L Troponin I (<0.04) ng/mL C-Reactive Protein (< 5.00) mg/L B-Natriuretic Peptide 287 H ( - 100) pg/mL Total Protein (6.4-8.9) g/dL Albumin (3.2-5.2) g/dL Globulin (2-4) g/dL Albumin/Globulin Ratio (1-3) Lipase (11.0-82.0) U/L Urine Color Yellow Urine Appearance Cloudy Urine pH 6.0 (5-9) Ur Specific [place] 1.020 (1.010-1.030) Urine Protein 2+(100 mg/dl) H (Negative) Urine Ketones 2+ H (Negative) Urine Blood 1+ H (Negative) Urine Nitrate Negative (Negative) Urine Bilirubin Negative (Negative) Urine Urobilinogen Negative (Negative) Ur Leukocyte Esterase Negative (Negative) Urine WBC (Auto) Trace(0-5/hpf) (Absent) Urine RBC (Auto) 3+(>10/hpf) H (Absent) Ur Squamous Epith Cells Present H (Absent) Urine Bacteria Absent (Absent) Hyaline Casts Present H (Absent) Urine Glucose Negative (Negative) 08/23/17 Range/Units 12:29 WBC (3.5-10.8) 10^3/ul RBC (4.0-5.4) 10^6/ul Hgb (12.0-16.0) g/dl Hct (35-47) % MCV (80-97) fL MCH (27-31) pg MCHC (31-36) g/dl RDW (10.5-15) % Plt Count (150-450) 10^3/ul MPV (7.4-10.4) um3 Neut % (Auto) (38-83) % Lymph % (Auto) (25-47) % Sibley % (Auto) (1-9) % Eos % (Auto) (0-6) % Baso % (Auto) (0-2) % Absolute Neuts (auto) (1.5-7.7) 10^3/ul Absolute Lymphs (auto) (1.0-4.8) 10^3/ul Absolute Monos (auto) (0-0.8) 10^3/ul Absolute Eos (auto) (0-0.6) 10^3/ul Absolute Basos (auto) (0-0.2) 10^3/ul Absolute Nucleated RBC 10^3/ul Nucleated RBC % APTT (26.0-36.3) seconds Sodium (133-145) mmol/L Potassium (3.5-5.0) mmol/L Chloride (101-111) mmol/L Carbon Dioxide (22-32) mmol/L Anion Gap (2-11) mmol/L BUN (6-24) mg/dL Creatinine (0.51-0.95) mg/dL Est GFR ( Amer) (>60) Est GFR (Non-Af Amer) (>60) BUN/Creatinine Ratio (8-20) Glucose (70-100) mg/dL Lactic Acid (0.5-2.0) mmol/L Calcium (8.6-10.3) mg/dL Magnesium (1.9-2.7) mg/dL Total Bilirubin (0.2-1.0) mg/dL AST (13-39) U/L ALT (7-52) U/L Alkaline Phosphatase (34-104) U/L Ammonia 38 Total Creatine Kinase (10-223) U/L Troponin I (<0.04) ng/mL C-Reactive Protein (< 5.00) mg/L B-Natriuretic Peptide ( - 100) pg/mL Total Protein (6.4-8.9) g/dL Albumin (3.2-5.2) g/dL Globulin (2-4) g/dL Albumin/Globulin Ratio (1-3) Lipase (11.0-82.0) U/L Urine Color Urine Appearance Urine pH (5-9) Ur Specific [place] (1.010-1.030) Urine Protein (Negative) Urine Ketones (Negative) Urine Blood (Negative) Urine Nitrate (Negative) Urine Bilirubin (Negative) Urine Urobilinogen (Negative) Ur Leukocyte Esterase (Negative) Urine WBC (Auto) (Absent) Urine RBC (Auto) (Absent) Ur Squamous Epith Cells (Absent) Urine Bacteria (Absent) Hyaline Casts (Absent) Urine Glucose (Negative) Microbiology and Other Data: Microbiology 08/24/17 11:30 Urine Culture - Final Urine No Growth (<1,000 CFU/mL) Assess/Plan/Problems-Billing Assessment: 87 yo F p/w altered mental status ultimately found with diverticular abscess s/ p minimal percutaneous drainage - Patient Problems (1) Colonic diverticular abscess Comment: IV removed by pt. 09/01; Daughter would like to continue abx but not replace IV Aspiration on 08/29 yielded 1 ml of purulent thick fluid now with e. coli/ pseudomonas/proteus c/w mega and flagyl Dr. Yoder discussed with Dr. Goetz 08/29--pt not a surgical candidate. (2) Dementia Comment: Behavior disturbances/sundowning Three calorie counts 08/26 through 08/28 were 510, 400, 440 calories. Prealbumin was 6 on 08/31. Daughter agrees to comfort care stating "above all else I want her to be comfortable" She would like to continue PO abx. 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 She would like another hospice referral. She does not think she can care for her mother at home and [facility] (3) Urinary retention Current Visit: Yes Status: Acute Code(s): R33.9 - RETENTION OF URINE, UNSPECIFIED SNOMED Code(s): 749526129 Comment: Patient had straight cath in ED with 600 ml drained, then Yung inserted. Urine C&S no growth. (4) DVT prophylaxis Comment: none for comfort Status and Disposition: plan to NH potentially with hospice
[2017-09-02] MEDS: metroNIDAZOLE TAB* 250 MG PO SCH ×3 (11:14→19:35)
[2017-09-02] MEDS: Ciprofloxacin TAB* 500 MG PO SCH ×2 (11:15→19:35)
[2017-09-02] MEDS: Acetaminophen TAB* 325 MG PO PRN (22:50)
[2017-09-03] MEDS: Clotrimazole TROCHE* 10 MG TROCHE PO SCH ×2 (05:55→08:52)
[2017-09-03 07:42] VITALS: BP 137/57
[2017-09-03] MEDS: Ciprofloxacin TAB* 500 MG PO SCH (08:52)
[2017-09-03] MEDS: metroNIDAZOLE TAB* 250 MG PO SCH (08:52)
--- NOTE | 2017-09-03 10:49 | PN ---
Progress Note - Progress Note Date of Service: 09/03/17 Note: Asked to see this patient to evaluate for hospice eligibility. I saw this patient on 08/27/17, and since then she was discovered to have a LLQ phlegmon, which was aspirated for about 1 cc of purulent material that has grown out multiple organisms, including e.coli, Proteus, Pseudomonas, Clostridium. It was not possible to drain the lesion, and the patient is not an operative candidate. She will remain on p.o. antibiotics, but her daughter is still in agreement with the MOLST decisions that were made at my earlier visit, essentially specifying comfort measures. She is scheduled to go to [facility] rehab, although she is not eating or drinking anything and claims today that she just has no appetite at all. She has a limited prognosis, and will be eligible for hospice services when she fails to rehabilitate. I explained to the daughter that the patient can not be on rehab and hospice at the same time, and I believe she understood. Thanks.
--- NOTE | 2017-09-03 11:01 | DS ---
CC: Kimberli Hollis * DATE OF ADMISSION: 08/23/2017. DATE OF DISCHARGE: 09/03/2017. DISPOSITION ON DISCHARGE: Kimberli Hollis. PRIMARY DIAGNOSES: Diverticular abscess thought secondary to perforated diverticulitis, suspected vascular dementia with behavioral disturbances, urinary retention, status post Yung catheter placement. MEDICATIONS ON DISCHARGE: 1. Flagyl 500 mg three times daily for 14 days. 2. Ciprofloxacin 500 mg twice daily for 14 days. 3. MiraLax 17 gm at bedtime as needed. 4. Acetaminophen 650 mg every 6 hours as needed. 5. The patient has previously Haloperidol at night secondary to agitation, last administered 09/01/2017. 6. She has also previously received 12.5 mg of Seroquel at bedtime for agitation, last administered 5 days prior to discharge. PERTINENT MICROBIOLOGY: Gram stain and culture from percutaneous aspiration of sigmoid abscess includes E. coli, proteus penneri, pseudomonas aeruginosa, clostridium ramosum, and logan albicans. First three organisms are sensitive to Ciprofloxacin. FOLLOW-UP INSTRUCTIONS: The patient's daughter is the decision maker and has been equivocal regarding goals for hospice. She has indicated at multiple time that her ultimate goal is for the patient to "just be comfortable." However, at the time of discharge she did relay to case management that she would like the patient to get stronger in an effort to return home, which is not inconsistent with hospice, but may be if interventions taken are not in line with comfort. Can consider repeat CAT scan of the abdomen to evaluate abscess for resolution or continue antibiotics longer and to guide duration of antibiotics depending on continued goals of care. HISTORY OF PRESENT ILLNESS AND HOSPITAL COURSE: This is an 87-year-old female with a past medical history as outlined in the history of present illness on the day of admission including dementia who had increasing falls at home in association with hallucinations. She was seen in the emergency room and was found with urinary retention as well as abdominal pain. There was concern for a small bowel obstruction. Abdomen x-ray was performed and was concerning for early partial small bowel obstruction. The patient's abdominal pain continued and she ultimately underwent a CT abdomen and pelvis which indicated a 5 to 6 cm loculated gas and fluid collection along the sigmoid colon consistent with an abscess, possibly secondary to diverticulitis. The patient underwent a percutaneous aspiration with 1 mm of purulent fluid removed whose culture was indicated above, which was polymicrobial. The patient was treated with Zosyn with improvement in her pain, although continued deterioration in her mental status. It was thought in the setting of her advanced dementia, this critical illness has worsened her mental status in conjunction with vascular dementia with poor prognosis for recovery to any semblance of independent living. During the course of her hospital stay, the patient has eaten very little secondary to anorexia. The patient was evaluated by Dr. Goetz and his team and the patient is not a surgical candidate. The patient will be transferred to [facility] for continued physical therapy with hopes that she may be able to return home and receive some form of palliative care hospice in that location. Thirty minutes were spent in the discharge of patient, greater than half was spent [id number] with the patient. [id number]/[facility] #: [id number] DARI
== END 2017-09-03 12:00 | DRG 884 ==
LOC: ED 10:41 → MEDTELE 13:06 → OBSVTOIN 13:07 → MED 08-27 20:12
PROVIDERS: ADMIT Internal Medicine; ATTEND Internal Medicine
PROC: 0T9B70Z Drainage of Bladder with Drainage Device, Via Natural or Artificial Opening (ICD-10-PCS; principal; 2017-08-23)
PROC: 0W9G3ZX Drainage of Peritoneal Cavity, Percutaneous Approach, Diagnostic (ICD-10-PCS; 2017-08-29)
DX: F01.51 Vascular dementia, unspecified severity, with behavioral disturbance (principal); K56.600 Partial intestinal obstruction, unspecified as to cause; E46 Unspecified protein-calorie malnutrition; B96.7 Clostridium perfringens [C. perfringens] as the cause of diseases classified elsewhere; K57.20 Diverticulitis of large intestine with perforation and abscess without bleeding; E87.1 Hypo-osmolality and hyponatremia; B96.5 Pseudomonas (aeruginosa) (mallei) (pseudomallei) as the cause of diseases classified elsewhere; Z68.1 Body mass index [BMI] 19.9 or less, adult; I10 Essential (primary) hypertension; E87.6 Hypokalemia; R62.7 Adult failure to thrive; R33.9 Retention of urine, unspecified; Z66 Do not resuscitate; K59.00 Constipation, unspecified; B96.20 Unspecified Escherichia coli [E. coli] as the cause of diseases classified elsewhere; B96.4 Proteus (mirabilis) (morganii) as the cause of diseases classified elsewhere; B37.9 Candidiasis, unspecified
CPT/HCPCS: 36415; 70450; 70551; 71045; 74019; 74177; 75989; 76705; 80048; 80053; 81003; 81015; 82140; 82378; 82550; 83605; 83690; 83735; 83880; 84134; 84484; 85025; 85610; 85730; 86140; 87045; 87046; 87070; 87076; 87077; 87086; 87106; 87186; 87205; 87640; 87641; 87899; 93005; 99284; A9270-GY; J1630; J2405; J2543; J3010; J3475; J3480; Q9967

== ENCOUNTER 2017-09-11 16:10 | Emergency (ER) | payer MEDICARE ==
[2017-09-11] MEDS ORDERED: NS 0.9% 1000 ML* 1,000 ML IV SCH (16:30)
[2017-09-11 17:31] LABS: ABS Basophils 0.1 10^3/ul (0-0.2); ABS Eosinophils 0.2 10^3/ul (0-0.6); ABS Lymphocytes 0.4 10^3/ul (1.0-4.8); ABS Monocytes 1.1 10^3/ul (0-0.8); ABS Neutrophils 7.2 10^3/ul (1.5-7.7); ABS Nucleated RBC 0 10^3/ul; Eosinophil % 2.5 % (0-6); Hematocrit 34 % (35-47); Hemoglobin 11.2 g/dl (12.0-16.0); Lymphocyte % 4.8 % (25-47); Mean Corpuscular HGB Conc 33 g/dl (31-36); Mean Corpuscular Hemoglobin 28 pg (27-31); Mean Corpuscular Volume 85 fL (80-97); Mean Platelet Volume 8 um3 (7.4-10.4); Nucleated Red Blood Cells % 0; Platelet Count 487 10^3/ul (150-450); Red Blood Count 3.94 10^6/ul (4.0-5.4); Red Cell Distribution Width 15 % (10.5-15)
--- NOTE | 2017-09-11 17:42 | RAD ---
INDICATION: Abdominal pain COMPARISON: CT August 28, 2017 TECHNIQUE: Noncontrast axial source images were acquired from the level hemidiaphragms to the symphysis pubis. Lack of oral and intravenous contrast limiting evaluation of the bowel and solid viscera. Lung bases: There are bilateral pleural effusions right greater than left with bibasilar consolidative changes likely reflecting compression atelectasis there is minor worsening. Liver: The liver is normal in size. Noncontrast imaging shows no evidence of a hepatic mass or ductal dilatation. Gallbladder: Not well evaluated. Spleen: The spleen is normal in size. There are no specific abnormalities on noncontrast evaluation. There is limited evaluation due to beam hardening artifact from the patient's arms which was not raised above her head. Pancreas: Very limited evaluation. No gross abnormalities.. Adrenal glands: No identifiable adrenal mass. Kidneys/Bladder: Noncontrast imaging demonstrates no renal mass or nephrolithiasis. Adenopathy: Limited ability to evaluate for adenopathy on a noncontrast examination. Fluid collections: There is moderate free fluid in the presacral space. Vessels: Extensive atherosclerotic changes Pelvic organs: No identifiable abnormalities of the uterus or adnexal structures GI tract: There is diffuse gaseous distention. The right colon is distended. The cecum measures 9 cm. There are findings suggestive but not definitive for a small area of pneumatosis. There are scattered air-fluid levels within the colon. There is limited evaluation stomach and small bowel due to lack of oral and intravenous contrast. There are several small foci of gas which could conceivably be extraluminal.. This suggests possibility of hollow viscus with perforation. The earlier CT showed an abscess which is not delineated today perhaps related to the lack of oral and intravenous contrast. Soft tissues: No soft tissue abnormalities of the extraperitoneal abdomen or pelvis are identified. Osseous structures: There are no acute osseous findings. IMPRESSION: 1. This is a limited noncontrast study. 2. The right colon is moderately distended. There are scattered air-fluid levels. The findings may relate to a ileus versus megacolon. There may be a small amount pneumatosis although this is not a definitive finding. 3. There may be several small foci of air which are extraluminal. This is not a definitive finding but would not be inconsistent with earlier imaging findings which showed the presence of an abscess. 4. Moderate amount of free fluid in the presacral space. 5. The bilateral pleural effusions right greater than left with basilar consolidative changes with mild worsening
[2017-09-11 17:44] LABS: INR 1.26 (0.77-1.02)
[2017-09-11] MEDS: Piperacillin/Tazobac ADVAN(*) 3.375 GM in NS 0.9% 100 ML* 100 ML IVPB ONE ×2 (18:47→19:03)
[2017-09-11] MEDS ORDERED: Zosyn per Pharmacy* NOTE FOLLOW UP SCH (19:00)
--- NOTE | 2017-09-11 19:09 | ED ---
Marcela Gan Julia, scribed for Yifan Dang on 09/11/17 at 1839 . Complex/Multi-Sys Presentation - HPI Summary HPI Summary: This patient is a 87 year old F BIBA to [facility] from [facility] due to abdominal distention and decreased urine output. Patient reports abdominal pain and dehydration. HPI is limited; patient is a poor historian. - History Of Current Complaint Chief Complaint: EDAbdPain Time Seen by Provider: 09/11/17 16:30 Hx Obtained From: Patient, EMS Hx From Patient Unobtainable Due To: Other - poor historian Location: Pain At: - diffuse Associated Signs And Symptoms: Positive: Decreased Responsiveness, Other - abdominal distention and decreased urine output - Allergies/Home Medications Allergies/Adverse Reactions: Allergies Allergy/AdvReac Type Severity Reaction Status Date / Time diazepam [From Valium] Allergy Unknown Verified 08/24/17 06:57 Reaction Details doxycycline Allergy Unknown Verified 08/24/17 06:57 Reaction Details Home Medications: Home Medications Sodium Chloride 0.9% IRRIG* 0.9 % IM MONTHLY 09/11/17 [History Confirmed ] PMH/Surg Hx/FS Hx/Imm Hx Endocrine/Hematology History: Denies: Hx Diabetes, Hx Thyroid Disease Cardiovascular History: Reports: Hx Hypertension Denies: Hx Pacemaker/ICD Respiratory History: Denies: Hx Asthma, Hx Chronic Obstructive Pulmonary Disease (COPD) GI History: Denies: Hx Ulcer Musculoskeletal History: Reports: Hx Back Problems Sensory History: Reports: Hx Contacts or Glasses Denies: Hx Hearing Aid Opthamlomology History: Reports: Hx Contacts or Glasses Neurological History: Reports: Hx Migraine Psychiatric History: Reports: Hx Depression - in her 20's Denies: Hx Panic Disorder - Surgical History Surgery Procedure, Year, and Place: fb removed from thigh. ganglion cyst on foot Infectious Disease History: No Infectious Disease History: Denies: Hx Hepatitis, Hx Human Immunodeficiency Virus (HIV), Traveled Outside the [place] in Last 30 Days - Family History Family History: FMHx is unattainable because patient is a poor historian - Social History Alcohol Use: None Substance Use Type: Reports: None Smoking Status (MU): Light Every Day Tobacco Smoker Type: Cigarettes Review of Systems Positive: Abdominal Pain Positive: other - decreased output All Other Systems Reviewed And Are Negative: Yes - Comments Additional Review of Systems Comments: ROS is limited because patient is a poor historian. Physical Exam - Summary Physical Exam Summary: Appearance:mild distress Skin: warm, dry, reflects adequate perfusion Head/face: dry mucosa membranes Eyes: EOMI, KELIN ENT: normal Neck: supple, non-tender Respiratory: CTA, breath sounds present Cardiovascular: RRR, pulses symmetrical Abdomen: diffuse abdominal tenderness Bowel: present Musculoskeletal: no edema Neuro: confused Triage Information Reviewed: Yes Vital Signs On Initial Exam: Initial Vitals Temp Pulse Resp BP Pulse Ox 98.8 F 81 16 151/83 93 09/11/17 16:16 09/11/17 16:16 09/11/17 16:16 09/11/17 16:16 09/11/17 16:16 Vital Signs Reviewed: Yes Diagnostics - Vital Signs Vital Signs Temp Pulse Resp BP Pulse Ox 09/11/17 16:16 98.8 F 81 16 151/83 93 - Laboratory Lab Results: Lab Results 09/11/17 09/11/17 09/11/17 Range/Units 17:06 17:06 17:06 WBC 9.0 (3.5-10.8) 10^3/ul RBC 3.94 L (4.0-5.4) 10^6/ul Hgb 11.2 L (12.0-16.0) g/dl Hct 34 L (35-47) % MCV 85 (80-97) fL MCH 28 (27-31) pg MCHC 33 (31-36) g/dl RDW 15 (10.5-15) % Plt Count 487 H D (150-450) 10^3/ul MPV 8 (7.4-10.4) um3 Neut % (Auto) 80.0 (38-83) % Lymph % (Auto) 4.8 L (25-47) % Peach % (Auto) 11.9 H (1-9) % Eos % (Auto) 2.5 (0-6) % Baso % (Auto) 0.8 (0-2) % Absolute Neuts (auto) 7.2 (1.5-7.7) 10^3/ul Absolute Lymphs (auto) 0.4 L (1.0-4.8) 10^3/ul Absolute Monos (auto) 1.1 H (0-0.8) 10^3/ul Absolute Eos (auto) 0.2 (0-0.6) 10^3/ul Absolute Basos (auto) 0.1 (0-0.2) 10^3/ul Absolute Nucleated RBC 0 10^3/ul Nucleated RBC % 0 INR (Anticoag Therapy) 1.26 H (0.77-1.02) APTT 29.5 (26.0-36.3) seconds Sodium 135 (133-145) mmol/L Potassium 3.2 L (3.5-5.0) mmol/L Chloride 103 (101-111) mmol/L Carbon Dioxide 24 (22-32) mmol/L Anion Gap 8 (2-11) mmol/L BUN 45 H (6-24) mg/dL Creatinine 5.71 H (0.51-0.95) mg/dL Est GFR ( Amer) 9.0 (>60) Est GFR (Non-Af Amer) 7.0 (>60) BUN/Creatinine Ratio 7.9 L (8-20) Glucose 110 H (70-100) mg/dL Lactic Acid (0.5-2.0) mmol/L Calcium 8.3 L (8.6-10.3) mg/dL Magnesium 1.7 L (1.9-2.7) mg/dL Total Bilirubin 0.60 (0.2-1.0) mg/dL AST 19 (13-39) U/L ALT 7 (7-52) U/L Alkaline Phosphatase 40 (34-104) U/L Troponin I 0.02 (<0.04) ng/mL C-Reactive Protein 42.62 H (< 5.00) mg/L Total Protein 5.9 L (6.4-8.9) g/dL Albumin 2.7 L (3.2-5.2) g/dL Globulin 3.2 (2-4) g/dL Albumin/Globulin Ratio 0.8 L (1-3) Lipase 71 (11.0-82.0) U/L 09/11/17 Range/Units 17:06 WBC (3.5-10.8) 10^3/ul RBC (4.0-5.4) 10^6/ul Hgb (12.0-16.0) g/dl Hct (35-47) % MCV (80-97) fL MCH (27-31) pg MCHC (31-36) g/dl RDW (10.5-15) % Plt Count (150-450) 10^3/ul MPV (7.4-10.4) um3 Neut % (Auto) (38-83) % Lymph % (Auto) (25-47) % Peach % (Auto) (1-9) % Eos % (Auto) (0-6) % Baso % (Auto) (0-2) % Absolute Neuts (auto) (1.5-7.7) 10^3/ul Absolute Lymphs (auto) (1.0-4.8) 10^3/ul Absolute Monos (auto) (0-0.8) 10^3/ul Absolute Eos (auto) (0-0.6) 10^3/ul Absolute Basos (auto) (0-0.2) 10^3/ul Absolute Nucleated RBC 10^3/ul Nucleated RBC % INR (Anticoag Therapy) (0.77-1.02) APTT (26.0-36.3) seconds Sodium (133-145) mmol/L Potassium (3.5-5.0) mmol/L Chloride (101-111) mmol/L Carbon Dioxide (22-32) mmol/L Anion Gap (2-11) mmol/L BUN (6-24) mg/dL Creatinine (0.51-0.95) mg/dL Est GFR ( Amer) (>60) Est GFR (Non-Af Amer) (>60) BUN/Creatinine Ratio (8-20) Glucose (70-100) mg/dL Lactic Acid 1.5 (0.5-2.0) mmol/L Calcium (8.6-10.3) mg/dL Magnesium (1.9-2.7) mg/dL Total Bilirubin (0.2-1.0) mg/dL AST (13-39) U/L ALT (7-52) U/L Alkaline Phosphatase (34-104) U/L Troponin I (<0.04) ng/mL C-Reactive Protein (< 5.00) mg/L Total Protein (6.4-8.9) g/dL Albumin (3.2-5.2) g/dL Globulin (2-4) g/dL Albumin/Globulin Ratio (1-3) Lipase (11.0-82.0) U/L Result Diagrams: 09/11/17 17:06 09/11/17 17:06 Lab Statement: Any lab studies that have been ordered have been reviewed, and results considered in the medical decision making process. - CT A/P CT Interpretation Completed By: Radiologist - 1. This is a limited noncontrast study. 2. The right colon is moderately distended. There are scattered air- fluid levels. The findings may relate to a ileus versus megacolon. There may be a small amount pneumatosis although this is not a definitive finding. 3. There may be several small foci of air which are extraluminal. This is not a definitive finding but would not be inconsistent with earlier imaging findings which showed the presence of an abscess. 4. Moderate amount of free fluid in the presacral space. 5. The bilateral pleural effusions right greater than left with basilar consolidative changes ED Physician has reviewed this report. Complex Multi-Symp Course/Dx Course Of Treatment: Patient is brought in by EMS from [facility] for abdominal distention and decreased urine output. Bloodwork is collected. CT A/ P is consistent with interstitial pneumatitosis. Patient is given IV fluids. At 18:24, Dr. Goetz, surgery, states this patient does not qualify for surgery and should be admitted as a medical patient. Dr. Figueroa agrees to admit this patient. - Diagnoses Differential Diagnoses/HQI/PQRI: Sepsis, Urinary Tract Infection, Other - diverticulitis/sepsis Provider Diagnoses: Abdominal pain, Interstitial pneumonitis, Sepsis - Physician Notifications Discussed Care Of Patient With: David Figueroa MD Time Discussed With Above Provider: 18:30 Instructed by Provider To: Admit As Inpatient Discharge - Discharge Plan Condition: Stable Disposition: ADMITTED TO [facility] Referrals: Jhonatan Snow MD [Primary Care Provider] - The documentation as recorded by the Marcela ortiz Julia accurately reflects the service I personally performed and the decisions made by , Yifan Dang.
[2017-09-11] MEDS ORDERED: LORazepam TAB(*) 1 MG PO ONE (19:29)
[2017-09-11] MEDS ORDERED: Morphine ORAL CONCENTRATE* 5 MG/0.25 ML ORAL.SYRIN SL ONE (19:35)
[2017-09-11 20:06] VITALS: BP 150/93
--- NOTE | 2017-09-11 23:55 | CONS ---
CONSULTATION REPORT: DATE OF CONSULT: 09/11/17 - EMERGENCY DEPT REQUESTING PHYSICIAN IN CONSULT: Dr. Dang. MY ATTENDING PHYSICIAN WHILE IN THE HOSPITAL: Dr. Roselia Morton (report dictated by Juanita Fuentes NP) REASON FOR CONSULT: Evaluation and admission. CHIEF COMPLAINT: Abdominal pain. HISTORY OF PRESENT ILLNESS: Ms. Vidal is an 87-year-old female patient who just about a week ago was here diagnosed with a diverticular abscess thought secondary to perforated diverticulitis and urinary retention. She came in and was evaluated. She underwent a percutaneous abscess, but they were only able to drain 1 mL of purulent fluid, which was polymicrobial. She was started on antibiotics and had improvement in her pain, but had deterioration in her mental status, ultimately was felt to have advanced dementia. She was deemed not to be a surgical candidate given poor prognosis for recovery. The patient was discharged to [facility]. She was evaluated at that point for hospice, but the patient's daughter really wanted to try rehab to see if she can get better. The patient today was in [facility] and she was evaluated by one of the providers there. They were concerned because the abdomen appeared to be distended and she appeared to have possibly acute abdomen. So, she was sent to the hospital today. In evaluating the patient, she states she is not having any pain right now. She is though notably guarding her stomach. She denies any chest pain or shortness of breath. The daughter states that her knowledge was there was concern because of her abdominal exam had worsened and she was sent for a CT scan, which she underwent today. Initially, we were asked to evaluate for admission on the patient due to the findings on the CT scan of distention in the colon and possible pneumatosis and again possible recurrence of infection. Because of this, we were asked to evaluate for admission. PAST MEDICAL HISTORY: Significant for: 1. Diverticular abscess. 2. Dementia. PAST SURGICAL HISTORY: Denied. HOME MEDICATIONS: Include: 1. Cipro 500 mg every 12 hours. 2. Flagyl 500 mg p.o. t.i.d. 3. MiraLAX 17 g at bedtime. 4. Tylenol 650 mg p.o. daily as needed. ALLERGIES TO MEDICATIONS: Include DIAZEPAM and DOXYCYCLINE. FAMILY HISTORY: Mother had a stroke at the age of 108. Father in a work accident. SOCIAL HISTORY: She was a smoker up until 2 weeks ago about a pack a day. Does not drink alcohol. Surrogate decision maker is her daughter. REVIEW OF SYSTEMS: There was no documented fever. She had lost weight. They are unable to quantify how much. There is no double vision. There is no ear discharge. She denies having any rhinorrhea. No sore throat. No thyroid enlargement. Denied having any chest pain. There is no orthopnea, no nocturnal dyspnea. There was abdominal distention. There is pain with palpation according to the daughter and the patient. There were no reports of loss of consciousness, pruritus and no skin ulcerations. Review of 14 systems completed, all others negative. PHYSICAL EXAM: Vital Signs: Blood pressure 151/83, pulse 81, respirations 16, O2 sat 93%, temperature 98.8. General: At this time, Ms. Vidal is an 87-year- old female patient. She appears to be cachectic. She is sitting in the ED stretcher. She does not appear to be in any acute distress. HEENT: Head: Atraumatic. Eyes: Sclerae anicteric. Neck: Supple. Throat: Oral mucosa appears to be dry. No oropharyngeal erythema. Heart: Sounds S1, S2. Regular rate and rhythm. No murmurs, rubs, or gallops. Lungs: Clear to auscultation. No wheezes, rales, or rhonchi. Abdomen: Distended. She had diffuse tenderness. She had guarding. There was some rigidity. Extremities: Pulses were 2+ throughout. Moving all 4 extremities with 5/5 strength. Neurologically , she is alert to herself only, but confused to person, time, and place. Her speech is clear. No gross focal deficits. Skin: Intact. DIAGNOSTIC STUDIES/LAB DATA: WBC of 9, RBC of 3.94, hemoglobin 11.2, hematocrit of 34, platelet count of 45. INR 1.26. PTT of 29.5. Sodium 135, potassium of 3.2, chloride of 103, bicarb 24, BUN was 45, her creatinine was 5.71, creatinine yesterday was 2.07, glucose 110, lactic 1.5, calcium 8.3, mag 1.7, total bilirubin 0.6, AST 19, ALT 7, alk phos 40, troponin 0.02, lipase 71. She had an abdominal and pelvis CT scan done today, which read impression: Limited noncontrast study. Right colon is moderately dilated and distended. There is scattered air fluid levels. The findings may relate to ileus versus megacolon. There may be a small amount of pneumatosis, although this is not a definitive finding. There may be several small foci of air, which is extraluminal. This is not a definitive finding, but would not be inconsistent with early imaging findings, which showed the presence of an abscess, bilateral pleural effusions, right greater than left, bibasilar consolidative changes, mild worsening. Old medical records were reviewed. ASSESSMENT AND PLAN: Ms. Vidal is an 87-year-old female patient coming into the ED today with concerns of worsening abdominal exam. We were asked to evaluate initially for admission. My recommendations at this point are. 1. Abdominal distention, abdominal tenderness and pain. At this point, it does appear that the patient has what appears to be a possible obstruction of the colon with possible pneumatosis, which is again concerning. This may be secondary to the abscess. I did discuss the case with Dr. Goetz, who knows the case. Again, it is still felt that the patient does not appear to be a surgical candidate. She is cachetic, frail, and again I agree that she would not have favorable outcome should surgery be pursued. I discussed this with the family. They did not want to pursue surgery. In fact, they would like to pursue comfort measures. They request him to be transferred back to [facility] because they are comfortable with the staff there and the patient's daughter feels that the patient would be better served there and hopefully have less confusion because this is becoming a familiar place. Frankly, I am in agreement. I did discuss with the providers at [facility]. I also spoke with nursing staff over there. The plan will be to send her back with Roxanol 5 mg every 6 hours and Ativan. I would recommend sending her out with 1 mg every 6 hours as needed for anxiety and the Roxanol for pain. Continue with comfort measures only. I would only have her come back to the hospital if her pain could not be controlled adequately over to [facility]; but at this point , I would keep her there with the recommendations of hospice care. 2. Acute renal failure. It is a concerning finding. She was bladder scanned here. She has no urine or bladder. The Yung does have a little bit of urine, but she is becoming aneuric. Creatinine has doubled in the less than 24 hours despite IV hydration. She is again progressing in the worsening renal failure and the family does not want to pursue dialysis. Again, I would recommend comfort care and dementia. 3. Dementia. Continue with supportive care and focus on comfort. I did discuss this with my attending, Dr. Morton. She was in agreement. We will transfer the patient back to [facility] with a day supply of Roxanol and Ativan until [facility] can get the appropriate medications and I would recommend signing up with Hospice. TIME SPENT: Time spent on consult 60 minutes. Greater than half the time spent [id number] with the patient obtaining my history and physical, the other half of the time was spent going over the plan of care with the patient and implementing plan of care. JUANITA FUENTES NP [id number]/[facility] #: [id number] DARI
== END 2017-09-11 22:14 | disposition short-term general hospital (02) ==
LOC: ED 16:10
DX: A41.9 Sepsis, unspecified organism (principal); J84.89 Other specified interstitial pulmonary diseases; R10.84 Generalized abdominal pain; I10 Essential (primary) hypertension; G43.909 Migraine, unspecified, not intractable, without status migrainosus; Z88.1 Allergy status to other antibiotic agents; Z88.8 Allergy status to other drugs, medicaments and biological substances; F17.210 Nicotine dependence, cigarettes, uncomplicated
CPT/HCPCS: 36415; 74176; 80053; 83605; 83690; 83735; 84484; 85025; 85610; 85730; 86140; 96360; 96361; 99284; J2543